=== PATIENT | male | born 1945 | race Caucasian/White ===

== ENCOUNTER 2016-05-02 12:00 | Inpatient (IN) | payer MEDICARE ==
[2016-05-02] VITALS (9 sets, daily range): BP systolic 64–161; BP diastolic 45–69; PULSE 74–92; RESP 16–20; TEMP 95.7–98.9; O2SAT 94–98
[~2016-05-02] VITALS: Ht 170.2 cm; Wt 126.5 kg
[~2016-05-02 12:00] MED LIST: AMIT100T6 PO; ASPI1TAB69 PO; ATOR1TAB18 PO; BACT800T5 PO; BUME2TAB PO; CHOL50006; COZA50TA PO; DIGO0.25 PO; FENO1TAB76 PO; FINA5TAB2 PO; INSU100V2 SQ; ISOS60TA PO; LEVEMIR SC; LINA145C PO; MILN50 PO; NITR1SUB3 SL; NUCY50TA9 PO; OMEG1000 PO; OMEP20CA5 PO; PILO5TAB3 PO; PLAV75TA29 PO; PREG100 PO; RANO500 PO; TAB-TAB PO; TAMS5CAP PO; TOPR25TA PO; TRAM50TA PO; TRIL135C PO; ZOLP10TA3 PO
[2016-05-02] MEDS ORDERED: KETOROLAC TROMETHAMINE 30 MG/ML (IVP) VIAL IVP ONE (12:45)
[2016-05-02] MEDS ORDERED: CLINDAMYCIN INJ 900 MG in SODIUM CHLORIDE 0.9% INJ 100 ML IV ONE (12:45)
--- NOTE | 2016-05-02 12:46 | PD ---
HPI Chief Complaint: Skin Problem Time Seen by Provider: 12:22 Travel History International Travel<30 days: No Contact w/Intl Traveler<30days: No Traveled to known affect area: No History of Present Illness HPI 70yo M with IDDM, HTN, CAD presents to the ED with c/o worsening redness, edema and pain in left lower extremity. Pt was seen at [facility] on 04/26/16 for left leg cellulitis and discharged with bactrim. Pt states he has been taking bactrim as prescribed but symptoms are worsening. Denies any fever, chest pain , sob, n/v, abdominal pain, new weakness or numbness. 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) Blood Disorders: Yes (BRUISING WHERE INSULIN GIVEN, BLOOD IN URINE, FT BLEEDING & NOT ABLE TO STO) Heart Rhythm Problems: No Cancer: No Cardiovascular Problems: Yes High Cholesterol: Yes Chest Pain: Yes Congestive Heart Failure: Yes COPD: No Cerebrovascular Accident: No Coronary Artery Disease: Yes Diabetes: Yes Diminished Hearing: No Endocrine: Yes GERD: No Glaucoma: Yes (POSITIVE FOR HARDIK CONE DISEASE) Genitourinary: No Headaches: No Hepatitis: No Hiatal Hernia: No Hypertension: Yes Immune Disorder: Yes Implanted Vascular Access Dvce: Yes Kidney Stones: No Musculoskeletal: No Neurologic: Yes (NEUROPATHY) Psychiatric: No Reproductive: No Respiratory: No Migraines: No Myocardial Infarction: Yes (1995) Renal Failure: Yes Seizures: No Sleep Apnea: No Thyroid Disease: No Ulcer: No PNEUMOCCOCAL Vaccine (Year): 1 Past Surgical History Abdominal Surgery: Yes (right inquinal hernia repair) Appendectomy: No Body Medical Devices: LOOP RECORDER, SPINAL CORD STIMULATOR Cholecystectomy: No Coronary Stent: Yes (X5. LAST 2006.) Ear Surgery: No Endocrine Surgery: No Eye Surgery: No Genitourinary Surgery: No Gynecologic Surgery: No Neurologic Surgery: Yes (SPINAL STIMULATOR IMPLANT) Oral Surgery: No Pacemaker: No Thoracic Surgery: No Other Surgery: Yes Social History Alcohol Use: Yes (rare) Tobacco Use: No Substance Use: No Allergies-Medications (Allergen,Severity, Reaction): Coded Allergies: Tigan (Verified Allergy, Severe, anaphylactic, 05/02/16) Reported Meds & Prescriptions Reported Meds & Active Scripts Active Bactrim DS (Sulfamethoxazole-Trimethoprim) 800-160 Mg Tab 1 Tab PO BID Pilocarpine 5 Mg Tab 5 Mg PO TID Reported Sisi Dahl Pen Inj (Insulin Glargine) 300 Unit/Ml Pen 100 Units SQ HS Humalog Inj (Insulin Human Lispro) 1,000 Unit/10 Ml Vial 1-9 Units SQ ACHS Max dose at bedtime:( )units; sugars< 70,(0)units; sugars 150-199,(1)unit; sugars 200-249,(3)units; sugars 250-299,(5)units; sugars 300-349,(7)units; sugars more than 349,(9)units. Nucynta (Tapentadol) 50 Mg Tab 50 Mg PO 1100.1500 Nucynta ER (Tapentadol) 100 Mg Sandip 100 Mg PO DAILY Nucynta ER (Tapentadol) 50 Mg Sandip 50 Mg PO HS Tramadol ER 24 HR (Tramadol HCl) 100 Mg Sandip 100 Mg PO DAILY Savella (Milnacipran) 50 Mg Tab 50 Mg PO BID Omeprazole 20 Mg Tab 20 Mg PO DAILY Lyrica (Pregabalin) 100 Mg Cap 100 Mg PO TID Losartan (Losartan Potassium) 50 Mg Tab 50 Mg PO DAILY Fish Oil + D3 (Fish Oil-Cholecalciferol) 1,200-1,000 Mg-Unit Cap 1 Cap PO DAILY Ranexa ER 12 HR (Ranolazine) 500 Mg Tab 500 Mg PO BID Isosorbide Mononitrate ER (Isosorbide Mononitrate) 60 Mg Tab 60 Mg PO DAILY Plavix (Clopidogrel Bisulfate) 75 Mg Tab 75 Mg PO DAILY Atorvastatin (Atorvastatin Calcium) 80 Mg Tab 80 Mg PO HS Aspirin 81 Mg Tabdr 81 Mg PO BID Vitamin D (Cholecalciferol) 5,000 Unit Tab Tramadol (Tramadol HCl) 50 Mg Tab 50 Mg PO BID PRN Toprol XL (Metoprolol Succinate) 25 Mg Tab 50 Mg PO HS Nucynta (Tapentadol) 50 Mg Tab 50 Mg PO BID PRN Flomax (Tamsulosin HCl) 0.4 Mg Cap 0.4 Mg PO BID Savella (Milnacipran) 50 Mg Tab 50 Mg PO BID Nitroglycerin SL (Nitroglycerin) 0.4 Mg Subl 0.4 Mg SL DIRECTED PRN ONE TABLET UNDER THE TONGUE NEEDED FOR CHEST PAIN, MAY REPEAT EVERY FIVE MINUTES FOR A TOTAL OF 3 DOSES OR CALL 911 IF NO RELIEF Linzess (Linaclotide) 145 Mcg Cap 145 Mcg PO DAILY Finasteride 5 Mg Tab 5 Mg PO DAILY Do not crush. Bumetanide 2 Mg Tab 2 Mg PO BID Review of Systems Except as stated in HPI: all other systems reviewed are Neg Physical Exam Narrative GENERAL: 70yo M not in distress. SKIN: Warm and dry. HEAD: Atraumatic. Normocephalic. NECK: Trachea midline. No JVD. CARDIOVASCULAR: Regular rate and rhythm. No murmur appreciated. RESPIRATORY: No accessory muscle use. Clear to auscultation. Breath sounds equal bilaterally. GASTROINTESTINAL: Abdomen soft, non-tender, nondistended. No rebound tenderness or guarding. MUSCULOSKELETAL: LLE: +Erythema dorsum of foot and ankle. +TTP up to mid tib/ fib. +Edema that is worst than right side. Pt has peripheral neuropathy and decreased sensation in bilateral legs that is not new. No ulcers. No drainage or fluctuance. NEUROLOGICAL: Awake and alert. No obvious cranial nerve deficits. Motor grossly within normal limits. Normal speech. PSYCHIATRIC: Appropriate mood and affect; insight and judgment normal. Data Data Last Documented VS Vital Signs Date Time Temp Pulse Resp B/P Pulse Ox O2 Delivery O2 Flow Rate FiO2 05/02/16 12:40 88 18 113/63 98 Room Air 05/02/16 12:39 98.2 Orders Basic Metabolic Panel (Bmp) (05/02/16 12:38) Complete Blood Count With Diff (05/02/16 12:38) Blood Culture (05/02/16 12:38) Iv Access Insert/Monitor (05/02/16 12:38) Ketorolac Inj (Toradol Inj) (05/02/16 12:45) Clindamycin Inj (Cleocin Inj) (05/02/16 12:45) Lactic Acid Sepsis Protocol (05/02/16 12:38) Foot, Limited (2vws) (05/02/16 ) Tibia/Fibula (Ap/Lat) (05/02/16 ) Westergren Sedimentation Rate (05/02/16 12:38) C-Reactive Protein (Crp) (05/02/16 12:38) Us Leg Venous Doppler (05/02/16 ) Admit Order (Ed Use Only) (05/02/16 14:33) Labs Laboratory Tests Test 05/02/16 13:00 White Blood Count 4.6 TH/MM3 Red Blood Count 4.37 MIL/MM3 Hemoglobin 13.2 GM/DL Hematocrit 39.0 % Mean Corpuscular Volume 89.4 FL Mean Corpuscular Hemoglobin 30.2 PG Mean Corpuscular Hemoglobin 33.8 % Concent Red Cell Distribution Width 13.5 % Platelet Count 320 TH/MM3 Mean Platelet Volume 8.6 FL Neutrophils (%) (Auto) 54.5 % Lymphocytes (%) (Auto) 29.6 % Monocytes (%) (Auto) 10.1 % Eosinophils (%) (Auto) 4.3 % Basophils (%) (Auto) 1.5 % Neutrophils # (Auto) 2.4 TH/MM3 Lymphocytes # (Auto) 1.4 TH/MM3 Monocytes # (Auto) 0.5 TH/MM3 Eosinophils # (Auto) 0.2 TH/MM3 Basophils # (Auto) 0.1 TH/MM3 CBC Comment DIFF FINAL Differential Comment Erythrocyte Sedimentation Rate 45 mm/hr Sodium Level 139 MEQ/L Potassium Level 4.0 MEQ/L Chloride Level 102 MEQ/L Carbon Dioxide Level 29.1 MEQ/L Anion Gap 8 MEQ/L Blood Urea Nitrogen 32 MG/DL Creatinine 1.60 MG/DL Estimat Glomerular Filtration 43 ML/MIN Rate Random Glucose 108 MG/DL Lactic Acid Level 1.4 mmol/L Calcium Level 8.9 MG/DL C-Reactive Protein LESS THAN 0.29 MG/DL MDM Medical Decision Making Medical Screen Exam Complete: Yes Emergency Medical Condition: Yes Differential Diagnosis Cellulitis that failed outpatient treatment vs. DVT vs. osteomyelitis Narrative Course 70yo M with left leg cellulitis that failed outpatient treatment. Labs reviewed , no leukocytosis but elevated ESR. lactic acid 1.4. Elevated BUN/creatinine, mildly elevated from baseline. Blood glucose 108. Xray left foot showed nonspecific soft tissue swelling. Xray left tib/fib sowed mild primary degenerative changes of knee joint. US lower lower ext sowed no DVT. Discussed with Dr. Martinez who accepted the patient. I went to evaluate the pt since blood pressure reading was low. Pt states that is his baseline and he is not complaining of any symptoms. Pt has normal mental status with normal HR. Diagnosis Primary Impression: Cellulitis of foot Admitting Information Admitting Physician Requests: Admit Tayla Frank DO May 02, 2016 12:46
[2016-05-02 13:18] LABS: AUTOMATED NEUTROPHIL # 2.4 TH/MM3 (1.8-7.7); BASOPHIL # 0.1 TH/MM3 (0-0.2); BASOPHIL % 1.5 % (0.0-2.0); EOSINOPHIL # 0.2 TH/MM3 (0-0.4); EOSINOPHIL % 4.3 % (0.0-4.0); HEMO FLAGS DIFF FINAL; LYMPH % 29.6 % (9.0-44.0); LYMPHOCYTE # 1.4 TH/MM3 (1.0-4.8); MEAN CELL VOLUME 89.4 FL (80.0-100.0); MEAN CORPUSCULAR HEMOGLOBIN 30.2 PG (27.0-34.0); MEAN CORPUSCULAR HGB CONC 33.8 % (32.0-36.0); MONO % 10.1 % (0.0-8.0); NEUT % 54.5 % (16.0-70.0); PLATELET COUNT 320 TH/MM3 (150-450); RED BLOOD COUNT 4.37 MIL/MM3 (4.50-5.90); RED CELL DISTRIBUTION WIDTH 13.5 % (11.6-17.2); WHITE BLOOD COUNT 4.6 TH/MM3 (4.0-11.0)
[2016-05-02 13:28] LABS: CHLORIDE 102 MEQ/L (98-107); SODIUM (NA) 139 MEQ/L (136-145)
[2016-05-02 13:31] LABS: ANION GAP 8 MEQ/L (5-15); BICARBONATE 29.1 MEQ/L (21.0-32.0)
[2016-05-02 13:32] LABS: BLOOD UREA NITROGEN 32 MG/DL (7-18)
[2016-05-02 13:35] LABS: GLOMERULAR FILTRATION RATE 43 ML/MIN (>89)
--- NOTE | 2016-05-02 13:50 | RADHPO ---
EXAM DATE/TIME: 05/02/2016 13:10 [facility] COMPARISON: No previous studies available for comparison. EXTERNAL COMPARISON : [facility], US LEG, BILATERAL VENOUS DOPPLER, September 30, 2011[facility], US LEG, BILA TERAL VENOUS DOPPLER, December 24, 2013. INDICATIONS : Left leg pain. MEDICAL HISTORY : Myocardial infarction. Hypercholesterolemia. Hypertension. Congestive heart failure. Coronary tanya ry disease. Anticoagulant therapy. Diabetes. Renal disease. GERD. SURGICAL HISTORY : Spinal stimulator implant. Coronary stent. Right inguinal hernia repair. Carpal tunnel release. ENCOUNTER: Initial ACUITY: 1 day PAIN SCORE: 2/10 LOCATION: Left leg. TECHNIQUE: Venous ultrasound of the leg was performed from the inguinal ligament to the proximal calf. Real-capo e, color Doppler and spectral tracing, compression and augmentation techniques were used. FINDINGS: There is normal compressibility of the deep venous system from the inguinal region to the proximal ca lf. No echogenic clot is seen in the lumen of the common femoral, femoral, popliteal, and posterior tibial veins. There is a normal response of the venous system to proximal and distal augmentation an d respiration. CONCLUSION: No evidence of DVT. Ry Yang MD on May 02, 2016 at 13:48 Board Certified Radiologist. This report was verified electronically.
--- NOTE | 2016-05-02 14:01 | RADHPO ---
EXAM DATE/TIME: 05/02/2016 13:44 [facility] COMPARISON: No previous studies available for comparison. INDICATIONS : Left lower leg swelling, redness, and pain, no known injury MEDICAL HISTORY : None. SURGICAL HISTORY : None. ENCOUNTER: Initial ACUITY: 1 week PAIN SCORE: 5/10 LOCATION: Left lower leg FINDINGS: Two view examination of the left tibia demonstrates no evidence of fracture or dislocation. Bony min eralization is normal. The soft tissue structures are intact. There some mild degenerative changes a t the knee joint. CONCLUSION: Mild primary degenerative changes of the knee joint. Otherwise, unremarkable exam of the tibia and fi bula. Ry Yang MD on May 02, 2016 at 13:59 Board Certified Radiologist. This report was verified electronically.
--- NOTE | 2016-05-02 14:02 | RADHPO ---
EXAM DATE/TIME: 05/02/2016 13:49 [facility] COMPARISON: No previous studies available for comparison. INDICATIONS : Left foot swelling, redness, pain, no known injury MEDICAL HISTORY : None. SURGICAL HISTORY : None. ENCOUNTER: Initial ACUITY: 1 week PAIN SCORE: 5/10 LOCATION: Left foot FINDINGS: Two view examination of the left foot demonstrates no dislocation, or fracture. There is diffuse sof t tissue swelling around the foot. The calcaneus is intact. Bony mineralization is normal. There are some primary degenerative changes involving the foot. There is a small heel spur. No radiopaque fore ign bodies. CONCLUSION: 1. Nonspecific soft tissue swelling around the foot. 2. Primary degenerative type changes. 3. Heel spur. Ry Yang MD on May 02, 2016 at 13:59 Board Certified Radiologist. This report was verified electronically.
[2016-05-02] MEDS ORDERED: OMEP20TA PO (14:07)
[2016-05-02] MEDS ORDERED: LYRI100C PO (14:07)
[2016-05-02] MEDS ORDERED: TAPE50TA2 PO (14:07)
[2016-05-02] MEDS ORDERED: FISHCAP4 PO (14:07)
[2016-05-02] MEDS ORDERED: TAPE100T PO (14:07)
[2016-05-02] MEDS ORDERED: TRAM-462 PO (14:07)
[2016-05-02] MEDS ORDERED: NUCY50TA9 PO (14:07)
[2016-05-02] MEDS ORDERED: MILN50 PO (14:07)
[2016-05-02] MEDS ORDERED: HUMALOG SQ (14:07)
[2016-05-02] MEDS ORDERED: LOSA50TA PO (14:07)
[2016-05-02] MEDS ORDERED: INSU1.2I SQ (14:07)
[2016-05-02] MEDS ORDERED: SODIUM CHLOR 0.9% 1000 ML INJ 1,000 ML IV SCH (15:30)
[2016-05-02] MEDS ORDERED: NALOXONE HCL 0.4 MG/ML AMP IV PRN (16:30)
[2016-05-02] MEDS ORDERED: ACETAMINOPHEN 325 MG TAB PO PRN (16:30)
[2016-05-02] MEDS ORDERED: GLUCAGON 1 MG/ML VIAL OTHER PRN (16:30)
[2016-05-02] MEDS ORDERED: ONDANSETRON HCL 4 MG/2 ML VIAL IVP PRN (16:30)
[2016-05-02] MEDS ORDERED: DEXTROSE 50% IN WATER 50 ML VIAL(D50) IV PUSH PRN (16:30)
--- NOTE | 2016-05-02 16:58 | HHI.HP ---
cc: Marky Osullivan MD HPI Service [facility] Primary Care Physician Marky Osullivan MD Admission Diagnosis Cellulitis that failed outpatient treatment Diagnoses: (1) Cellulitis of foot Diagnosis: Principal (2) Failure of outpatient treatment Diagnosis: Principal Chief Complaint: redness, swelling Travel History International Travel<30 Days: No Contact w/Intl Traveler <30 Da: No Traveled to Known Affected Are: No History of Present Illness 70-year-old male with insulin-dependent diabetes, CAD, CHF, hyperlipidemia, hypertension, CKD, and neuropathy is admitted for cellulitis of the left lower extremity with failed outpatient treatment. The patient states redness and swelling started one week ago. He states he went to an urgent care on Tuesday and was prescribed Bactrim twice a day with which he was compliant taking it every day until today. He states his daughter prescribed him Augmentin on Tuesday. He states the redness has worsened extending to the ankle. Patient is noted to have scabbed wound over the legs and arms and he states he has dry skin which he scratches. He does admit to some yellow drainage from a small wound to the left ankle and states there is another one below it. He denies any fevers or chills. Denies any chest pain, shortness of breath, abdominal pain, nausea, vomiting, or diarrhea. Review of Systems Constitutional: DENIES: Fever, Chills Eyes: DENIES: Blurred vision Ears, nose, mouth, throat: DENIES: Throat pain, Ear Pain, Running Nose Respiratory: DENIES: Cough, Shortness of breath Cardiovascular: COMPLAINS OF: Lower Extremity Edema, DENIES: Chest pain Gastrointestinal: DENIES: Abdominal pain, Black stools, Bloody stools, Constipation, Diarrhea, Nausea, Vomiting Genitourinary: DENIES: Hematuria, Dysuria Neurologic: DENIES: Headache Except as stated in HPI: all other systems reviewed are Neg SKIN: redness Past Family Social History Past Medical History CAD, [place] in 1995 and 2000 Hyperlipidemia Hypertension Diabetes Diabetic neuropathy kristel and cone disease CKD BPH Past Surgical History Coronary artery stents 5, last placed in 2007 Loop recorder Spinal cord stimulator Right inguinal hernia repair Lumbar spine surgery by Dr. Herbert regarding 2 discs Bilateral cataract surgery 2 years ago Tonsillectomy Reported Medications Bactrim DS (Sulfamethoxazole-Trimethoprim) 800-160 Mg Tab 1 Tab PO BID Pilocarpine 5 Mg Tab 5 Mg PO TID Reported Sisi Diazloananni Pen Inj (Insulin Glargine) 300 Unit/Ml Pen 100 Units SQ HS Humalog Inj (Insulin Human Lispro) 1,000 Unit/10 Ml Vial 1-9 Units SQ ACHS Max dose at bedtime:( )units; sugars< 70,(0)units; sugars 150-199,(1)unit; sugars 200-249,(3)units; sugars 250-299,(5)units; sugars 300-349,(7)units; sugars more than 349,(9)units. Nucynta (Tapentadol) 50 Mg Tab 50 Mg PO 1100.1500 Nucynta ER (Tapentadol) 100 Mg Sandip 100 Mg PO DAILY Nucynta ER (Tapentadol) 50 Mg Sandip 50 Mg PO HS Tramadol ER 24 HR (Tramadol HCl) 100 Mg Sandip 100 Mg PO DAILY Savella (Milnacipran) 50 Mg Tab 50 Mg PO BID Omeprazole 20 Mg Tab 20 Mg PO DAILY Lyrica (Pregabalin) 100 Mg Cap 100 Mg PO TID Losartan (Losartan Potassium) 50 Mg Tab 50 Mg PO DAILY Fish Oil + D3 (Fish Oil-Cholecalciferol) 1,200-1,000 Mg-Unit Cap 1 Cap PO DAILY Ranexa ER 12 HR (Ranolazine) 500 Mg Tab 500 Mg PO BID Isosorbide Mononitrate ER (Isosorbide Mononitrate) 60 Mg Tab 60 Mg PO DAILY Plavix (Clopidogrel Bisulfate) 75 Mg Tab 75 Mg PO DAILY Atorvastatin (Atorvastatin Calcium) 80 Mg Tab 80 Mg PO HS Aspirin 81 Mg Tabdr 81 Mg PO BID Vitamin D (Cholecalciferol) 5,000 Unit Tab Tramadol (Tramadol HCl) 50 Mg Tab 50 Mg PO BID PRN Toprol XL (Metoprolol Succinate) 25 Mg Tab 50 Mg PO HS Nucynta (Tapentadol) 50 Mg Tab 50 Mg PO BID PRN Flomax (Tamsulosin HCl) 0.4 Mg Cap 0.4 Mg PO BID Savella (Milnacipran) 50 Mg Tab 50 Mg PO BID Nitroglycerin SL (Nitroglycerin) 0.4 Mg Subl 0.4 Mg SL DIRECTED PRN ONE TABLET UNDER THE TONGUE NEEDED FOR CHEST PAIN, MAY REPEAT EVERY FIVE MINUTES FOR A TOTAL OF 3 DOSES OR CALL 911 IF NO RELIEF Linzess (Linaclotide) 145 Mcg Cap 145 Mcg PO DAILY Finasteride 5 Mg Tab 5 Mg PO DAILY Do not crush. Bumetanide 2 Mg Tab 2 Mg PO BID Allergies: Coded Allergies: Tigan (Verified Allergy, Severe, anaphylactic, 05/02/16) Family History Father: at age 78 due to stroke; insulin-dependent diabetic. Mother: Healthy, still living at 91. She lives with patient. Social History Quit smoking 30 years ago. Prior to this smoked 1/2-1 ppd; started smoking at the age of 22. Occasional alcohol use. Denies illicit drug use. Physical Exam Vital Signs Vital Signs Date Time Temp Pulse Resp B/P Pulse Ox O2 Delivery O2 Flow Rate FiO2 05/02/16 15:27 77 18 97/69 95 Room Air 05/02/16 15:12 77 18 78/45 95 Room Air 05/02/16 14:55 80 18 64/45 94 Room Air 05/02/16 14:49 18 05/02/16 12:40 88 18 113/63 98 Room Air 05/02/16 12:39 98.2 88 18 113/63 98 Room Air 05/02/16 12:10 97.9 92 18 85/50 96 Physical Exam GENERAL: This is a very pleasant well-nourished, well-developed patient, in no apparent distress. SKIN: Scabbed lesions to the legs and right arm. There is a yellow crusted lesion measuring only a few millimeters to the left ankle, but no active drainage. Warm erythema to the dorsal left foot and L ankle. No evidence of abscess. No lymphangitis evident. No ulcerations to the plantar left foot. Dry skin over the dorsal left foot. HEAD: Atraumatic. Normocephalic. EYES: No scleral icterus. No injection or drainage. CARDIOVASCULAR: Regular rate and rhythm without murmurs, gallops, or rubs. RESPIRATORY: Clear to auscultation. Breath sounds equal bilaterally. No wheezes , rales, or rhonchi. GASTROINTESTINAL: Abdomen soft, non-tender, distended. MUSCULOSKELETAL: Edema of the right foot. Pitting edema of the left leg and foot. Capillary refill normal in digits of left foot. Mild tenderness to palpation of the left ankle. NEUROLOGICAL: Awake and alert. Motor grossly within normal limits. Normal speech. PSYCHIATRIC: Normal mood and affect. Laboratory Laboratory Tests Test 05/02/16 13:00 White Blood Count 4.6 Red Blood Count 4.37 Hemoglobin 13.2 Hematocrit 39.0 Mean Corpuscular Volume 89.4 Mean Corpuscular Hemoglobin 30.2 Mean Corpuscular Hemoglobin 33.8 Concent Red Cell Distribution Width 13.5 Platelet Count 320 Mean Platelet Volume 8.6 Neutrophils (%) (Auto) 54.5 Lymphocytes (%) (Auto) 29.6 Monocytes (%) (Auto) 10.1 Eosinophils (%) (Auto) 4.3 Basophils (%) (Auto) 1.5 Neutrophils # (Auto) 2.4 Lymphocytes # (Auto) 1.4 Monocytes # (Auto) 0.5 Eosinophils # (Auto) 0.2 Basophils # (Auto) 0.1 CBC Comment DIFF FINAL Differential Comment Erythrocyte Sedimentation Rate 45 Sodium Level 139 Potassium Level 4.0 Chloride Level 102 Carbon Dioxide Level 29.1 Anion Gap 8 Blood Urea Nitrogen 32 Creatinine 1.60 Estimat Glomerular Filtration 43 Rate Random Glucose 108 Lactic Acid Level 1.4 Calcium Level 8.9 C-Reactive Protein LESS THAN 0.29 Date/Time Procedure Status Source Growth 05/02/16 13:05 Aerobic Blood Culture Received Blood Peripheral Pending 05/02/16 13:05 Anaerobic Blood Culture Received Blood Peripheral Pending Result Diagram: 05/02/16 1300 05/02/16 1300 Imaging Last Impressions Tibia/Fibula X-Ray 05/02/16 0000 Signed Impressions: Service Date/Time: Monday, May 02, 2016 13:44 - CONCLUSION: Mild primary degenerative changes of the knee joint. Otherwise, unremarkable exam of the tibia and fibula. Ry Yang MD Lower Extremity Ultrasound 05/02/16 0000 Signed Impressions: Service Date/Time: Monday, May 02, 2016 13:10 - CONCLUSION: No evidence of DVT. Ry Yang MD Foot X-Ray 05/02/16 0000 Signed Impressions: Service Date/Time: Monday, May 02, 2016 13:49 - CONCLUSION: 1. Nonspecific soft tissue swelling around the foot. 2. Primary degenerative type changes. 3. Heel spur. Ry Yang MD Assessment and Plan Assessment and Plan 70-year-old male with: LLE cellulitis: Failed outpatient treatment with Bactrim, Augmentin. Patient is a diabetic. No evidence of sepsis. Normal WBC. -Vancomycin with pharmacy consult and Zosyn IV -Leg elevation -Monitor clinically CKD Stage 3: BUN/Cr 32/1.6. Cr stable upon review of prior labs. -Monitor Diabetes: Glucose 108. -Continue home glargine dose -Bedside Accu-checks and SSI -Adjust as needed Hypotension: chronic. MAP was low initially but improved. D/c IVF as apparently patient has an autonomic issue. -Hold metoprolol, losartan, Imdur, Ranexa. Can resume once BP improves. -Hold Flomax for now. Chronic medical conditions include hyperlipidemia, CAD, CHF, neuropathy, BPH: Continue home medications unless otherwise indicated above. DVT prevention: Avoid SCDs due to leg swelling. Patient on Plavix so will avoid oral anticoagulation due to increased risk of bleeding. Discussed Condition With Dr. Martinez Attending Statement The exam, history, and the medical decision-making described in the above note were completed with the assistance of the mid-level provider. I reviewed and agree with the findings presented. I attest that I had a [id number] encounter with the patient on the same day, and personally performed and documented my assessment and findings in the medical record. Sahara Ellis May 02, 2016 16:58 Renee Martinez MD May 04, 2016 19:32
[2016-05-02] MEDS ORDERED: VANCOMYCIN INJ 1,000 MG in SODIUM CHLOR 0.9% 250 ML INJ 250 ML IV SCH (17:15)
[2016-05-02] MEDS ORDERED: Vancomycin Consult Pharmacy 1 EA OTHER SCH (17:15)
[2016-05-02] MEDS ORDERED: traMADol HCL 50 MG TAB PO PRN (18:00)
[2016-05-02] MEDS: PIPERACIL-TAZO 4.5 GM PREMIX 100 ML IV SCH (18:32)
[2016-05-02] MEDS: PREGABALIN 100 MG CAP PO SCH (18:46)
[2016-05-02] MEDS: BUMETANIDE 1 MG TAB PO SCH (18:46)
[2016-05-02] MEDS ORDERED: VANCOMYCIN INJ 2,000 MG in SODIUM CHLORID 0.9% 500 ML INJ 500 ML IV SCH (20:00)
[2016-05-02] MEDS ORDERED: INSULIN GLARGINE 100 UNIT SQ SCH (21:00)
[2016-05-02] MEDS ORDERED: TAPENTADOL 50 MG PO SCH (21:00)
[2016-05-02] MEDS ORDERED: MILNACIPRAN 50 MG PO SCH (21:00)
[2016-05-02] MEDS ORDERED: ATORVASTATIN 40 MG TAB PO SCH (21:00)
[2016-05-02] MEDS: SODIUM CHLORIDE 0.9% FLUSH 5 ML FLUSH FLUSH SCH (21:40)
[2016-05-02] MEDS: ASPIRIN EC 81 MG TABEC PO SCH (21:45)
[2016-05-02] MEDS: INSULIN ASPART SUPPLEMENTAL SCALE SQ SCH (21:45)
[2016-05-03] VITALS: BP 122/86; PULSE 90; RESP 20; TEMP 97.2; O2SAT 94
[2016-05-03] MEDS: PIPERACIL-TAZO 4.5 GM PREMIX 100 ML IV SCH ×3 (00:39→11:48)
[2016-05-03] MEDS: SODIUM CHLORIDE 0.9% FLUSH 5 ML FLUSH FLUSH PRN ×2 (00:39→06:50)
[2016-05-03 06:48] LABS: AUTOMATED NEUTROPHIL # 4.5 TH/MM3 (1.8-7.7); BASOPHIL # 0.1 TH/MM3 (0-0.2); BASOPHIL % 0.8 % (0.0-2.0); EOSINOPHIL # 0.2 TH/MM3 (0-0.4); EOSINOPHIL % 3.4 % (0.0-4.0); HEMATOCRIT 39.5 % (39.0-51.0); HEMO FLAGS DIFF FINAL; LYMPH % 23.6 % (9.0-44.0); LYMPHOCYTE # 1.7 TH/MM3 (1.0-4.8); MEAN CORPUSCULAR HEMOGLOBIN 30.7 PG (27.0-34.0); MEAN CORPUSCULAR HGB CONC 34.1 % (32.0-36.0); MONO % 7.8 % (0.0-8.0); NEUT % 64.4 % (16.0-70.0); PLATELET COUNT 271 TH/MM3 (150-450); RED BLOOD COUNT 4.38 MIL/MM3 (4.50-5.90); RED CELL DISTRIBUTION WIDTH 13.7 % (11.6-17.2); WHITE BLOOD COUNT 7.1 TH/MM3 (4.0-11.0)
[2016-05-03] MEDS: INSULIN ASPART SUPPLEMENTAL SCALE SQ SCH ×3 (06:51→16:00)
[2016-05-03 06:57] LABS: POTASSIUM 3.7 MEQ/L (3.5-5.1)
[2016-05-03 07:02] LABS: BICARBONATE 28.8 MEQ/L (21.0-32.0)
[2016-05-03 08:00] VITALS: BP 143/74; PULSE 93; RESP 16; TEMP 97.5; O2SAT 98
[2016-05-03] MEDS ORDERED: PANTOPRAZOLE SOD 20 MG DELAYED RELEASE TAB PO SCH (09:00)
[2016-05-03] MEDS ORDERED: FINASTERIDE 5 MG TAB PO SCH (09:00)
[2016-05-03] MEDS ORDERED: TRAMADOL 100 MG PO SCH ×2 (09:00)
[2016-05-03] MEDS ORDERED: TAPENTADOL 100 MG PO SCH ×2 (09:00)
[2016-05-03] MEDS ORDERED: LINACLOTIDE 145 MCG PO SCH (09:00)
[2016-05-03] MEDS ORDERED: PNEUMOCOCCAL POLYVALENT INJ 25 MCG/0.5 ML SYR IM ONE (09:00)
[2016-05-03] MEDS ORDERED: CLOPIDOGREL 75 MG TAB PO SCH (09:00)
[2016-05-03] MEDS: PREGABALIN 100 MG CAP PO SCH ×2 (10:07→11:48)
[2016-05-03] MEDS: BUMETANIDE 1 MG TAB PO SCH (10:07)
[2016-05-03] MEDS: SODIUM CHLORIDE 0.9% FLUSH 5 ML FLUSH FLUSH SCH (10:08)
[2016-05-03] MEDS: ASPIRIN EC 81 MG TABEC PO SCH (10:08)
[2016-05-03] MEDS ORDERED: TAPENTADOL 50 MG PO SCH (11:00)
[2016-05-03] MEDS: TAPENTADOL 50 MG PO SCH ×2 (11:40→15:00)
[2016-05-03 12:00] VITALS: BP 174/99; PULSE 88; RESP 16; TEMP 97.4; O2SAT 97
--- NOTE | 2016-05-03 14:08 | HHI.PR ---
Subjective Remarks Mr. Rivera denies any ankle pain, redness, or fever. He states he has swelling but that has been an intermittent problem. He says he is supposed to wear MIRANDA hose but does not wear them. He would like to go home today if possible. Objective Vitals Vital Signs Date Time Temp Pulse Resp B/P Pulse Ox O2 Delivery O2 Flow Rate FiO2 05/03/16 08:00 97.5 93 16 143/74 98 05/03/16 00:00 97.2 90 20 122/86 94 05/02/16 21:30 98.9 78 20 136/69 99 05/02/16 21:30 95.7 82 20 161/66 96 05/02/16 20:25 20 05/02/16 19:05 74 20 132/65 98 05/02/16 19:00 20 05/02/16 18:48 80 16 117/63 97 Room Air 05/02/16 15:27 77 18 97/69 95 Room Air 05/02/16 15:12 77 18 78/45 95 Room Air 05/02/16 14:55 80 18 64/45 94 Room Air 05/02/16 14:49 18 I/O 05/02/16 05/02/16 05/02/16 05/03/16 05/03/16 05/03/16 07:00 15:00 23:00 07:00 15:00 23:00 Intake Total 350 ml 1500 ml 440 ml Output Total 1650 ml Balance 350 ml 1500 ml -1210 ml Intake Oral 250 ml 900 ml 240 ml IV Total 100 ml 600 ml 200 ml Output Urine Total 1650 ml # Voids 3 # Bowel Movements 0 Result Diagram: 05/03/16 0600 05/03/16 0600 Objective Remarks GENERAL: Well-nourished, well-developed male patient. SKIN: Warm and dry. HEAD: Normocephalic. EYES: No scleral icterus. No injection or drainage. NECK: Supple, trachea midline. No JVD or lymphadenopathy. CARDIOVASCULAR: Regular rate and rhythm without murmurs, gallops, or rubs. RESPIRATORY: Breath sounds equal bilaterally. No accessory muscle use. GASTROINTESTINAL: Abdomen soft, non-tender, nondistended. EXTREMITIES: 1+ pitting pedal edema bilaterally. No erythema or warmth to the left ankle or foot. He does have superficial scratches on the lower extremity which she is unsure how he acquired. NEUROLOGICAL: Awake, alert, and oriented x 3. Non-focal. A/P Problem List: (1) Cellulitis of foot ICD Code: L03.119 Status: Acute (2) Failure of outpatient treatment ICD Code: Z78.9 Status: Acute Assessment and Plan -Cellulitis versus venous stasis dermatitis of the left lower extremity. Appears resolved today. He was treated with a course of Levaquin and Augmentin as an outpatient. He is not compliant with his MIRANDA hose. I encouraged him to try to be compliant with the MIRANDA hose and explained how controlling the edema can help prevent infections as well as the inflammation that comes from venous stasis dermatitis. We'll change him to clindamycin by mouth, apply MIRANDA hose. He has no fevers or leukocytosis, CRP not elevated. Therefore I think he can be discharged home with outpatient follow-up. Haylee Parmar MD May 03, 2016 14:08
[2016-05-03] MEDS ORDERED: CLIN150 PO (14:12)
[2016-05-03] MEDS ORDERED: CLINDAMYCIN 150 MG CAP PO SCH (18:00)
[2016-05-05] MEDS ORDERED: PHARMACY ORDERED LAB XX ONE (19:45)
[2016-07-26] MEDS ORDERED: PILO5TAB3 PO (15:21)
[2016-08-25] MEDS ORDERED: TAMS5CAP PO (10:08)
[2016-08-25] MEDS ORDERED: FINA5TAB2 PO (10:08)
== END 2016-05-03 17:50 | disposition home or self-care (01) | DRG 603 ==
LOC: PHED 12:00 → PHEDA 14:34 → PH3B 21:22
PROVIDERS: ADMIT Family Medicine; ATTEND Family Medicine
DX: L03.116 Cellulitis of left lower limb (principal); E11.22 Type 2 diabetes mellitus with diabetic chronic kidney disease; I95.9 Hypotension, unspecified; E11.40 Type 2 diabetes mellitus with diabetic neuropathy, unspecified; N18.3 Chronic kidney disease, stage 3 (moderate); I50.9 Heart failure, unspecified; N40.0 Benign prostatic hyperplasia without lower urinary tract symptoms; I25.10 Atherosclerotic heart disease of native coronary artery without angina pectoris; E78.5 Hyperlipidemia, unspecified; I95.1 Orthostatic hypotension; I12.9 Hypertensive chronic kidney disease with stage 1 through stage 4 chronic kidney disease, or unspecified chronic kidney disease; I25.2 Old myocardial infarction; H40.89 Other specified glaucoma; I87.2 Venous insufficiency (chronic) (peripheral); Z79.4 Long term (current) use of insulin; Z87.891 Personal history of nicotine dependence; Z91.19 Patient's noncompliance with other medical treatment and regimen; Z95.5 Presence of coronary angioplasty implant and graft
CPT/HCPCS: 73590; 73620; 80048; 82948; 83605; 85025; 85652; 86140; 87040; 93971; 96365; 96375; J1815; J1885; J2543; J3370; J7030; J7040

== ENCOUNTER → 2016-06-15 | Outpatient (CLI) | payer MEDICARE ==
[~2016-06-15] MED LIST changes: -AMIT100T6 PO; +CLIN150 PO; -COZA50TA PO; -DIGO0.25 PO; -FENO1TAB76 PO; +FISHCAP4 PO; +HUMALOG SQ; +INSU1.2I SQ; -INSU100V2 SQ; -LEVEMIR SC; +LOSA50TA PO; +LYRI100C PO; -OMEG1000 PO; -OMEP20CA5 PO; +OMEP20TA PO; -PREG100 PO; -TAB-TAB PO; +TAPE100T PO; +TAPE50TA2 PO; +TRAM-462 PO; -TRIL135C PO; -ZOLP10TA3 PO
[2016-06-15 09:13] LABS: AUTOMATED NEUTROPHIL # 4.4 TH/MM3 (1.8-7.7); BASOPHIL % 0.6 % (0.0-2.0); EOSINOPHIL # 0.3 TH/MM3 (0-0.4); EOSINOPHIL % 3.6 % (0.0-4.0); HEMATOCRIT 40.7 % (39.0-51.0); HEMO FLAGS DIFF FINAL; LYMPH % 25.6 % (9.0-44.0); LYMPHOCYTE # 1.9 TH/MM3 (1.0-4.8); MEAN CELL VOLUME 91.4 FL (80.0-100.0); MEAN CORPUSCULAR HEMOGLOBIN 31.4 PG (27.0-34.0); MEAN CORPUSCULAR HGB CONC 34.3 % (32.0-36.0); MONO % 9.9 % (0.0-8.0); NEUT % 60.3 % (16.0-70.0); PLATELET COUNT 174 TH/MM3 (150-450); RED BLOOD COUNT 4.45 MIL/MM3 (4.50-5.90); RED CELL DISTRIBUTION WIDTH 14.5 % (11.6-17.2); WHITE BLOOD COUNT 7.3 TH/MM3 (4.0-11.0)
[2016-06-15 09:39] LABS: ALKALINE PHOSPHATASE 87 U/L (45-117); ALT (GPT) 41 U/L (12-78); ANION GAP 7 MEQ/L (5-15); AST (GOT) 29 U/L (15-37); BICARBONATE 31.7 MEQ/L (21.0-32.0); BLOOD UREA NITROGEN 30 MG/DL (7-18); CHLORIDE 96 MEQ/L (98-107); GLOMERULAR FILTRATION RATE 51 ML/MIN (>89); HDL CHOLESTEROL 60.2 MG/DL (40.0-60.0); INDIRECT BILIRUBIN 0.7 MG/DL (0.0-0.8); LDL CHOLESTEROL 60 MG/DL (0-99); MAGNESIUM 1.9 MG/DL (1.5-2.5); SODIUM (NA) 135 MEQ/L (136-145); TOTAL BILIRUBIN ADULT 0.9 MG/DL (0.2-1.0)
[2016-06-15 16:11] LABS: HEMOGLOBIN A1b 1.1 %; HEMOGLOBIN Ao 82.1 %; HEMOGLOBIN F 1.2 %; HEMOGLOBIN LA1C 2.6 %; HEMOGLOBIN P3 4.7 %
== END ==
LOC: PLAB 06:42
PROVIDERS: ATTEND Internal Medicine Nephrology
DX: N25.81 Secondary hyperparathyroidism of renal origin (principal); E78.5 Hyperlipidemia, unspecified; N18.3 Chronic kidney disease, stage 3 (moderate); E11.22 Type 2 diabetes mellitus with diabetic chronic kidney disease; Z79.899 Other long term (current) drug therapy
CPT/HCPCS: 36415; 80061; 80069; 80076; 82306; 83036; 83735; 83970; 85025

== ENCOUNTER 2017-02-18 19:21 | Inpatient (IN) | payer MEDICARE ==
[2017-02-18] VITALS (7 sets, daily range): BP systolic 103–192; BP diastolic 69–86; PULSE 88–97; RESP 18; TEMP 98.4; O2SAT 92–99
[~2017-02-18] VITALS: Ht 172.7 cm; Wt 128.4 kg
[~2017-02-18 19:21] MED LIST changes: -ATOR1TAB18 PO; +ATOR80TA45 PO; -BACT800T5 PO; -CLIN150 PO; +NUCY100T9 PO; +NUCY50TA PO; +NUCY50TA10 PO; -NUCY50TA9 PO; -OMEP20TA PO; +OMEP20TA93 PO; -PILO5TAB3 PO; -TAPE100T PO; -TAPE50TA2 PO
[2017-02-18] MEDS ORDERED: ASPIRIN 81 MG CHEW TAB CHEW ONE (21:00)
[2017-02-18] MEDS ORDERED: SODIUM CHLORIDE 0.9% FLUSH 10 ML FLUSH IVF PRN (21:00)
[2017-02-18] MEDS ORDERED: NITROGLYCERIN 2% OINT 1 GM PACKET TOPICAL ONE (21:00)
[2017-02-18] MEDS ORDERED: NITROGLYCERIN 0.4 MG SL 25 TABS/BTL SL ONE (21:00)
[2017-02-18 22:10] LABS: AUTOMATED NEUTROPHIL # 6.8 TH/MM3 (1.8-7.7); BASOPHIL % 0.5 % (0.0-2.0); EOSINOPHIL % 0.1 % (0.0-4.0); HEMATOCRIT 44.2 % (39.0-51.0); LYMPH % 14.6 % (9.0-44.0); LYMPHOCYTE # 1.2 TH/MM3 (1.0-4.8); MEAN CELL VOLUME 89.6 FL (80.0-100.0); MEAN CORPUSCULAR HEMOGLOBIN 29.4 PG (27.0-34.0); MEAN CORPUSCULAR HGB CONC 32.8 % (32.0-36.0); MONO % 5.8 % (0.0-8.0); PLATELET COUNT 190 TH/MM3 (150-450); RED BLOOD COUNT 4.93 MIL/MM3 (4.50-5.90); WHITE BLOOD COUNT 8.4 TH/MM3 (4.0-11.0)
[2017-02-18 22:12] LABS: HEMO FLAGS DIFF FINAL
[2017-02-18 22:16] LABS: CHLORIDE 99 MEQ/L (98-107); SODIUM (NA) 135 MEQ/L (136-145)
--- NOTE | 2017-02-18 22:18 | RADRPT ---
EXAM DATE/TIME: 02/18/2017 21:28 [facility] COMPARISON: No previous studies available for comparison. INDICATIONS : Patient states chest pain and shortness of breath. MEDICAL HISTORY : Myocardial infarction. Hypercholesterolemia. Hypertension. Congestive heart SURGICAL HISTORY : Spinal stimulator implant. Coronary stent. Right inguinal hernia repair.loop recorder carpal tunnel s urgery ENCOUNTER: Initial ACUITY: 1 day PAIN SCORE: 5/10 LOCATION: Bilateral upper chest FINDINGS: A single view of the chest demonstrates mild basilar atelectasis. Mild cardiomegaly. The loop recorde r left hemithorax. No pneumothorax or significant effusion. CONCLUSION: 1. Mild basilar atelectasis. Mild cardiomegaly. Loop recorder left hemithorax. Keagan Peralta MD on February 18, 2017 at 22:14 Board Certified Radiologist. This report was verified electronically.
[2017-02-18 22:20] LABS: ANION GAP 7 MEQ/L (5-15); APTT (PATIENT) 25.5 SEC (24.3-30.1); BICARBONATE 29.1 MEQ/L (21.0-32.0); MAGNESIUM 1.7 MG/DL (1.5-2.5); PROTHROMBIN TIME - PATIENT 10.5 SEC (9.8-11.6)
[2017-02-18 22:21] LABS: BLOOD UREA NITROGEN 25 MG/DL (7-18)
[2017-02-18 22:23] LABS: ALT (GPT) 28 U/L (12-78); AST (GOT) 17 U/L (15-37)
[2017-02-18 22:24] LABS: GLOMERULAR FILTRATION RATE 66 ML/MIN (>89)
[2017-02-18 22:25] LABS: TOTAL BILIRUBIN ADULT 0.5 MG/DL (0.2-1.0)
[2017-02-18 22:26] LABS: ALKALINE PHOSPHATASE 90 U/L (45-117); CREATINE KINASE 135 U/L (39-308)
[2017-02-18 22:38] LABS: CKMB 5.8 NG/ML (0.5-3.6)
[2017-02-18] MEDS ORDERED: DULO1CAP3 PO (22:52)
[2017-02-18] MEDS ORDERED: ASPI81TA81 PO (22:52)
[2017-02-18] MEDS ORDERED: PILO5TAB3 PO (22:52)
[2017-02-18] MEDS ORDERED: CHOL1CAP2 PO (22:52)
[2017-02-18] MEDS ORDERED: D31000CA3 PO (22:52)
[2017-02-18] MEDS ORDERED: ACETAMINOPHEN 325 MG TAB PO PRN (23:15)
[2017-02-18] MEDS ORDERED: MAGNESIUM HYDROXIDE SUSP 30 ML CUP PO PRN (23:15)
[2017-02-18] MEDS ORDERED: ACETAMINOPHEN/HYDROcodone 325 MG/5 MG TAB PO PRN (23:15)
[2017-02-18] MEDS ORDERED: HEPARIN SODIUM - IV 10,000 UNITS/10 ML VIAL IV ONE (23:15)
[2017-02-18] MEDS ORDERED: SENNOSIDES 8.6 MG TAB PO PRN (23:15)
[2017-02-18] MEDS ORDERED: ONDANSETRON HCL 4 MG/2 ML VIAL IVP PRN (23:15)
[2017-02-18] MEDS ORDERED: MORPHINE SULFATE 4 MG/ML INJ IV PUSH PRN (23:15)
[2017-02-18] MEDS ORDERED: SODIUM CHLORIDE 0.9% FLUSH 10 ML FLUSH IV FLUSH PRN (23:15)
[2017-02-18] MEDS ORDERED: BISACODYL 10 MG SUPP RECTAL PRN (23:15)
[2017-02-18] MEDS ORDERED: LACTULOSE SYRUP 20 GM/30 ML CUP PO PRN (23:15)
--- NOTE | 2017-02-18 23:19 | RADRPT ---
EXAM DATE/TIME: 02/18/2017 22:56 [place] COMPARISON: US LEG LEFT VENOUS DOPPLER, May 02, 2016, 13:10. INDICATIONS : Left leg swelling. MEDICAL HISTORY : Myocardial infarction. Congestive heart failure. Hypercholesterolemia. Glaucoma. Autonomic neuropa thy & peripheral . Coronary artery disease. Chest pain. HTN. Dyspnea. Stage III renal disease. Diabet es. Anticoagulant therapy, Plavix & Aspirin 81mg. SURGICAL HISTORY : Coronary artery stent. Cataract extraction. Spinal stimulator implant. Right inguinal hernia repai r. Bilateral carpel tunnel release. ENCOUNTER: Subsequent ACUITY: 1 day PAIN SCORE: 0/10 LOCATION: Left leg. TECHNIQUE: Venous ultrasound of the leg was performed from the inguinal ligament to the proximal calf. Real-capo e, color Doppler and spectral tracing, compression and augmentation techniques were used. FINDINGS: There is normal compressibility of the deep venous system from the inguinal region to the proximal ca lf. No echogenic clot is seen in the lumen of the common femoral, femoral, popliteal, and posterior tibial veins. There is a normal response of the venous system to proximal and distal augmentation an d respiration. CONCLUSION: No DVT is identified in the left lower extremity. Ashwin Stanley MD on February 18, 2017 at 23:17 Board Certified Radiologist. This report was verified electronically.
--- NOTE | 2017-02-18 23:21 | PD ---
HPI Chief Complaint: Cardiac Complaint Time Seen by Provider: 20:53 Travel History International Travel<30 days: No Contact w/Intl Traveler<30days: No Traveled to known affect area: No History of Present Illness HPI patient is a 71-year-old male with a history of coronary artery disease and metabolic syndrome presents emergency department for evaluation of sharp midsternal chest pain without radiation, intermittently started 2 days ago is been gradually getting worse. He states he was started on steroids for a dermatitis his left upper extremity wonders if this has anything to do with it. He states his sugars have also been mildly elevated. Also states when the pain comes on it makes him nauseous and dizzy. He also states she's been fairly sweaty when he has the pain. His last catheter was some years ago. He has been followed by Dr. Turner as well as [facility]. He states took nitroglycerin at home and this relieved his pain. States symptoms are currently mild, intermittent. Context as above, associated signs symptoms as above. Is secondary complaint of some leg swelling his left lower extremity, states he never had any blood clots denies any recent histories, no history of surgery on his lower leg. 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) Blood Disorders: Yes (BRUISING WHERE INSULIN GIVEN, BLOOD IN URINE, FT BLEEDING & NOT ABLE TO STO) Heart Rhythm Problems: No Cancer: No Cardiovascular Problems: Yes High Cholesterol: Yes Chest Pain: Yes Congestive Heart Failure: Yes COPD: No Cerebrovascular Accident: No Coronary Artery Disease: Yes Diabetes: Yes Patient Takes Glucophage: No Diminished Hearing: No Endocrine: Yes GERD: No Glaucoma: Yes (POSITIVE FOR HARDIK CONE DISEASE) Genitourinary: No Headaches: No Hepatitis: No Hiatal Hernia: No Hypertension: Yes Immune Disorder: Yes Implanted Vascular Access Dvce: Yes Kidney Stones: No Musculoskeletal: Yes Neurologic: Yes (NEUROPATHY) Psychiatric: No Reproductive: No Respiratory: No Migraines: No Myocardial Infarction: Yes (1995) Renal Failure: Yes Seizures: No Sleep Apnea: No Thyroid Disease: No Ulcer: No PNEUMOCCOCAL Vaccine (Year): 1 ?: Not Past Surgical History Abdominal Surgery: Yes (right inquinal hernia repair) Appendectomy: No Body Medical Devices: LOOP RECORDER, SPINAL CORD STIMULATOR Cholecystectomy: No Coronary Stent: Yes (X5. LAST 2006.) Ear Surgery: No Endocrine Surgery: No Eye Surgery: No Genitourinary Surgery: No Gynecologic Surgery: No Neurologic Surgery: Yes (SPINAL STIMULATOR IMPLANT) Oral Surgery: No Pacemaker: No Thoracic Surgery: No Other Surgery: Yes Social History Alcohol Use: Yes (daily) Tobacco Use: No Substance Use: No Allergies-Medications (Allergen,Severity, Reaction): Coded Allergies: trimethobenzamide (Verified Allergy, Severe, anaphylactic, 02/18/17) Reported Meds & Prescriptions Reported Meds & Active Scripts Active Flomax (Tamsulosin HCl) 0.4 Mg Cap 0.4 Mg PO DAILY Finasteride 5 Mg Tab 5 Mg PO DAILY Do not crush. Reported Vitamin D-3 (Cholecalciferol) 1,000 Unit Cap 5,000 Units PO DAILY Aspir-81 (Aspirin) 81 Mg Tabdr 81 Mg PO BID Fenofibric Acid Dr (Choline Fenofibrate DR) 135 mg Capdr 135 Mg PO DAILY Duloxetine DR (Duloxetine HCl) 60 Mg Capdr 60 Mg PO DAILY Pilocarpine 5 Mg Tab 5 Mg PO Q8HR Sisi Solostar Pen Inj (Insulin Glargine) 300 Unit/Ml Pen 100 Units SQ HS Humalog Inj (Insulin Human Lispro) 1,000 Unit/10 Ml Vial 1-9 Units SQ ACHS Max dose at bedtime:( )units; sugars< 70,(0)units; sugars 150-199,(1)unit; sugars 200-249,(3)units; sugars 250-299,(5)units; sugars 300-349,(7)units; sugars more than 349,(9)units. Nucynta (Tapentadol) 50 Mg Tab 50 Mg PO 1100.1500 Nucynta ER (Tapentadol) 100 Mg Sandip 100 Mg PO DAILY Nucynta ER (Tapentadol) 50 Mg Sandip 50 Mg PO HS Tramadol ER 24 HR (Tramadol HCl) 100 Mg Sandip 100 Mg PO DAILY Omeprazole 20 Mg Tab 20 Mg PO DAILY Lyrica (Pregabalin) 100 Mg Cap 100 Mg PO TID Losartan (Losartan Potassium) 50 Mg Tab 50 Mg PO DAILY Fish Oil + D3 (Fish Oil-Cholecalciferol) 1,200-1,000 Mg-Unit Cap 1 Cap PO DAILY Ranexa ER 12 HR (Ranolazine) 500 Mg Tab 500 Mg PO BID Isosorbide Mononitrate ER (Isosorbide Mononitrate) 60 Mg Tab 60 Mg PO DAILY Plavix (Clopidogrel Bisulfate) 75 Mg Tab 75 Mg PO DAILY Atorvastatin (Atorvastatin Calcium) 80 Mg Tab 80 Mg PO HS Aspirin 81 Mg Tabdr 81 Mg PO BID Vitamin D (Cholecalciferol) 5,000 Unit Tab Tramadol (Tramadol HCl) 50 Mg Tab 50 Mg PO BID PRN Toprol XL (Metoprolol Succinate) 25 Mg Tab 50 Mg PO HS Nucynta (Tapentadol) 50 Mg Tab 50 Mg PO BID PRN Savella (Milnacipran) 50 Mg Tab 50 Mg PO BID Nitroglycerin SL (Nitroglycerin) 0.4 Mg Subl 0.4 Mg SL DIRECTED PRN ONE TABLET UNDER THE TONGUE NEEDED FOR CHEST PAIN, MAY REPEAT EVERY FIVE MINUTES FOR A TOTAL OF 3 DOSES OR CALL 911 IF NO RELIEF Linzess (Linaclotide) 145 Mcg Cap 145 Mcg PO DAILY Bumetanide 2 Mg Tab 2 Mg PO BID Review of Systems Except as stated in HPI: all other systems reviewed are Neg Physical Exam Narrative GENERAL: Well-developed, morbidly obese male in no obvious distress. SKIN: Focused skin assessment warm/dry. HEAD: Atraumatic. Normocephalic. EYES: Pupils equal and round. No scleral icterus. No injection or drainage. ENT: No nasal bleeding or discharge. Mucous membranes pink and moist. NECK: Trachea midline. No JVD. CARDIOVASCULAR: Regular rate and rhythm. No murmur appreciated. 2+ bilateral equal pulses in all 4 extremities. RESPIRATORY: No accessory muscle use. Clear to auscultation. Breath sounds equal bilaterally. GASTROINTESTINAL: Abdomen soft, non-tender, nondistended. Hepatic and splenic margins not palpable. MUSCULOSKELETAL: No obvious deformities. No clubbing. No cyanosis. No edema. NEUROLOGICAL: Awake and alert. No obvious cranial nerve deficits. Motor grossly within normal limits. Normal speech. PSYCHIATRIC: Appropriate mood and affect; insight and judgment normal. Data Data Last Documented VS Vital Signs Date Time Temp Pulse Resp B/P (MAP) Pulse Ox O2 Delivery O2 Flow Rate FiO2 02/18/17 22:28 90 18 114/86 (95) 95 Room Air 02/18/17 19:44 98.4 Orders Orders Electrocardiogram (02/18/17 20:56) Ckmb (Isoenzyme) Profile (02/18/17 20:56) Complete Blood Count With Diff (02/18/17 20:56) Comprehensive Metabolic Panel (02/18/17 20:56) Magnesium (Mg) (02/18/17 20:56) Prothrombin Time / Inr (Pt) (02/18/17 20:56) Act Partial Throm Time (Ptt) (02/18/17 20:56) Troponin I (02/18/17 20:56) Lipase (02/18/17 20:56) Chest, Single Ap (02/18/17 20:56) Ecg Monitoring (02/18/17 20:56) Iv Access Insert/Monitor (02/18/17 20:56) Oximetry (02/18/17 20:56) Oxygen Administration (02/18/17 20:56) Sodium Chloride 0.9% Flush (Ns Flush) (02/18/17 21:00) Nitroglycerin 2% Oint (Nitroglycerin 2% (02/18/17 21:00) Nitroglycerin Sl (Nitrostat Sl) (02/18/17 21:00) Aspirin Chew (Aspirin Chew) (02/18/17 21:00) Us Leg Venous Doppler (02/18/17 ) CKMB (02/18/17 21:55) CKMB% (02/18/17 21:55) Admit To Inpatient (02/18/17 ) Vital Signs (Adult) Q4H (02/18/17 23:08) Activity Oob With Assistance (02/18/17 23:08) Core Winder / Telemetry .CONTINUOUS (02/18/17 23:08) Intake + Output CHUY.QSHIFT (02/18/17 23:08) Diet Npo (02/19/17 Breakfast) Sodium Chlor 0.9% 1000 Ml Inj (Ns 1000 M (02/18/17 23:08) Sodium Chloride 0.9% Flush (Ns Flush) (02/18/17 23:15) Sodium Chloride 0.9% Flush (Ns Flush) (02/19/17 09:00) Ondansetron Inj (Zofran Inj) (02/18/17 23:15) Comprehensive Metabolic Panel (02/19/17 10:00) Complete Blood Count With Diff (02/19/17 10:00) Troponin I (02/19/17 04:00) Troponin I (02/19/17 10:00) Acetaminophen (Tylenol) (02/18/17 23:15) Acetamin-Hydrocod 325-5 Mg ([place] 5-325 (02/18/17 23:15) Morphine Inj (Morphine Inj) (02/18/17 23:15) Docusate Sodium-Senna (Laurie-Colace) (02/19/17 09:00) Magnesium Hydroxide Liq (Milk Of Magnesi (02/18/17 23:15) Sennosides (Senokot) (02/18/17 23:15) Bisacodyl Supp (Dulcolax Supp) (02/18/17 23:15) Lactulose Liq (Lactulose Liq) (02/18/17 23:15) Inpatient Certification (02/18/17 ) Admit Order (Ed Use Only) (02/18/17 ) Heparin Inj (Heparin Inj) (02/18/17 23:15) Heparin Inj (Heparin Inj) (02/19/17 05:15) Heparin Inj (Heparin Inj) (02/19/17 05:15) Heparin-D5w 25,000 U/250 Ml (Heparin-D5w (02/18/17 23:15) Cbc No Diff, Includes Plts (02/21/17 06:00) Act Partial Throm Time (Ptt) (02/19/17 06:15) Occult Blood (Hemoccult) Stool (02/18/17 23:15) Labs Laboratory Tests Test 02/18/17 21:55 White Blood Count 8.4 TH/MM3 Red Blood Count 4.93 MIL/MM3 Hemoglobin 14.5 GM/DL Hematocrit 44.2 % Mean Corpuscular Volume 89.6 FL Mean Corpuscular Hemoglobin 29.4 PG Mean Corpuscular Hemoglobin Concent 32.8 % Red Cell Distribution Width 14.0 % Platelet Count 190 TH/MM3 Mean Platelet Volume 8.9 FL Neutrophils (%) (Auto) 79.0 % Lymphocytes (%) (Auto) 14.6 % Monocytes (%) (Auto) 5.8 % Eosinophils (%) (Auto) 0.1 % Basophils (%) (Auto) 0.5 % Neutrophils # (Auto) 6.8 TH/MM3 Lymphocytes # (Auto) 1.2 TH/MM3 Monocytes # (Auto) 0.5 TH/MM3 Eosinophils # (Auto) 0.0 TH/MM3 Basophils # (Auto) 0.0 TH/MM3 CBC Comment DIFF FINAL Differential Comment Prothrombin Time 10.5 SEC Prothromb Time International Ratio 1.0 RATIO Activated Partial Thromboplast Time 25.5 SEC Blood Urea Nitrogen 25 MG/DL Creatinine 1.10 MG/DL Random Glucose 199 MG/DL Total Protein 7.3 GM/DL Albumin 3.3 GM/DL Calcium Level 8.8 MG/DL Magnesium Level 1.7 MG/DL Alkaline Phosphatase 90 U/L Aspartate Amino Transf (AST/SGOT) 17 U/L Alanine Aminotransferase (ALT/SGPT) 28 U/L Total Bilirubin 0.5 MG/DL Sodium Level 135 MEQ/L Potassium Level 4.0 MEQ/L Chloride Level 99 MEQ/L Carbon Dioxide Level 29.1 MEQ/L Anion Gap 7 MEQ/L Estimat Glomerular Filtration Rate 66 ML/MIN Total Creatine Kinase 135 U/L Creatine Kinase MB 5.8 NG/ML Troponin I 0.08 NG/ML Lipase 92 U/L MDM Medical Decision Making Medical Screen Exam Complete: Yes Emergency Medical Condition: Yes Differential Diagnosis ACS, AMI, dissection unlikely, DVT. Narrative Course patient is a 71 year old male presents to the er with some fairly typical descriptors for acs, has history of cad, stents. bp and chest discomfort relieved by nitroglycerine. tropnin equivocal at 0.08. with his hpi and rosk factors has indications for heparin. 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 Discussed with trent who agrees. Diagnosis Primary Impression: Acute coronary syndrome Additional Impressions: Left leg swelling Elevated blood pressure reading Admitting Information Admitting Physician Requests: Admit Condition: Stable Cirilo Simmons MD Feb 18, 2017 23:21
[2017-02-18] MEDS: SODIUM CHLOR 0.9% 1000 ML INJ 1,000 ML IV SCH (23:49)
[2017-02-18] MEDS: HEPARIN-D5W 25,000 U/250 ML 250 ML IV PRN (23:54)
[2017-02-19] VITALS (23 sets, daily range): BP systolic 133–164; BP diastolic 74–93; PULSE 86–118; RESP 18–20; TEMP 97–98.1; O2SAT 95–100
[2017-02-19] MEDS ORDERED: HEPARIN SODIUM - IV 10,000 UNITS/10 ML VIAL IV PRN ×2 (05:15)
--- NOTE | 2017-02-19 06:07 | HHI.HP ---
[facility] Service [facility] Primary Care Physician Marky Osullivan MD Admission Diagnosis Acute Coronary Syndrome Diagnoses: (1) Acute coronary syndrome Chief Complaint: Dizziness and chest pain Travel History International Travel<30 Days: No Contact w/Intl Traveler <30 Da: No Traveled to Known Affected Are: No History of Present Illness Mr. Rivera is a 71 y/o male with a history of coronary artery disease status post cardiac stenting 5 with last one placed in 2006, hyperlipidemia, hypertension, diabetes mellitus, diabetic neuropathy, chronic kidney disease, and BPH who presented to the emergency room in [place] on 02/18/2017 for evaluation of 2 days of dizziness and left-sided chest discomfort. On initial evaluation, his cardiac enzymes were elevated with CK-MB at 5.8 and troponin I was 0.08. The case was discussed between the patient's solar energy systems designer Dr. Turner and the ER physician and the decision was made to transfer the patient to [facility] for further evaluation and management. The patient is seen in his hospital room. He reports that he started having dizziness on night 02/17/2017. Accompanying this dizziness was left- sided sharp chest pain similar to what he experienced in 2006 prior to stent placement. He took nitroglycerin and it helped a little bit. However, the chest pain has persisted and has pretty much never gone fully away. When it was at its worst, it was about a 7 out of 10 and was accompanied by shortness of breath, diaphoresis, and indigestion. He denies accompanying nausea or vomiting or palpitations. He is on a heparin drip currently. The nurse called to report francine blood in patient's urine. The patient has seen Dr. Stewart in the past for hematuria and was diagnosed with BPH and placed on medications for this. He denies any dysuria and reports that he has not had any hematuria and nearly one year. Review of Systems Except as stated in HPI: all other systems reviewed are Neg Past Family Social History Past Medical History Coronary artery disease with 5 stents placed with the last one placed in 2006 Hyperlipidemia Hypertension Diabetes mellitus Diabetic neuropathy Tomasz and cone disease Chronic kidney disease BPH Denies any history of COPD or asthma, liver disease, DVT, PE, stroke, seizure, thyroid disease, or cancer. . Past Surgical History Malik artery disease with stent placement 5 Loop recorder Spinal cord stimulator Right inguinal hernia repair Lumbar spine surgery Bilateral cataract surgery Tonsillectomy Cystoscopy by Dr. Stewart . Reported Medications . Reported Meds & Active Scripts Active Flomax (Tamsulosin HCl) 0.4 Mg Cap 0.4 Mg PO DAILY Finasteride 5 Mg Tab 5 Mg PO DAILY Do not crush. Reported Vitamin D-3 (Cholecalciferol) 1,000 Unit Cap 5,000 Units PO DAILY Aspir-81 (Aspirin) 81 Mg Tabdr 81 Mg PO BID Fenofibric Acid Dr (Choline Fenofibrate DR) 135 mg Capdr 135 Mg PO DAILY Duloxetine DR (Duloxetine HCl) 60 Mg Capdr 60 Mg PO DAILY Pilocarpine 5 Mg Tab 5 Mg PO Q8HR [place] Solostar Pen Inj (Insulin Glargine) 300 Unit/Ml Pen 100 Units SQ HS Humalog Inj (Insulin Human Lispro) 1,000 Unit/10 Ml Vial 1-9 Units SQ ACHS Max dose at bedtime:( )units; sugars< 70,(0)units; sugars 150-199,(1)unit; sugars 200-249,(3)units; sugars 250-299,(5)units; sugars 300-349,(7)units; sugars more than 349,(9)units. Nucynta (Tapentadol) 50 Mg Tab 50 Mg PO 1100.1500 Nucynta ER (Tapentadol) 100 Mg Sandip 100 Mg PO DAILY Nucynta ER (Tapentadol) 50 Mg Sandip 50 Mg PO HS Tramadol ER 24 HR (Tramadol HCl) 100 Mg Sandip 100 Mg PO DAILY Omeprazole 20 Mg Tab 20 Mg PO DAILY Lyrica (Pregabalin) 100 Mg Cap 100 Mg PO TID Losartan (Losartan Potassium) 50 Mg Tab 50 Mg PO DAILY Fish Oil + D3 (Fish Oil-Cholecalciferol) 1,200-1,000 Mg-Unit Cap 1 Cap PO DAILY Ranexa ER 12 HR (Ranolazine) 500 Mg Tab 500 Mg PO BID Isosorbide Mononitrate ER (Isosorbide Mononitrate) 60 Mg Tab 60 Mg PO DAILY Plavix (Clopidogrel Bisulfate) 75 Mg Tab 75 Mg PO DAILY Atorvastatin (Atorvastatin Calcium) 80 Mg Tab 80 Mg PO HS Aspirin 81 Mg Tabdr 81 Mg PO BID Vitamin D (Cholecalciferol) 5,000 Unit Tab Tramadol (Tramadol HCl) 50 Mg Tab 50 Mg PO BID PRN Toprol XL (Metoprolol Succinate) 25 Mg Tab 50 Mg PO HS Nucynta (Tapentadol) 50 Mg Tab 50 Mg PO BID PRN Savella (Milnacipran) 50 Mg Tab 50 Mg PO BID Nitroglycerin SL (Nitroglycerin) 0.4 Mg Subl 0.4 Mg SL DIRECTED PRN ONE TABLET UNDER THE TONGUE NEEDED FOR CHEST PAIN, MAY REPEAT EVERY FIVE MINUTES FOR A TOTAL OF 3 DOSES OR CALL 911 IF NO RELIEF Linzess (Linaclotide) 145 Mcg Cap 145 Mcg PO DAILY Bumetanide 2 Mg Tab 2 Mg PO BID Allergies: Coded Allergies: trimethobenzamide (Verified Allergy, Severe, anaphylactic, 02/18/17) Active Ordered Medications Current Medications Sodium Chloride (NS Flush) 2 ml UNSCH PRN IVF FLUSH AFTER USING IV ACCESS; Start 02/18/17 at 21:00; Stop 02/18/17 at 23:28; Status DC Nitroglycerin (Nitroglycerin 2% Oint) 1 inch ONCE ONCE TOPICAL Last administered on 02/18/17 22:11; Start 02/18/17 at 21:00; Stop 02/18/17 at 21:09 ; Status DC Nitroglycerin (Nitrostat Sl) 0.4 mg ONCE ONCE SL Last administered on 22:11; Start 02/18/17 at 21:00; Stop 02/18/17 at 21:09; Status DC Aspirin (Aspirin Chew) 324 mg ONCE ONCE CHEW Last administered on 02/18/17 22 :11; Start 02/18/17 at 21:00; Stop 02/18/17 at 21:09; Status DC Sodium Chloride 1,000 ml @ 100 mls/hr Q10H IV Last administered on 02/18/17 23:49; Start 02/18/17 at 23:08 Sodium Chloride (NS Flush) 2 ml UNSCH PRN IV FLUSH FLUSH AFTER USING IV ACCESS ; Start 02/18/17 at 23:15 Sodium Chloride (NS Flush) 2 ml BID IV FLUSH ; Start 02/19/17 at 09:00 Ondansetron HCl (Zofran Inj) 4 mg Q6H PRN IVP NAUSEA OR VOMITING; Start at 23:15 Acetaminophen (Tylenol) 650 mg Q6H PRN PO FEVER/PAIN SCALE 1 TO 2; Start at 23:15 Acetaminophen/ Hydrocodone Bitart ([place] 5-325 Mg) 1 tab Q4H PRN PO PAIN SCALE 3 TO 5; Start 02/18/17 at 23:15 Morphine Sulfate (Morphine Inj) 2 mg Q3H PRN IV PUSH Pain 6-10; Start 02/18/17 at 23:15 Senna/Docusate Sodium (Laurie-Colace) 1 tab BID PO ; Start 02/19/17 at 09:00 Magnesium Hydroxide (Milk Of Magnesia Liq) 30 ml Q12H PRN PO Mild constipation ; Start 02/18/17 at 23:15 Sennosides (Senokot) 17.2 mg Q12H PRN PO Moderate constipation; Start 02/18/17 at 23:15 Bisacodyl (Dulcolax Supp) 10 mg DAILY PRN RECTAL SEVERE CONSITIPATION; Start 02/18/17 at 23:15 Lactulose (Lactulose Liq) 30 ml DAILY PRN PO SEVERE CONSITIPATION; Start at 23:15 Heparin Sodium (Porcine) (Heparin Inj) 5,000 units ONCE ONCE IV Last administered on 02/18/17t 23:49; Start 02/18/17 at 23:15; Stop 02/18/17 at 23:18 ; Status DC Heparin Sodium (Porcine) (Heparin Inj) 5,000 units UNSCH PRN IV APTT LESS THAN 25; Start 02/19/17 at 05:15 Heparin Sodium (Porcine) (Heparin Inj) 2,500 units UNSCH PRN IV APTT 25 TO 39; Start 02/19/17 at 05:15 Heparin Sodium/ Dextrose 250 ml @ 10 mls/hr TITRATE PRN IV Coagulation Management Last administered on 02/18/17t 23:54; Start 02/18/17 at 23:15 . Family History Mother is healthy and alive at age 96 Father at age 78 secondary to CVA and also had diabetes mellitus . Social History Tobacco smoked 1/2-1 pack per day for about 10 years, quit 40 years ago. Alcohol: Occasional Illicit drugs: Denies . Physical Exam Vital Signs Vital Signs Date Time Temp Pulse Resp B/P (MAP) Pulse Ox O2 Delivery O2 Flow Rate FiO2 02/19/17 03:42 92 18 138/87 (104) 98 02/19/17 02:40 88 18 151/81 (104) 95 Room Air 02/19/17 01:44 96 Room Air 02/19/17 01:40 92 18 142/82 (102) 96 Room Air 02/19/17 00:40 94 18 164/79 (107) Room Air 02/18/17 23:40 90 18 140/77 (98) 99 Room Air 02/18/17 22:28 90 18 114/86 (95) 95 Room Air 02/18/17 22:23 94 18 103/77 (86) 94 Room Air 02/18/17 22:16 18 02/18/17 22:00 88 18 131/73 (92) 98 Room Air 02/18/17 21:20 98 02/18/17 20:59 89 18 97 Room Air 02/18/17 20:59 89 18 176/86 (116) 97 Room Air 02/18/17 19:44 98.4 97 18 192/69 (110) 92 Physical Exam GENERAL: This is a morbidly obese male patient with a generally jacquie complexion , in no apparent distress. SKIN: Cool and dry. Multiple scratches noted on lower extremities. HEAD: Atraumatic. Normocephalic. EYES: No scleral icterus. No injection or drainage. ENT: Nose without bleeding, purulent drainage. NECK: Trachea midline. No JVD. CARDIOVASCULAR: Regular rate and rhythm without murmurs, gallops, or rubs. +2 ankle edema on left and +1 ankle edema on right. RESPIRATORY: Clear to auscultation. Breath sounds equal bilaterally. No wheezes , rales, or rhonchi. GASTROINTESTINAL: Abdomen obese with normally active bowel sounds, soft, non- tender, nondistended. No guarding. MUSCULOSKELETAL: Extremities without clubbing, cyanosis. No calf tenderness. NEUROLOGICAL: Awake and alert. Motor and sensory grossly within normal limits. Normal speech. . Laboratory Laboratory Tests Test 02/18/17 21:55 02/19/17 05:02 02/19/17 05:30 White Blood Count 8.4 Red Blood Count 4.93 Hemoglobin 14.5 Hematocrit 44.2 Mean Corpuscular Volume 89.6 Mean Corpuscular Hemoglobin 29.4 Mean Corpuscular Hemoglobin Concent 32.8 Red Cell Distribution Width 14.0 Platelet Count 190 Mean Platelet Volume 8.9 Neutrophils (%) (Auto) 79.0 Lymphocytes (%) (Auto) 14.6 Monocytes (%) (Auto) 5.8 Eosinophils (%) (Auto) 0.1 Basophils (%) (Auto) 0.5 Neutrophils # (Auto) 6.8 Lymphocytes # (Auto) 1.2 Monocytes # (Auto) 0.5 Eosinophils # (Auto) 0.0 Basophils # (Auto) 0.0 CBC Comment DIFF FINAL Differential Comment Prothrombin Time 10.5 Prothromb Time International Ratio 1.0 Activated Partial Thromboplast Time 25.5 Blood Urea Nitrogen 25 Creatinine 1.10 Random Glucose 199 Total Protein 7.3 Albumin 3.3 Calcium Level 8.8 Magnesium Level 1.7 Alkaline Phosphatase 90 Aspartate Amino Transf (AST/SGOT) 17 Alanine Aminotransferase (ALT/SGPT) 28 Total Bilirubin 0.5 Sodium Level 135 Potassium Level 4.0 Chloride Level 99 Carbon Dioxide Level 29.1 Anion Gap 7 Estimat Glomerular Filtration Rate 66 Total Creatine Kinase 135 Creatine Kinase MB 5.8 Troponin I 0.08 Lipase 92 Result Diagram: 02/18/17215402/18/172154 Imaging Last Impressions Chest X-Ray 02/18/172055 Signed Impressions: Service Date/Time: Saturday, February 18, 2017 21:28 - CONCLUSION: 1. Mild basilar atelectasis. Mild cardiomegaly. Loop recorder left hemithorax. Keagan Peralta MD Lower Extremity Ultrasound 02/18/17 0000 Signed Impressions: Service Date/Time: Saturday, February 18, 2017 22:56 - CONCLUSION: No DVT is identified in the left lower extremity. Ashwin Stanley MD Capcurryi VTE Risk Assessment Caprini VTE Risk Assessment: Mod/High Risk (score >= 2) Caprini Risk Assessment Model Point Value = 1 Point Value = 2 Point Value = 3 Point Value = 5 Age 41-60 Minor surgery BMI > 25 kg/m2 Swollen legs Varicose veins or History of unexplained or recurrent spontaneous Oral contraceptives or hormone replacement Sepsis (< 1 month) Serious lung disease, including pneumonia (< 1 month) Abnormal pulmonary function Acute myocardial infarction Congestive heart failure (< 1 month) History of inflammatory bowel disease Medical patient at bed rest Age 61-74 Arthroscopic surgery Major open surgery (> 45 min) Laparoscopic surgery (> 45 min) Malignancy Confined to bed (> 72 hours) Immobilizing plaster cast Central venous access Age >= 75 History of VTE Family history of VTE Factor V Leiden Prothrombin [id number] Lupus anticoagulant Anticardiolipin antibodies Elevated serum homocysteine Heparin-induced thrombocytopenia Other congenital or acquired thrombophilia Stroke (< 1 month) Elective arthroplasty Hip, pelvis, or leg fracture Acute spinal cord injury (< 1 month) Prophylaxis Regimen Total Risk Factor Score Risk Level Prophylaxis Regimen 0-1 Low Early ambulation 2 Moderate Order ONE of the following: *Sequential Compression Device (SCD) *Heparin 5000 units SQ BID 3-4 Higher Order ONE of the following medications: *Heparin 5000 units SQ TID *Enoxaparin/Lovenox 40 mg SQ daily (WT < 150 kg, CrCl > 30 mL/min) *Enoxaparin/Lovenox 30 mg SQ daily (WT < 150 kg, CrCl > 10-29 mL/min) *Enoxaparin/Lovenox 30 mg SQ BID (WT < 150 kg, CrCl > 30 mL/min) AND/OR *Sequential Compression Device (SCD) 5 or more Highest Order ONE of the following medications: *Heparin 5000 units SQ TID (Preferred with Epidurals) *Enoxaparin/Lovenox 40 mg SQ daily (WT < 150 kg, CrCl > 30 mL/min) *Enoxaparin/Lovenox 30 mg SQ daily (WT < 150 kg, CrCl > 10-29 mL/min) *Enoxaparin/Lovenox 30 mg SQ BID (WT < 150 kg, CrCl > 30 mL/min) AND *Sequential Compression Device (SCD) Assessment and Plan Problem List: (1) Acute coronary syndrome ICD Code: I24.9 - Acute ischemic heart disease, unspecified (2) Hematuria ICD Code: R31.9 - Hematuria, unspecified (3) 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 Rivera is a 71 y/o male with a history of coronary artery disease status post cardiac stenting 5 with last one placed in 2006, hyperlipidemia, hypertension, diabetes mellitus, diabetic neuropathy, chronic kidney disease, and BPH who presented to the emergency room in [place] on 02/18/2017 for evaluation of 2 days of dizziness and left-sided chest discomfort. On initial evaluation, his cardiac enzymes were elevated with CK-MB at 5.8 and troponin I was 0.08. The case was discussed between the patient's solar energy systems designer Dr. Turner and the ER physician and the decision was made to transfer the patient to [facility] for further evaluation and management. Symptoms consistent with acute coronary syndrome - Troponin I 0.08 and CKMB 5.8, awaiting repeat labs to trend - cardiology consulted - appreciate Dr. Turner's assistance - Heparin drip - Resume home Bumex, Plavix, Imdur, Cozaar, metoprolol, Ranexa Hematuria - uncertain etiology - patient has a history of hematuria with finding of BPH - will check stat H&H and monitor - consider consulting Dr. Stewart - resume home Flomax and Finasteride Type 2 Diabetes Mellitus - Resume home basal insulin - Accu-Cheks before meals and at bedtime with low-dose NovoLog sliding scale coverage - Hypoglycemia protocol - Monitor trends and blood glucose readings and adjust treatments as indicated Chronic kidney disease, stage III - BUN 25, creatinine 1.10, estimated GFR 66 - renal function appears somewhat improved from prior labs - Repeat labs in a.m. and follow trends in renal indices - Avoid nephrotoxins DVT prophylaxis - On heparin drip for now . Discussed Condition With Dr. Pretty, patient, RN . Physician Certification 2 Midnight Certification Type: Admission for Inpatient Services Order for Inpatient Services The services are ordered in accordance with Medicare regulations or non- Medicare payer requirements, as applicable. In the case of services not specified as inpatient-only, they are appropriately provided as inpatient services in accordance with the 2-midnight benchmark. Estimated LOS (days): 3 days is the estimated time the patient will need to remain in the hospital, assuming treatment plan goals are met and no additional complications. Post-Hospital Plan: Not yet determined Elaina Malagon Feb 19, 2017 06:07
[2017-02-19 06:12] LABS: BLOOD, URINE LARGE (NEG); COMMENT (UR) CULT NOT INDICATED; CULTURE IF INDICATED CULT NOT INDICATED; GLUCOSE,URINE NEG (NEG); KETONE, URINE NEG (NEG); MUCUS URINE FEW /lpf (OCC); NITRITE,URINE NEG (NEG); URINE COLOR LIGHT-RED (YELLW/STRAW)
[2017-02-19 06:15] LABS: APTT (PATIENT) 42.8 SEC (24.3-30.1)
[2017-02-19] MEDS ORDERED: traMADol HCL 50 MG TAB PO PRN (06:45)
[2017-02-19] MEDS ORDERED: GLUCAGON 1 MG/ML VIAL OTHER PRN (06:45)
[2017-02-19] MEDS ORDERED: DEXTROSE 50% IN WATER 50 ML VIAL(D50) IV PUSH PRN (06:45)
[2017-02-19 06:49] LABS: HEMATOCRIT 41.3 % (39.0-51.0); REVIEW FLAG FINAL
[2017-02-19] MEDS: INSULIN ASPART SUPPLEMENTAL SCALE SQ SCH ×4 (07:44→21:00)
[2017-02-19] MEDS: TAMSULOSIN HCL 0.4 MG CAP PO SCH (08:02)
[2017-02-19] MEDS: BUMETANIDE 1 MG TAB PO SCH ×2 (08:03→22:10)
[2017-02-19] MEDS: LOSARTAN 50 MG TAB PO SCH (08:03)
[2017-02-19] MEDS: RANOLAZINE 500 MG EXTENDED RELEASE TAB PO SCH ×2 (08:03→22:10)
[2017-02-19] MEDS: ISOSORBIDE MONONITRATE 60 MG TAB PO SCH (08:03)
[2017-02-19] MEDS: PANTOPRAZOLE SOD 20 MG DELAYED RELEASE TAB PO SCH (08:03)
[2017-02-19] MEDS: CLOPIDOGREL 75 MG TAB PO SCH (08:03)
[2017-02-19] MEDS: FINASTERIDE 5 MG TAB PO SCH (08:03)
[2017-02-19] MEDS: PREGABALIN 100 MG CAP PO SCH ×3 (08:04→17:40)
[2017-02-19] MEDS: DOCUSATE SODIUM 50 MG/SENNA 8.6 MG TAB PO SCH ×2 (08:04→22:10)
[2017-02-19] MEDS: SODIUM CHLORIDE 0.9% FLUSH 10 ML FLUSH IV FLUSH SCH ×2 (08:05→21:00)
[2017-02-19] MEDS: DULoxetine HCl DR 60 MG CAP PO SCH (08:05)
[2017-02-19] MEDS ORDERED: MILNACIPRAN 50 MG PO SCH (09:00)
[2017-02-19] MEDS: SODIUM CHLOR 0.9% 1000 ML INJ 1,000 ML IV SCH (09:08)
[2017-02-19] MEDS: FENOFIBRATE 145 MG TAB PO SCH (09:43)
[2017-02-19] MEDS ORDERED: [UNRECOGNIZED DRUG - OTHER] PO SCH (12:00)
[2017-02-19] MEDS ORDERED: TAPENTADOL PO SCH ×2 (12:00→21:00)
[2017-02-19 12:37] LABS: AUTOMATED NEUTROPHIL # 5.1 TH/MM3 (1.8-7.7); BASOPHIL % 0.4 % (0.0-2.0); EOSINOPHIL # 0.2 TH/MM3 (0-0.4); EOSINOPHIL % 1.8 % (0.0-4.0); HEMATOCRIT 44.4 % (39.0-51.0); HEMO FLAGS DIFF FINAL; LYMPH % 32.6 % (9.0-44.0); MEAN CELL VOLUME 90.3 FL (80.0-100.0); MEAN CORPUSCULAR HEMOGLOBIN 30.8 PG (27.0-34.0); MEAN CORPUSCULAR HGB CONC 34.1 % (32.0-36.0); MONO % 9.3 % (0.0-8.0); NEUT % 55.9 % (16.0-70.0); PLATELET COUNT 196 TH/MM3 (150-450); RED BLOOD COUNT 4.92 MIL/MM3 (4.50-5.90); RED CELL DISTRIBUTION WIDTH 14.7 % (11.6-17.2); WHITE BLOOD COUNT 9.2 TH/MM3 (4.0-11.0)
[2017-02-19 12:59] LABS: ALT (GPT) 25 U/L (12-78)
[2017-02-19 13:03] LABS: ALKALINE PHOSPHATASE 93 U/L (45-117); TOTAL BILIRUBIN ADULT 0.7 MG/DL (0.2-1.0)
[2017-02-19 13:05] LABS: ANION GAP 9 MEQ/L (5-15); AST (GOT) 24 U/L (15-37); BICARBONATE 31.5 MEQ/L (21.0-32.0); BLOOD UREA NITROGEN 25 MG/DL (7-18); CHLORIDE 98 MEQ/L (98-107); GLOMERULAR FILTRATION RATE 63 ML/MIN (>89); POTASSIUM 3.4 MEQ/L (3.5-5.1); SODIUM (NA) 138 MEQ/L (136-145)
[2017-02-19] MEDS: PILOCARPINE HCL 5 MG TAB PO SCH ×2 (14:14→22:10)
[2017-02-19 14:31] LABS: APTT (PATIENT) 37.8 SEC (24.3-30.1)
--- NOTE | 2017-02-19 16:47 | MB ---
cc: BENSON PARR MD, BARTON G. DO DATE OF CONSULTATION 02/19/17 IMPRESSION 1. Recurrent angina/unstable angina. 2. Known atherosclerotic heart disease, history of multiple stents, most recent cath 2006. The patient believe it was in [place]. 3. Diabetes. 4. Dyslipidemia. 5. Obesity. 6. Chronic renal failure, stage II mild 7. Prostatism. 8. Hematuria since the patient has been started on heparin drip. 9. Mild neuropathy. 10. Chronic back pain, lumbar radiculopathy RECOMMENDATION 1. Treat the patient as acute coronary syndrome. 2. We will schedule the patient for diagnostic cardiac catheterization. 3. He may need cystoscopy prior to discharge from the hospital. 4. Dual antiplatelet therapy. CLINICAL DATA Mr. Rivera is a 71-year-old male admitted to the hospital with chest pain. He states he has been feeling weak and had some mild dizziness for several days. He developed left-sided chest discomfort which is somewhat atypical, but he states it is reminiscent of his previous anginal symptoms prior to stenting. He states he has had a myocardial infarction in the remote past. He also states that he has been told that he had congestive heart failure. In the emergency room at the [facility] in [place], his troponin was 0.08. His EKG did not show any ST-T changes. He has risk factors of hypertension, diabetes, obesity, dyslipidemia, sedentary lifestyle, etc. He does not currently smoke. ALLERGIES TRIMETHOBENZAMIN MEDICATIONS At time of admission 1. Vitamins. 2. Aspirin 81 daily. 3. Fenofibrate 135 daily 4. Duloxetine 60 daily, 5. Pilocarpine 5 mg p.o. q.8 h 6. Fillister insulin Glargine Penand 100 units at bedtime 7. Humalog insulin Lispro sliding scale 8. 50 mg b.i.d. 9. Omeprazole 20 daily 10. Lyrica 100 t.i.d. 11. Losartan 50 daily, 12. Fish oil capsules 13. Ranexa 500 b.i.d. 14. Isosorbide mononitrate 60 daily, 15. Plavix 75 daily, 16. Atorvastatin 80 daily, 17. Toprol XL 25 in the morning, 50 in the evening, 18. Tramadol 50 b.i.d. 19. Cevela 50 mg b.i.d. 20. Sublingual nitroglycerin 21. 145 mcg daily 22. Bumetanide 2 mg b.i.d. REVIEW OF SYSTEMS He has no history of seizure, stroke or TIA. No history of asthma or bronchitis. I suspect the patient does have obstructive sleep apnea. It is unclear if he has ever had a sleep study. He denies a history of GI bleeding or peptic ulcer disease. There is no history of liver or gallbladder disease. There is a history of diabetic nephropathy. No history of DVT, but he states his left leg only swells. PAST SURGICAL HISTORY 1. Loop recorder 2. Multiple cardiac catheterizations 3. Spinal cord stimulator 4. Right inguinal herniorrhaphy 5. Lumbar spine surgery, 6. Cataract surgery, 7. Tonsillectomy 8. Cystoscopy. 9. He has had no trans____logical deficits amaurosis fugax. He has had no claudication symptoms. PHYSICAL EXAMINATION GENERAL: Alert, oriented male in no apparent distress. VITAL SIGNS: Appears to be in a regular rhythm, heart rate is 100, blood pressure 133/70. HEENT: Anicteric sclerae. Jugular venous pressures are normal. There are no bruits. He has a mass probably a lipoma in his left side of his face extending underneath the jaw. No carotid bruits are noted. LUNGS: He has clear lung bruce. HEART: Hyperdynamic circulation, regular rate and rhythm, 1/6 systolic ejection murmur. ABDOMEN: Soft, nontender. Exam very limited, no obvious masses noted. EXTREMITIES: He has 2+ edema care home up the garcia on his left leg with trophic changes of venostasis. CARDIOLOGY STUDIES 12-lead electrocardiogram - normal sinus rhythm, nonspecific ST-T changes. LABORATORY DATA Cardiac enzymes as noted above the minimally elevated 0.08-0.09, lytes 138, 3.4, 9832 with a BUN of 25, creatinine of 1.15, GFR 63. CK-MB 5.8 but total CPK not reported. DISCUSSION This is a 71-year-old male admitted via the [place] emergency room with atypical chest pain. He has minimal elevation in his troponins, no EKG changes. Recommendations are as noted above. We will increase the patient's beta miguelina at this point in time and the patient will be scheduled for cardiac catheterization. DO IRINEO Nicolas /3:59 PM /4:27 PM
[2017-02-19] MEDS: NITROGLYCERIN 2% OINT 1 GM PACKET TOPICAL SCH (17:40)
[2017-02-19] MEDS ORDERED: POTASSIUM CHLORIDE 10 MEQ CONTROLLED RELEASE TAB PO ONE (19:30)
[2017-02-19 20:59] LABS: APTT (PATIENT) 35.7 SEC (24.3-30.1)
[2017-02-19] MEDS: INSULIN DETEMIR 100 UNITS/ML VIAL SQ SCH (21:00)
[2017-02-19] MEDS ORDERED: METOPROLOL SUCCINATE 25 MG EXTENDED RELEASE TAB PO SCH (21:00)
[2017-02-19] MEDS ORDERED: [UNRECOGNIZED DRUG - OTHER] PO SCH (21:00)
[2017-02-19] MEDS: METOPROLOL TARTRATE 50 MG TAB PO SCH (22:10)
[2017-02-19] MEDS: ATORVASTATIN 80 MG TAB PO SCH (22:11)
[2017-02-19] MEDS: HEPARIN-D5W 25,000 U/250 ML 250 ML IV PRN (22:30)
[2017-02-20] VITALS (27 sets, daily range): BP systolic 98–146; BP diastolic 58–97; PULSE 84–112; RESP 18–20; TEMP 97.6–98.1; O2SAT 93–98
[2017-02-20 00:28] LABS: BLOOD, URINE LARGE (NEG); COMMENT (UR) CULT NOT INDICATED; CULTURE IF INDICATED CULT NOT INDICATED; GLUCOSE,URINE NEG (NEG); KETONE, URINE NEG (NEG); NITRITE,URINE NEG (NEG)
[2017-02-20] MEDS: NITROGLYCERIN 2% OINT 1 GM PACKET TOPICAL SCH ×4 (00:31→17:22)
[2017-02-20 00:35] LABS: URINE COLOR LIGHT-RED (YELLW/STRAW)
[2017-02-20] MEDS: PILOCARPINE HCL 5 MG TAB PO SCH ×3 (06:05→21:04)
[2017-02-20 07:29] LABS: APTT (PATIENT) 48.7 SEC (24.3-30.1)
[2017-02-20] MEDS: INSULIN ASPART SUPPLEMENTAL SCALE SQ SCH ×4 (08:00→21:00)
[2017-02-20] MEDS: DOCUSATE SODIUM 50 MG/SENNA 8.6 MG TAB PO SCH ×2 (08:48→21:04)
[2017-02-20] MEDS: ISOSORBIDE MONONITRATE 60 MG TAB PO SCH (08:48)
[2017-02-20] MEDS: METOPROLOL TARTRATE 50 MG TAB PO SCH ×2 (08:48→21:04)
[2017-02-20] MEDS: DULoxetine HCl DR 60 MG CAP PO SCH (08:49)
[2017-02-20] MEDS: CLOPIDOGREL 75 MG TAB PO SCH (08:49)
[2017-02-20] MEDS: LOSARTAN 50 MG TAB PO SCH (08:49)
[2017-02-20] MEDS: PREGABALIN 100 MG CAP PO SCH ×3 (08:50→17:22)
[2017-02-20] MEDS: RANOLAZINE 500 MG EXTENDED RELEASE TAB PO SCH ×2 (08:50→21:04)
[2017-02-20] MEDS: ASPIRIN EC 81 MG TABEC PO SCH (08:50)
[2017-02-20] MEDS: PANTOPRAZOLE SOD 20 MG DELAYED RELEASE TAB PO SCH (08:50)
[2017-02-20] MEDS: FINASTERIDE 5 MG TAB PO SCH (08:51)
[2017-02-20] MEDS: FENOFIBRATE 145 MG TAB PO SCH (08:51)
[2017-02-20] MEDS: SODIUM CHLORIDE 0.9% FLUSH 10 ML FLUSH IV FLUSH SCH ×2 (09:00→21:00)
[2017-02-20] MEDS: TAMSULOSIN HCL 0.4 MG CAP PO SCH (09:00)
[2017-02-20 09:01] LABS: BASOPHIL # 0.1 TH/MM3 (0-0.2); BASOPHIL % 0.7 % (0.0-2.0); EOSINOPHIL # 0.2 TH/MM3 (0-0.4); EOSINOPHIL % 1.8 % (0.0-4.0); HEMATOCRIT 49.2 % (39.0-51.0); HEMO FLAGS DIFF FINAL; LYMPH % 29.9 % (9.0-44.0); LYMPHOCYTE # 2.6 TH/MM3 (1.0-4.8); MEAN CELL VOLUME 90.8 FL (80.0-100.0); MEAN CORPUSCULAR HEMOGLOBIN 30.6 PG (27.0-34.0); MEAN CORPUSCULAR HGB CONC 33.7 % (32.0-36.0); MONO % 10.1 % (0.0-8.0); NEUT % 57.5 % (16.0-70.0); PLATELET COUNT 208 TH/MM3 (150-450); RED BLOOD COUNT 5.41 MIL/MM3 (4.50-5.90); WHITE BLOOD COUNT 8.7 TH/MM3 (4.0-11.0)
[2017-02-20 09:19] LABS: BICARBONATE 34.6 MEQ/L (21.0-32.0); POTASSIUM 3.6 MEQ/L (3.5-5.1)
[2017-02-20 09:22] LABS: HDL CHOLESTEROL 88.2 MG/DL (40.0-60.0)
[2017-02-20] MEDS: BUMETANIDE 1 MG TAB PO SCH ×2 (09:24→21:04)
--- NOTE | 2017-02-20 12:38 | HHI.PR ---
Subjective Remarks Pt has no chest pain since admission. Denies shortness of breath. States Dr. Osullivan is still his PCP but he hasn't seen him in awhile, would like to be seen by him. +hematuria still, H&H stable. Not sure if he had a cystoscopy with Dr. Stewart in the past. Objective Vitals Vital Signs Date Time Temp Pulse Resp B/P (MAP) Pulse Ox O2 Delivery O2 Flow Rate FiO2 02/20/17 10:00 18 02/20/17 05:00 88 02/20/17 04:00 88 02/20/17 03:36 98.1 90 18 146/97 (113) 98 02/20/17 03:00 84 02/20/17 02:00 94 02/20/17 01:00 84 02/20/17 00:00 90 02/19/17 23:00 100 02/19/17 23:00 97.0 86 18 152/91 (111) 97 02/19/17 22:00 118 02/19/17 21:00 118 02/19/17 20:00 114 02/19/17 20:00 97.0 104 18 146/85 (105) 99 02/19/17 19:00 97 02/19/17 17:00 102 02/19/17 16:47 97.7 97 18 151/85 (107) 100 02/19/17 16:07 109 02/19/17 14:00 98 02/19/17 13:00 96 I/O 02/19/17 02/19/17 02/19/17 02/20/17 02/20/17 02/20/17 07:00 15:00 23:00 07:00 15:00 23:00 Intake Total 1072 ml 480 ml Output Total 400 ml 200 ml 2035 ml Balance -400 ml 872 ml -1555 ml Intake Oral 300 ml 480 ml IV Total 772 ml Output Urine Total 400 ml 200 ml 2035 ml # Voids 1 # Bowel Movements 2 Result Diagram: 02/20/17 0800 02/20/17 0800 Objective Remarks GENERAL: Well-nourished, well-developed pleasant obese CM patient in NAD. SKIN: Warm and dry. HEAD: Normocephalic. EYES: No scleral icterus. No injection or drainage. NECK: Supple, trachea midline. No JVD or lymphadenopathy. CARDIOVASCULAR: Regular rate and rhythm without murmurs, gallops, or rubs. RESPIRATORY: Breath sounds equal and CTS bilaterally. No accessory muscle use. GASTROINTESTINAL: Abdomen soft, non-tender, nondistended. EXTREMITIES: No peripheral edema. NEUROLOGICAL: Awake, alert, and oriented x 3. Non-focal. 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 Rivera is a 71 y/o male with a history of coronary artery disease status post cardiac stenting 5 with last one placed in 2006, hyperlipidemia, hypertension, diabetes mellitus, diabetic neuropathy, chronic kidney disease, and BPH who presented to the emergency room in [place] on 02/18/2017 for evaluation of 2 days of dizziness and left-sided chest discomfort. On initial evaluation, his cardiac enzymes were elevated with CK-MB at 5.8 and troponin I was 0.08. The case was discussed between the patient's visiting nurse Dr. Turner and the ER physician and the decision was made to transfer the patient to [facility] for further evaluation and management. Symptoms consistent with acute coronary syndrome, patient with hx CAD and stents - Troponin max 0.09 - cardiology consulted - patient for [facility] in a.m. - Heparin drip -Cont home Bumex, Plavix, Imdur, Cozaar, metoprolol, Ranexa Hematuria - patient has a history of hematuria with finding of BPH one year ago seen by Dr. Stewart -likely due to BPH now recurrent due to heparin drip - will check stat H&H and monitor - consider consulting Dr. Stewart, versus discussing patient with him, H&H has been stable and this can likely be followed up as an outpatient - resume home Flomax and Finasteride Type 2 Diabetes Mellitus -Patient is on high dose of Levemir 100 units subcutaneous at bedtime which has been resumed Accu-Chek 150 today. -Continue Accu-Cheks before meals and at bedtime with low-dose NovoLog sliding scale coverage - Hypoglycemia protocol - Monitor trends and blood glucose readings and adjust treatments as indicated Chronic kidney disease, stage III - BUN 25, creatinine 1.10, estimated GFR 66 - renal function appears somewhat improved from prior labs - Repeat labs in a.m. and follow trends in renal indices - Avoid nephrotoxins DVT prophylaxis - On heparin drip for now This is a patient of Dr. Osullivan although he has not seen him in a while. I discussed with the [facility] service Dr. Aguilar who will assume the patient's care tomorrow with Dr. Mistry as attending. Problem Qualifiers (1) Chronic kidney disease: Qualified Codes: N18.2 - Chronic kidney disease, stage 2 (mild) Haylee Parmar MD Feb 20, 2017 12:38
[2017-02-20 15:24] LABS: APTT (PATIENT) 45.7 SEC (24.3-30.1)
[2017-02-20] MEDS: HEPARIN-D5W 25,000 U/250 ML 250 ML IV PRN ×2 (16:05→18:00)
[2017-02-20] MEDS: SODIUM CHLOR 0.45% 1000 ML INJ 1,000 ML IV SCH ×2 (20:00)
[2017-02-20] MEDS: INSULIN DETEMIR 100 UNITS/ML VIAL SQ SCH (21:00)
[2017-02-20] MEDS: ATORVASTATIN 80 MG TAB PO SCH (21:04)
--- NOTE | 2017-02-20 23:15 | EKG ---
Date Performed: 02/18/2017 Time Performed: 19:29:22 PTAGE: 71 years EKG: Sinus rhythm LOW QRS VOLTAGE IN PRECORDIAL LEADS ABNORMAL RHYTHM ECG PREVIOUS TRACING : 01/18/2015 06.38 Compared to prior tracing no significant change DOCTOR: Pancho Day Interpretating Date/Time 02/20/2017 23:15:10
[2017-02-21] VITALS (12 sets, daily range): BP systolic 106–139; BP diastolic 45–97; PULSE 76–97; RESP 16–20; TEMP 97.8–98.2; O2SAT 93–95
[2017-02-21] MEDS: NITROGLYCERIN 2% OINT 1 GM PACKET TOPICAL SCH ×2 (00:40→06:06)
[2017-02-21] MEDS: PILOCARPINE HCL 5 MG TAB PO SCH ×2 (06:06→13:20)
[2017-02-21 06:26] LABS: HEMATOCRIT 47.1 % (39.0-51.0); MEAN CELL VOLUME 91.1 FL (80.0-100.0); MEAN CORPUSCULAR HEMOGLOBIN 31.3 PG (27.0-34.0); MEAN CORPUSCULAR HGB CONC 34.3 % (32.0-36.0); PLATELET COUNT 196 TH/MM3 (150-450); RED BLOOD COUNT 5.18 MIL/MM3 (4.50-5.90); RED CELL DISTRIBUTION WIDTH 15.1 % (11.6-17.2); REVIEW FLAG FINAL; WHITE BLOOD COUNT 9.8 TH/MM3 (4.0-11.0)
[2017-02-21 06:42] LABS: APTT (PATIENT) 42.9 SEC (24.3-30.1)
[2017-02-21] MEDS: INSULIN ASPART SUPPLEMENTAL SCALE SQ SCH ×3 (07:44→17:00)
[2017-02-21] MEDS: ISOSORBIDE MONONITRATE 60 MG TAB PO SCH (07:45)
[2017-02-21] MEDS: BUMETANIDE 1 MG TAB PO SCH (07:45)
[2017-02-21] MEDS: PREGABALIN 100 MG CAP PO SCH ×3 (07:45→17:18)
[2017-02-21] MEDS: LOSARTAN 50 MG TAB PO SCH (07:45)
[2017-02-21] MEDS: TAMSULOSIN HCL 0.4 MG CAP PO SCH (07:45)
[2017-02-21] MEDS: CLOPIDOGREL 75 MG TAB PO SCH (07:46)
[2017-02-21] MEDS: METOPROLOL TARTRATE 50 MG TAB PO SCH (07:46)
[2017-02-21] MEDS: PANTOPRAZOLE SOD 20 MG DELAYED RELEASE TAB PO SCH (07:46)
[2017-02-21] MEDS: DULoxetine HCl DR 60 MG CAP PO SCH (07:46)
[2017-02-21] MEDS: DOCUSATE SODIUM 50 MG/SENNA 8.6 MG TAB PO SCH (07:47)
[2017-02-21] MEDS: FINASTERIDE 5 MG TAB PO SCH (07:47)
[2017-02-21] MEDS: ASPIRIN EC 81 MG TABEC PO SCH (07:47)
[2017-02-21] MEDS: FENOFIBRATE 145 MG TAB PO SCH (07:48)
[2017-02-21] MEDS: RANOLAZINE 500 MG EXTENDED RELEASE TAB PO SCH (07:48)
[2017-02-21] MEDS: SODIUM CHLORIDE 0.9% FLUSH 10 ML FLUSH IV FLUSH SCH (07:49)
--- NOTE | 2017-02-21 09:47 | PD.CARD.PN ---
Subjective Subjective Remarks The patient has some sharp cp when he takes a deep breath in. CP onset was acute. He currently has nitro paste. (Beatris Burris) Objective Medications Current Medications Medications (Trade) Dose Ordered Sig/Rafael Route Start Time Stop Time Status Last Admin (NS Flush) 2 ml UNSCH PRN IV FLUSH 02/18/17 23:15 (NS Flush) 2 ml BID IV FLUSH 02/19/17 09:00 02/20/17 21:00 (Zofran Inj) 4 mg Q6H PRN IVP 02/18/17 23:15 (Tylenol) 650 mg Q6H PRN PO 02/18/17 23:15 (Morphine Inj) 2 mg Q3H PRN IV PUSH 02/18/17 23:15 (Laurie-Colace) 1 tab BID PO 02/19/17 09:00 02/20/17 21:04 (Milk Of Magnesia Liq) 30 ml Q12H PRN PO 02/18/17 23:15 (Senokot) 17.2 mg Q12H PRN PO 02/18/17 23:15 (Dulcolax Supp) 10 mg DAILY PRN RECTAL 02/18/17 23:15 (Lactulose Liq) 30 ml DAILY PRN PO 02/18/17 23:15 (Heparin Inj) 5,000 units UNSCH PRN IV 02/19/17 05:15 (Heparin Inj) 2,500 units UNSCH PRN IV 02/19/17 05:15 02/19/17 22:30 Heparin Sodium/ Dextrose 250 ml @ 10 mls/hr TITRATE PRN IV 02/18/17 23:15 02/20/17 18:00 (Lipitor) 80 mg HS PO 02/19/17 21:00 02/20/17 21:04 (Bumetanide) 2 mg BID PO 02/19/17 09:00 02/21/17 07:45 (Plavix) 75 mg DAILY PO 02/19/17 09:00 02/21/17 07:46 (Cymbalta Dr) 60 mg DAILY PO 02/19/17 09:00 02/21/17 07:46 (Proscar) 5 mg DAILY PO 02/19/17 09:00 02/21/17 07:47 (Imdur) 60 mg DAILY PO 02/19/17 09:00 02/21/17 07:45 (Cozaar) 50 mg DAILY PO 02/19/17 09:00 02/21/17 07:45 (Salagen) 5 mg Q8HR PO 02/19/17 14:00 02/21/17 06:06 (Lyrica) 100 mg TID PO 02/19/17 09:00 02/21/17 07:45 (Ranexa) 500 mg BID PO 02/19/17 09:00 02/21/17 07:48 (Flomax) 0.4 mg DAILY PO 02/19/17 09:00 02/21/17 07:45 (Ultram) 50 mg BID PRN PO 02/19/17 06:45 (Tricor) 145 mg DAILY PO 02/19/17 09:00 02/21/17 07:48 (Levemir Inj) 100 units HS SQ 02/19/17 21:00 02/20/17 21:00 (Protonix) 20 mg DAILY PO 02/19/17 09:00 02/21/17 07:46 Patient Own Medication PT OWN MED: Nucynta ER (Tapenta... HS PO 02/19/17 21:00 Future Hold Patient Own Medication PT OWN MED: Nucynta ER (Tapenta... DAILY PO 02/19/17 12:00 Future Hold (D50w (Vial) Inj) 50 ml UNSCH PRN IV PUSH 02/19/17 06:45 (Glucagon Inj) 1 mg UNSCH PRN OTHER 02/19/17 06:45 (NovoLOG SUPPLEMENTAL SCALE) 1 ACHS SLIDING SCALE SQ 02/19/17 08:00 02/20/17 21:00 (Lopressor) 50 mg BID PO 02/19/17 21:00 02/21/17 07:46 (Ecotrin Ec) 81 mg DAILY PO 02/20/17 09:00 02/21/17 07:47 (Nitroglycerin 2% Oint) 1 inch Q6HR TOPICAL 02/19/17 18:00 02/21/17 06:06 Sodium Chloride 1,000 ml @ 50 mls/hr Q20H IV 02/20/17 00:00 02/20/17 20:00 Vital Signs / I&O Vital Signs Date Time Temp Pulse Resp B/P (MAP) Pulse Ox O2 Delivery O2 Flow Rate FiO2 02/21/17 06:29 79 02/21/17 05:00 76 02/21/17 04:38 97.8 80 18 139/97 (111) 95 02/21/17 04:00 76 02/21/17 03:00 77 02/21/17 02:00 84 02/21/17 01:00 84 02/21/17 00:00 94 02/20/17 23:00 98.1 104 18 98/58 (71) 93 02/20/17 23:00 95 02/20/17 22:00 96 02/20/17 21:00 94 02/20/17 20:00 96 02/20/17 20:00 97.6 103 18 130/93 (105) 94 02/20/17 19:00 95 02/20/17 18:00 102 02/20/17 17:00 96 02/20/17 16:00 92 02/20/17 15:28 97.9 94 18 123/80 (94) 96 02/20/17 15:00 88 02/20/17 14:06 18 02/20/17 14:00 96 02/20/17 13:00 86 02/20/17 12:00 90 02/20/17 11:23 97.8 84 19 136/78 (97) 96 02/20/17 11:00 88 02/20/17 10:00 100 I/O 02/20/17 02/20/17 02/20/17 02/21/17 02/21/17 02/21/17 07:00 15:00 23:00 07:00 15:00 23:00 Intake Total 480 ml 810 ml 400 ml Output Total 2035 ml 1100 ml 2485 ml Balance -1555 ml -290 ml -2085 ml Intake Oral 480 ml 560 ml 400 ml IV Total 250 ml Output Urine Total 2035 ml 1100 ml 2485 ml # Bowel Movements 2 Physical Exam GENERAL: Obese male, NAD SKIN: Warm and dry. HEAD: Normocephalic. EYES: No scleral icterus. No injection or drainage. NECK: Supple, trachea midline. CARDIOVASCULAR: Regular rate and rhythm without murmurs, gallops, or rubs. RESPIRATORY: Breath sounds equal bilaterally. No accessory muscle use. GASTROINTESTINAL: Abdomen soft, non-tender, nondistended. MUSCULOSKELETAL: No cyanosis BACK: Nontender without obvious deformity. Laboratory Laboratory Tests Test 02/20/17 15:00 02/21/17 05:38 Activated Partial Thromboplast Time 45.7 SEC 42.9 SEC White Blood Count 9.8 TH/MM3 Red Blood Count 5.18 MIL/MM3 Hemoglobin 16.2 GM/DL Hematocrit 47.1 % Mean Corpuscular Volume 91.1 FL Mean Corpuscular Hemoglobin 31.3 PG Mean Corpuscular Hemoglobin Concent 34.3 % Red Cell Distribution Width 15.1 % Platelet Count 196 TH/MM3 Mean Platelet Volume 9.6 FL Imaging Last 72 hours Impressions Chest X-Ray 02/18/172055 Signed Impressions: Service Date/Time: Saturday, February 18, 2017 21:28 - CONCLUSION: 1. Mild basilar atelectasis. Mild cardiomegaly. Loop recorder left hemithorax. Keagan Peralta MD (Beatris Burris) Assessment and Plan Assessment and Plan 1. Recurrent angina/chest pain. Seems pleuritic. left US negative. 2. History of non-surgical ASHD. Last cardiac cath 2013 at [facility]. 3. Diabetes with neuropathy 4. Dyslipidemia. 5. Obesity. 6. Chronic renal failure, stage II mild 7. Chronic back pain, lumbar radiculopathy PLAN: Had a long discussion with the patient and . The patient has had multiple cardiac caths. His last cardiac cath 2013 revealed non-surgical ASHD with recommendation for aggressive risk factor modification. At this point, we exclude PE. If CTA is negative we will complete complete outpatient ischemic workup. Remove nitro paste, increase Ranexa and stop Heparin. The patient was seen and evaluated by Dr Turner who completed face to face encounter, physical exam and participated in evaluation and management. (Beatris Burris) Assessment and Plan The exam, history, and the medical decision-making described in the above note were completed with the assistance of the mid-level provider. I reviewed and agree with the findings presented. I attest that I had a [id number] encounter with the patient on the same day, and personally performed and documented my assessment and findings in the medical record. Will continue medical w/u as o/p. Pt and agreeable and would like to hold off cath. (Jessica Turner MD) Beatris Burris Feb 21, 2017 09:47 Jessica Turner MD Feb 22, 2017 14:41
--- NOTE | 2017-02-21 10:24 | HHI.FPPN ---
Subjective Remarks Patient seen and examined this morning. Temperature 97.8, pulse 80, respiratory rate 18, blood pressure 139/97, pulse ox 95 on room air. Patient reports having some chest pain when he takes a deep breath. Shortness of breath worsens with activity however he feels fine with lying in bed. Plan to exclude PE, CTA to be completed. If the CTA is negative patient will complete outpatient ischemic workup. He agrees to the plan of care (Kvng Cormier MD, R3) Objective Vitals Vital Signs Date Time Temp Pulse Resp B/P (MAP) Pulse Ox O2 Delivery O2 Flow Rate FiO2 02/21/17 10:03 20 02/21/17 06:29 79 02/21/17 05:00 76 02/21/17 04:38 97.8 80 18 139/97 (111) 95 02/21/17 04:00 76 02/21/17 03:00 77 02/21/17 02:00 84 02/21/17 01:00 84 02/21/17 00:00 94 02/20/17 23:00 98.1 104 18 98/58 (71) 93 02/20/17 23:00 95 02/20/17 22:00 96 02/20/17 21:00 94 02/20/17 20:00 96 02/20/17 20:00 97.6 103 18 130/93 (105) 94 02/20/17 19:00 95 02/20/17 18:00 102 02/20/17 17:00 96 02/20/17 16:00 92 02/20/17 15:28 97.9 94 18 123/80 (94) 96 02/20/17 15:00 88 02/20/17 14:00 96 02/20/17 13:00 86 02/20/17 12:00 90 02/20/17 11:23 97.8 84 19 136/78 (97) 96 02/20/17 11:00 88 I/O 02/20/17 02/20/17 02/20/17 02/21/17 02/21/17 02/21/17 07:00 15:00 23:00 07:00 15:00 23:00 Intake Total 480 ml 810 ml 400 ml Output Total 2035 ml 1100 ml 2485 ml Balance -1555 ml -290 ml -2085 ml Intake Oral 480 ml 560 ml 400 ml IV Total 250 ml Output Urine Total 2035 ml 1100 ml 2485 ml # Bowel Movements 2 (Kvng Cormier MD, R3) Result Diagram: 02/21/17 0538 02/20/17 0800 Imaging Last Impressions Chest X-Ray 02/18/172055 Signed Impressions: Service Date/Time: Saturday, February 18, 2017 21:28 - CONCLUSION: 1. Mild basilar atelectasis. Mild cardiomegaly. Loop recorder left hemithorax. Keagan Peralta MD Lower Extremity Ultrasound 02/18/17 0000 Signed Impressions: Service Date/Time: Saturday, February 18, 2017 22:56 - CONCLUSION: No DVT is identified in the left lower extremity. Ashwin Stanley MD Objective Remarks GEN: Well-developed, well-nourished patient obese male. No acute distress. CV: Regular rate and rhythm without obvious murmurs LUNGS: Clear to auscultation bilaterally. Normal respiratory effort. No wheezes , rales, rhonchi. GI: Soft, nontender, nondistended. No palpable masses. Bowel sounds WNL. EXT: No edema. NEURO/PSYCH: Afocal. Awake, alert, and oriented x3. Appropriate insight and judgment. Medications and IVs Current Medications Medications (Trade) Dose Ordered Sig/Rafael Route Start Time Stop Time Status Last Admin (NS Flush) 2 ml UNSCH PRN IV FLUSH 02/18/17 23:15 (NS Flush) 2 ml BID IV FLUSH 02/19/17 09:00 02/20/17 21:00 (Zofran Inj) 4 mg Q6H PRN IVP 02/18/17 23:15 (Tylenol) 650 mg Q6H PRN PO 02/18/17 23:15 (Morphine Inj) 2 mg Q3H PRN IV PUSH 02/18/17 23:15 (Laurie-Colace) 1 tab BID PO 02/19/17 09:00 02/20/17 21:04 (Milk Of Magnesia Liq) 30 ml Q12H PRN PO 02/18/17 23:15 (Senokot) 17.2 mg Q12H PRN PO 02/18/17 23:15 (Dulcolax Supp) 10 mg DAILY PRN RECTAL 02/18/17 23:15 (Lactulose Liq) 30 ml DAILY PRN PO 02/18/17 23:15 (Lipitor) 80 mg HS PO 02/19/17 21:00 02/20/17 21:04 (Bumetanide) 2 mg BID PO 02/19/17 09:00 02/21/17 07:45 (Plavix) 75 mg DAILY PO 02/19/17 09:00 02/21/17 07:46 (Cymbalta Dr) 60 mg DAILY PO 02/19/17 09:00 02/21/17 07:46 (Proscar) 5 mg DAILY PO 02/19/17 09:00 02/21/17 07:47 (Imdur) 60 mg DAILY PO 02/19/17 09:00 02/21/17 07:45 (Cozaar) 50 mg DAILY PO 02/19/17 09:00 02/21/17 07:45 (Salagen) 5 mg Q8HR PO 02/19/17 14:00 02/21/17 06:06 (Lyrica) 100 mg TID PO 02/19/17 09:00 02/21/17 07:45 (Flomax) 0.4 mg DAILY PO 02/19/17 09:00 02/21/17 07:45 (Ultram) 50 mg BID PRN PO 02/19/17 06:45 (Tricor) 145 mg DAILY PO 02/19/17 09:00 02/21/17 07:48 (Levemir Inj) 100 units HS SQ 02/19/17 21:00 02/20/17 21:00 (Protonix) 20 mg DAILY PO 02/19/17 09:00 02/21/17 07:46 Patient Own Medication PT OWN MED: Nucynta ER (Tapenta... HS PO 02/19/17 21:00 Future Hold Patient Own Medication PT OWN MED: Nucynta ER (Tapenta... DAILY PO 02/19/17 12:00 Future Hold (D50w (Vial) Inj) 50 ml UNSCH PRN IV PUSH 02/19/17 06:45 (Glucagon Inj) 1 mg UNSCH PRN OTHER 02/19/17 06:45 (NovoLOG SUPPLEMENTAL SCALE) 1 ACHS SLIDING SCALE SQ 02/19/17 08:00 02/20/17 21:00 (Lopressor) 50 mg BID PO 02/19/17 21:00 02/21/17 07:46 (Ecotrin Ec) 81 mg DAILY PO 02/20/17 09:00 02/21/17 07:47 Sodium Chloride 1,000 ml @ 50 mls/hr Q20H IV 02/20/17 00:00 02/20/17 20:00 (Ranexa) 1,000 mg BID PO 02/21/17 21:00 (Kvng Cormier MD, R3) A/P Assessment and Plan Mr. Rivera is a 71 y/o male with a history of coronary artery disease status post cardiac stenting 5 with last one placed in 2006, hyperlipidemia, hypertension, diabetes mellitus, diabetic neuropathy, chronic kidney disease, and BPH who presented to the emergency room in [place] on 02/18/2017 for evaluation of 2 days of dizziness and left-sided chest discomfort. Admitted to [place] for chest pain workup and further evaluation. Symptoms consistent with acute coronary syndrome - Troponin I: 0.08, 0.09, 0.09 - CK-MB: 5.8 - cardiology consulted - appreciate Dr. Turner's assistance - Discontinue heparin drip - Resume home Bumex, Plavix, Imdur, Cozaar, metoprolol, Ranexa - CTA pending to rule out PE Hematuria - uncertain etiology - patient has a history of hematuria with finding of BPH - H&H is stable - To be followed by PCP with recommendations for urology referral - resume home Flomax and Finasteride Type 2 Diabetes Mellitus - Resume home basal insulin - Accu-Cheks before meals and at bedtime with low-dose NovoLog sliding scale coverage - Hypoglycemia protocol - Monitor trends and blood glucose readings and adjust treatments as indicated Chronic kidney disease, stage III - BUN 25, creatinine 1.10, estimated GFR 66 - renal function appears somewhat improved from prior labs - Repeat labs in a.m. and follow trends in renal indices - Avoid nephrotoxins DVT prophylaxis - SCDs at this time for possible procedure Discharge Planning Pending results of CTA. Workup to be completed as outpatient if PE is ruled out (Kvng Cormier MD, R3) Attending Attestation Patient seen and examined. Case reviewed and discussed with the resident team. Agree with plan of care as discussed with me and documented in the resident note. he has been pain free since he came in the hospital. 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
[2017-02-21] MEDS: SODIUM CHLOR 0.45% 1000 ML INJ 1,000 ML IV SCH (16:00)
[2017-02-21] MEDS ORDERED: IOHEXOL 350 MG/ML 10 ML VIAL (for RAD DIAG) IVCONTRAST ONE ×2 (16:47→17:05)
--- NOTE | 2017-02-21 17:29 | RADRPT ---
EXAM DATE/TIME: 02/21/2017 16:47 [facility] COMPARISON: No previous studies available for comparison. INDICATIONS : Chest pain on inspiratoin. IV CONTRAST: 76 cc Omnipaque 350 (iohexol) IV RADIATION DOSE: 23.19 CTDIvol (mGy) MEDICAL HISTORY : Cardiovascular disease. Hypertension. Renal failure, chronic. SURGICAL HISTORY : None. ENCOUNTER: Initial ACUITY: 1 day PAIN SCALE: 2/10 LOCATION: chest TECHNIQUE: Volumetric scanning of the chest was performed using a pulmonary embolism protocol MIP images were re constructed. Using automated exposure control and adjustment of the mA and/or kV according to patien t size, radiation dose was kept as low as reasonably achievable to obtain optimal diagnostic quality images. DICOM format image data is available electronically for review and comparison. Follow-up recommendations for detected pulmonary nodules are based at a minimum on nodule size and pa tient risk factors according to Fleischner Society Guidelines. FINDINGS: PULMONARY ARTERIES: No filling defects are seen in the pulmonary arteries through the segmental level. LUNGS: There is respiratory motion artifact bilaterally. The groundglass opacity in the lower lung zones cou ld be related to respiratory motion artifact or could represent a true lung abnormality. No pneumotho rax is present. PLEURAE: There is no pleural thickening or pleural effusion. MEDIASTINUM: Heart and great vessels demonstrate no acute finding. There is coronary artery calcification and athe rosclerotic disease of aorta. No lymphadenopathy is present. MUSCULOSKELETAL: There are degenerative changes of the thoracic spine. MISCELLANEOUS: The visualized upper abdominal organs demonstrate no acute abnormality. CONCLUSION: 1. No PE is identified. 2. Groundglass opacity at the lung bases which could be secondary to respiratory motion artifact but could represent a true lung abnormality such as edema. Ashwin Stanley MD on February 21, 2017 at 17:23 Board Certified Radiologist. This report was verified electronically.
[2017-02-21] MEDS ORDERED: RANO500 PO (18:14)
--- NOTE | 2017-02-21 18:18 | HHI.DCPOC ---
Discharge Care Plan Diagnosis: (1) Type II diabetes mellitus with peripheral circulatory disorder, uncontrolled (2) Ischemic heart disease (3) Acute on chronic combined systolic and diastolic CHF (congestive heart failure) (4) Acute coronary syndrome (5) Hematuria (6) Chronic kidney disease Goals to Promote Your Health * To prevent worsening of your condition and complications * To maintain your health at the optimal level Directions to Meet Your Goals Take your medications as prescribed Follow your dietary instruction Follow activity as directed Keep your appointments as scheduled Take your immunizations and boosters as scheduled If your symptoms worsen call your PCP, if no PCP go to Urgent Care Center or Emergency Room Smoking is Dangerous to Your Health. Avoid second hand smoke Call the 24-hour hour crisis hotline for domestic abuse at Kvng Cormier MD, R3 Feb 21, 2017 18:18
--- NOTE | 2017-02-21 18:19 | HHI.DS ---
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 Diagnosis: Secondary ICD Codes: E11.43 - Type 2 diabetes mellitus with diabetic autonomic (poly) neuropathy Status: Chronic (4) Chronic kidney disease Diagnosis: Secondary ICD Codes: N18.9 - Chronic kidney disease, unspecified (5) Hematuria Diagnosis: Secondary ICD Codes: R31.9 - Hematuria, unspecified Status: Acute CBC/BMP: 02/21/17 0538 02/20/17 0800 Significant Findings Laboratory Tests Test 02/18/17 21:55 02/19/17 05:02 02/19/17 05:30 02/19/17 06:35 Neutrophils (%) (Auto) 79.0 % (16.0-70.0) Blood Urea Nitrogen 25 MG/DL (7-18) Random Glucose 199 MG/DL (74-106) Albumin 3.3 GM/DL (3.4-5.0) Sodium Level 135 MEQ/L (136-145) Estimat Glomerular Filtration Rate 66 ML/MIN (>89) Creatine Kinase MB 5.8 NG/ML (0.5-3.6) Troponin I 0.08 NG/ML (0.02-0.05) 0.09 NG/ML (0.02-0.05) Activated Partial Thromboplast Time 42.8 SEC (24.3-30.1) Urine Color LIGHT-RED (YELLW/STRAW) Urine Protein 30 mg/dL (NEG-TRACE) Urine Occult Blood LARGE (NEG) Urine Leukocyte Esterase SMALL (NEG) Urine Mucus FEW /lpf (OCC) Test 02/19/17 12:09 02/19/17 14:10 02/19/17 20:35 02/19/17 22:14 Monocytes (%) (Auto) 9.3 % (0.0-8.0) Blood Urea Nitrogen 25 MG/DL (7-18) Random Glucose 163 MG/DL (74-106) Potassium Level 3.4 MEQ/L (3.5-5.1) Estimat Glomerular Filtration Rate 63 ML/MIN (>89) Troponin I 0.09 NG/ML (0.02-0.05) Activated Partial Thromboplast Time 37.8 SEC (24.3-30.1) 35.7 SEC (24.3-30.1) Urine Color LIGHT-RED (YELLW/STRAW) Urine Protein 30 mg/dL (NEG-TRACE) Urine Occult Blood LARGE (NEG) Urine Leukocyte Esterase SMALL (NEG) Urine WBC 8 /hpf (0-5) Test 02/20/17 06:30 02/20/17 08:00 02/20/17 15:00 02/21/17 05:38 Activated Partial Thromboplast Time 48.7 SEC (24.3-30.1) 45.7 SEC (24.3-30.1) 42.9 SEC (24.3-30.1) Monocytes (%) (Auto) 10.1 % (0.0-8.0) Blood Urea Nitrogen 27 MG/DL (7-18) Random Glucose 140 MG/DL (74-106) Chloride Level 95 MEQ/L (98-107) Carbon Dioxide Level 34.6 MEQ/L (21.0-32.0) Estimat Glomerular Filtration Rate 62 ML/MIN (>89) HDL Cholesterol 88.2 MG/DL (40.0-60.0) PE at Discharge GEN: Well-developed, well-nourished patient obese male. No acute distress. CV: Regular rate and rhythm without obvious murmurs LUNGS: Clear to auscultation bilaterally. Normal respiratory effort. No wheezes , rales, rhonchi. GI: Soft, nontender, nondistended. No palpable masses. Bowel sounds WNL. EXT: No edema. NEURO/PSYCH: Afocal. Awake, alert, and oriented x3. Appropriate insight and judgment. Hospital Course Patient was admitted on 02/18/17 for chest pain rule out. He was evaluated by cardiology who determined not to perform a cardiac catheterization. PE was ruled out with CTA. And he will continue coronary artery disease workup as an outpatient to optimize his treatments. He is discharged on 02/21/17 and stable at that time. Pt Condition on Discharge: Stable Discharge Instructions DIET: Follow Instructions for: Heart Healthy Diet Activities you can perform: Regular-No Restrictions Follow up Referrals: Cardiology - 2-3 Days with Jessica Turner MD PCP Follow-up - 1 Week with Marky Osullivan MD New Medications: Ranolazine ER 12 HR (Ranexa ER 12 HR) 500 Mg Tab 1000 MG PO BID, #60 TAB Continued Medications: Aspirin (Aspirin) 81 Mg Tabdr 81 MG PO BID, #90 TAB Atorvastatin (Atorvastatin) 80 Mg Tab 80 MG PO HS for Cholesterol Management, #90 TAB 0 Refills Bumetanide (Bumetanide) 2 Mg Tab 2 MG PO BID, #180 TAB 0 Refills Cholecalciferol (Vitamin D) 5,000 Unit Tab Cholecalciferol (Vitamin D-3) 1,000 Unit Cap 5000 UNITS PO DAILY Choline Fenofibrate DR (Fenofibric Acid Dr) 135 mg Capdr 135 MG PO DAILY, #30 CAP 0 Refills Clopidogrel (Plavix) 75 Mg Tab 75 MG PO DAILY for Blood Clot Prevention, #90 TAB [address] (Duloxetine DR) 60 Mg Capdr 60 MG PO DAILY, #30 CAP 0 Refills Finasteride (Finasteride) 5 Mg Tab 5 MG PO DAILY for Manage Prostate Problems, #90 TAB 3 Refills Do not crush. Fish Oil-Cholecalciferol (Fish Oil + D3) 1,200-1,000 Mg-Unit Cap 1 CAP PO DAILY for Nutritional Supplement, #30 CAP 0 Refills Insulin Glargine Inj (Toujeo Solostar Pen Inj) 300 Unit/Ml Pen 100 UNITS SQ HS for Blood Sugar Management, PEN 0 Refills Insulin Lispro (Human) Inj (Humalog Inj) 1,000 Unit/10 Ml Vial 1-9 UNITS SQ ACHS for Blood Sugar Management, #1 VIAL 0 Refills Max dose at bedtime:( )units; sugars< 70,(0)units; sugars 150-199,(1)unit; sugars 200-249,(3)units; sugars 250-299,(5)units; sugars 300-349,(7)units; sugars more than 349,(9)units. Isosorbide Mononitrate ER (Isosorbide Mononitrate ER) 60 Mg Tab 60 MG PO DAILY for Prevent Chest Pain, #90 TAB 0 Refills Linaclotide (Linzess) 145 Mcg Cap 145 MCG PO DAILY, #90 CAP 0 Refills Losartan (Losartan) 50 Mg Tab 50 MG PO DAILY for Blood Pressure Management, #30 TAB 0 Refills Metoprolol Succinate ER 24 HR (Toprol XL) 25 Mg Tab 50 MG PO HS, #180 TAB 0 Refills Milnacipran (Savella) 50 Mg Tab 50 MG PO BID for Fibromyalgia, #180 TAB 0 Refills Nitroglycerin SL (Nitroglycerin SL) 0.4 Mg Subl 0.4 MG SL DIRECTED PRN for CHEST PAIN, #100 TAB.SL 0 Refills ONE TABLET UNDER THE TONGUE NEEDED FOR CHEST PAIN, MAY REPEAT EVERY FIVE MINUTES FOR A TOTAL OF 3 DOSES OR CALL 911 IF NO RELIEF Omeprazole (Omeprazole) 20 Mg Tab 20 MG PO DAILY, #30 TAB 0 Refills Pilocarpine (Pilocarpine) 5 Mg Tab 5 MG PO Q8HR for Dry Mouth, #90 TAB 0 Refills Pregabalin (Lyrica) 100 Mg Cap 100 MG PO TID, #90 CAP 0 Refills Tamsulosin (Flomax) 0.4 Mg Cap 0.4 MG PO DAILY for Manage Prostate Problems, #90 CAP 3 Refills Tapentadol (Nucynta) 50 Mg Tab 50 MG PO BID PRN for PAIN, #30 TAB 0 Refills Tapentadol ER (Nucynta ER) 50 Mg Sandip 50 MG PO HS for Pain Management, TAB 0 Refills Tapentadol ER (Nucynta ER) 100 Mg Sandip 100 MG PO DAILY for Pain Management, TAB 0 Refills Tapentadol (Nucynta) 50 Mg Tab 50 MG PO 1100.1500 for PAIN, TAB 0 Refills Tramadol (Tramadol) 50 Mg Tab 50 MG PO BID PRN for PAIN, #180 TAB 0 Refills Tramadol ER 24 HR (Tramadol ER 24 HR) 100 Mg Sandip 100 MG PO DAILY for Pain Management, #30 TAB 0 Refills Discontinued Medications: Aspirin DR (Aspir-81) 81 Mg Tabdr 81 MG PO BID Ranolazine ER 12 HR (Ranexa ER 12 HR) 500 Mg Tab 500 MG PO BID for Chest Pain, #60 TAB 0 Refills Kvng Cormier MD, R3 Feb 21, 2017 18:19
[2017-02-21] MEDS ORDERED: RANOLAZINE 500 MG EXTENDED RELEASE TAB PO SCH (21:00)
[2017-02-22] MEDS ORDERED: IOHEXOL 350 MG/ML 10 ML VIAL (for RAD DIAG) IVCONTRAST ONE (09:55)
== END 2017-02-21 19:06 | disposition home or self-care (01) | DRG 303 ==
LOC: PHED 19:21 → PHEDA 23:18 → HCIS 02-19 04:20
PROVIDERS: ADMIT Family Medicine; ATTEND Family Medicine
DX: I25.2 Old myocardial infarction (principal); I13.0 Hypertensive heart and chronic kidney disease with heart failure and stage 1 through stage 4 chronic kidney disease, or unspecified chronic kidney disease; E11.21 Type 2 diabetes mellitus with diabetic nephropathy; I50.22 Chronic systolic (congestive) heart failure; I25.110 Atherosclerotic heart disease of native coronary artery with unstable angina pectoris; Z68.41 Body mass index [BMI] 40.0-44.9, adult; E11.42 Type 2 diabetes mellitus with diabetic polyneuropathy; E88.81 Metabolic syndrome and other insulin resistance; H40.9 Unspecified glaucoma; E66.9 Obesity, unspecified; E78.5 Hyperlipidemia, unspecified; M54.16 Radiculopathy, lumbar region; N40.0 Benign prostatic hyperplasia without lower urinary tract symptoms; N18.3 Chronic kidney disease, stage 3 (moderate); R31.9 Hematuria, unspecified; E11.22 Type 2 diabetes mellitus with diabetic chronic kidney disease; E11.43 Type 2 diabetes mellitus with diabetic autonomic (poly)neuropathy; E11.51 Type 2 diabetes mellitus with diabetic peripheral angiopathy without gangrene; M79.7 Fibromyalgia; Z79.4 Long term (current) use of insulin; Z95.5 Presence of coronary angioplasty implant and graft
CPT/HCPCS: 71010; 71275; 76937; 80048; 80053; 80061; 81001; 82550; 82552; 82948; 83690; 83735; 84484; 85014; 85018; 85025; 85027; 85610; 85730; 86141; 93005; 93971; J1644; J1815; J7030; Q9967

== ENCOUNTER 2017-03-01 13:36 | Emergency (ER) | payer MEDICARE ==
[~2017-03-01] VITALS: Ht 172.7 cm; Wt 78.0 kg
[~2017-03-01 13:36] MED LIST changes: +CHOL1CAP2 PO; +D31000CA3 PO; +DULO1CAP3 PO; +PILO5TAB3 PO
[2017-03-01 13:45] VITALS: BP 126/65; PULSE 86; RESP 18; TEMP 98; O2SAT 98
[2017-03-01 14:00] VITALS: BP 92/51; RESP 18
[2017-03-01] MEDS ORDERED: ONDANSETRON HCL 4 MG/2 ML VIAL IVP ONE (14:00)
[2017-03-01] MEDS ORDERED: MECLIZINE HCL 25 MG TAB PO ONE (14:00)
[2017-03-01] MEDS ORDERED: SODIUM CHLORIDE 0.9% FLUSH 10 ML FLUSH IVF PRN (14:00)
[2017-03-01 16:02] VITALS: BP 150/70; PULSE 82; RESP 16; TEMP 98.4; O2SAT 98
--- NOTE | 2017-03-01 16:06 | RADRPT ---
EXAM DATE/TIME: 03/01/2017 15:26 [place] COMPARISON: No previous studies available for comparison. INDICATIONS : Dizziness. Fell and hit back of head. RADIATION DOSE: 50.72 CTDIvol (mGy) MEDICAL HISTORY : Cardiovascular disease. Renal failure, chronic. Diabetes mellitus type 2.Hypertension. SURGICAL HISTORY : None. ENCOUNTER: Initial ACUITY: 1 day PAIN SCALE: 5/10 LOCATION: cranial TECHNIQUE: Multiple contiguous axial images were obtained of the head. Using automated exposure control and adj ustment of the mA and/or kV according to patient size, radiation dose was kept as low as reasonably a chievable to obtain optimal diagnostic quality images. DICOM format image data is available electro nically for review and comparison. FINDINGS: CEREBRUM: [id number] diffuse cerebral atrophy. The ventricles are normal for degree of atrophy. No evide nce of midline shift, mass lesion, hemorrhage or acute infarction. No extra-axial fluid collections are seen. POSTERIOR FOSSA: The cerebellum and brainstem are intact. The 4th ventricle is midline. The cerebellopontine angle i s unremarkable. EXTRACRANIAL: The visualized portion of the orbits is intact. SKULL: The calvaria is intact. No evidence of skull fracture. CONCLUSION: 1. Senescent changes without acute intracranial abnormality. Bill Del Real MD on March 01, 2017 at 16:02 Board Certified Radiologist. This report was verified electronically.
[2017-03-01 16:13] VITALS: BP 164/85; PULSE 85; RESP 18; O2SAT 94
[2017-03-01 16:19] LABS: BASOPHIL % 0.4 % (0.0-2.0); EOSINOPHIL # 0.2 TH/MM3 (0-0.4); EOSINOPHIL % 1.8 % (0.0-4.0); HEMATOCRIT 40.9 % (39.0-51.0); HEMOGLOBIN 13.9 GM/DL (13.0-17.0); LYMPH % 12.5 % (9.0-44.0); LYMPHOCYTE # 1.3 TH/MM3 (1.0-4.8); MEAN CELL VOLUME 90.6 FL (80.0-100.0); MEAN CORPUSCULAR HEMOGLOBIN 30.8 PG (27.0-34.0); MEAN CORPUSCULAR HGB CONC 34.1 % (32.0-36.0); MEAN PLATELET VOLUME 9.7 FL (7.0-11.0); MONO % 8.8 % (0.0-8.0); MONOCYTE # 0.9 TH/MM3 (0-0.9); NEUT % 76.5 % (16.0-70.0); PLATELET COUNT 161 TH/MM3 (150-450); RED BLOOD COUNT 4.52 MIL/MM3 (4.50-5.90); RED CELL DISTRIBUTION WIDTH 14.8 % (11.6-17.2); WHITE BLOOD COUNT 10.5 TH/MM3 (4.0-11.0)
--- NOTE | 2017-03-01 16:33 | PD ---
HPI Chief Complaint: Syncope/Near-Syncope Time Seen by Provider: 13:48 Travel History International Travel<30 days: No Contact w/Intl Traveler<30days: No Traveled to known affect area: No History of Present Illness HPI 71-year-old male with history of chronic vertigo, dizziness, and weakness. Patient states episode of vertigo this morning while ambulating in his kitchen. Patient fell bumping his right posterior head. He is brought in by angle excessive patient had secondary weakness in both arms. Patient denies headache, loss of consciousness, or neck pain. Patient denies chest pain, abdominal pain, nausea, vomiting, or other symptoms. Patient currently does not take medications for vertigo. He is allergic to trimethobenzamide. 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) Blood Disorders: Yes (BRUISING WHERE INSULIN GIVEN, BLOOD IN URINE, FT BLEEDING & NOT ABLE TO STO) Heart Rhythm Problems: No Cancer: No Cardiovascular Problems: Yes High Cholesterol: Yes Chest Pain: Yes Congestive Heart Failure: Yes COPD: No Cerebrovascular Accident: No Coronary Artery Disease: Yes Diabetes: Yes Patient Takes Glucophage: No Diminished Hearing: No Endocrine: Yes GERD: No Glaucoma: Yes (POSITIVE FOR HARDIK CONE DISEASE) Genitourinary: No Headaches: No Hepatitis: No Hiatal Hernia: No Hypertension: Yes Immune Disorder: Yes Implanted Vascular Access Dvce: Yes Kidney Stones: No Musculoskeletal: Yes Neurologic: Yes (NEUROPATHY) Psychiatric: No Reproductive: No Respiratory: No Migraines: No Myocardial Infarction: Yes (1995) Renal Failure: Yes Seizures: No Sleep Apnea: No Thyroid Disease: No Ulcer: No PNEUMOCCOCAL Vaccine (Year): 1 Past Surgical History Abdominal Surgery: Yes (right inquinal hernia repair) Appendectomy: No Body Medical Devices: LOOP RECORDER, SPINAL CORD STIMULATOR Cholecystectomy: No Coronary Stent: Yes (X5. LAST 2006.) Ear Surgery: No Endocrine Surgery: No Eye Surgery: No Genitourinary Surgery: No Gynecologic Surgery: No Neurologic Surgery: Yes (SPINAL STIMULATOR IMPLANT) Oral Surgery: No Pacemaker: No Thoracic Surgery: No Other Surgery: Yes Social History Alcohol Use: Yes (OCC) Tobacco Use: No Substance Use: No Allergies-Medications (Allergen,Severity, Reaction): Coded Allergies: trimethobenzamide (Verified Allergy, Severe, anaphylactic, 02/18/17) Reported Meds & Prescriptions Reported Meds & Active Scripts Active Ranexa ER 12 HR (Ranolazine) 500 Mg Tab 1,000 Mg PO BID Flomax (Tamsulosin HCl) 0.4 Mg Cap 0.4 Mg PO DAILY Finasteride 5 Mg Tab 5 Mg PO DAILY Do not crush. Reported Vitamin D-3 (Cholecalciferol) 1,000 Unit Cap 5,000 Units PO DAILY Fenofibric Acid Dr (Choline Fenofibrate DR) 135 mg Capdr 135 Mg PO DAILY Duloxetine DR (Duloxetine HCl) 60 Mg Capdr 60 Mg PO DAILY Pilocarpine 5 Mg Tab 5 Mg PO Q8HR [place] Solostar Pen Inj (Insulin Glargine) 300 Unit/Ml Pen 100 Units SQ HS Humalog Inj (Insulin Human Lispro) 1,000 Unit/10 Ml Vial 1-9 Units SQ ACHS Max dose at bedtime:( )units; sugars< 70,(0)units; sugars 150-199,(1)unit; sugars 200-249,(3)units; sugars 250-299,(5)units; sugars 300-349,(7)units; sugars more than 349,(9)units. Nucynta (Tapentadol) 50 Mg Tab 50 Mg PO 1100.1500 Nucynta ER (Tapentadol) 100 Mg Sandip 100 Mg PO DAILY Nucynta ER (Tapentadol) 50 Mg Sandip 50 Mg PO HS Tramadol ER 24 HR (Tramadol HCl) 100 Mg Sandip 100 Mg PO DAILY Omeprazole 20 Mg Tab 20 Mg PO DAILY Lyrica (Pregabalin) 100 Mg Cap 100 Mg PO TID Losartan (Losartan Potassium) 50 Mg Tab 50 Mg PO DAILY Fish Oil + D3 (Fish Oil-Cholecalciferol) 1,200-1,000 Mg-Unit Cap 1 Cap PO DAILY Isosorbide Mononitrate ER (Isosorbide Mononitrate) 60 Mg Tab 60 Mg PO DAILY Plavix (Clopidogrel Bisulfate) 75 Mg Tab 75 Mg PO DAILY Atorvastatin (Atorvastatin Calcium) 80 Mg Tab 80 Mg PO HS Aspirin 81 Mg Tabdr 81 Mg PO BID Vitamin D (Cholecalciferol) 5,000 Unit Tab Tramadol (Tramadol HCl) 50 Mg Tab 50 Mg PO BID PRN Toprol XL (Metoprolol Succinate) 25 Mg Tab 50 Mg PO HS Nucynta (Tapentadol) 50 Mg Tab 50 Mg PO BID PRN Savella (Milnacipran) 50 Mg Tab 50 Mg PO BID Nitroglycerin SL (Nitroglycerin) 0.4 Mg Subl 0.4 Mg SL DIRECTED PRN ONE TABLET UNDER THE TONGUE NEEDED FOR CHEST PAIN, MAY REPEAT EVERY FIVE MINUTES FOR A TOTAL OF 3 DOSES OR CALL 911 IF NO RELIEF Linzess (Linaclotide) 145 Mcg Cap 145 Mcg PO DAILY Bumetanide 2 Mg Tab 2 Mg PO BID Review of Systems Except as stated in HPI: all other systems reviewed are Neg General / Constitutional: No: Fever Eyes: No: Diploplia, Blurred Vision, Photophobia, Blind Spots, Visual changes, Blindness HENT: Positive: Vertigo, No: Headaches, Lightheadedness, Sore Throat, Rhinitis , Rhinorrhea, Congestion, Nosebleed, Neck Stiffness, Neck Pain, Gingival Bleeding, Dental Difficulties, Ear Discharge Cardiovascular: No: Chest Pain or Discomfort Respiratory: No: Shortness of Breath Gastrointestinal: No: Nausea, Vomiting, Diarrhea, Abdominal Pain Genitourinary: No: Dysuria Musculoskeletal: No: Pain Skin: No Rash Neurologic: No: Weakness Psychiatric: No: Depression Endocrine: No: Polydipsia Hematologic/Lymphatic: No: Easy Bruising Physical Exam Narrative GENERAL: Patient is alert and oriented in no obvious distress. SKIN: Warm and dry. Normal color. Normal turgor. No obvious acute trauma. HEAD: The patient has a small bump to the right posterior scalp which is mildly tender. Normocephalic. No open wounds or abrasions. EYES: Pupils equal and round. No scleral icterus. No injection or drainage. Patient has moderate left going rotary nystagmus with ocular motion. Patient is symptomatic with turning head to the left and right. ENT: No nasal bleeding or discharge. Mucous membranes pink and moist. Pharynx is clear. Airway is patent NECK: Trachea midline. No bony tenderness or step-off. Range of motion is full and nontender. No bruits appreciated. CARDIOVASCULAR: Regular rate and rhythm. No murmurs gallops or rubs. RESPIRATORY: No accessory muscle use. Clear to auscultation. Breath sounds equal bilaterally. GASTROINTESTINAL: Abdomen soft, non-tender, nondistended. Hepatic and splenic margins not palpable. MUSCULOSKELETAL: Extremities without clubbing, cyanosis, or edema. No obvious deformities. NEUROLOGICAL: Awake and alert. No obvious cranial nerve deficits. Motor grossly within normal limits. Five out of 5 muscle strength in the arms and legs. Normal speech. PSYCHIATRIC: Appropriate mood and affect; insight and judgment normal. Data Data Last Documented VS Vital Signs Date Time Temp Pulse Resp B/P (MAP) Pulse Ox O2 Delivery O2 Flow Rate FiO2 03/01/17 16:13 85 18 164/85 (111) 94 Room Air 03/01/17 16:02 98.4 Orders Orders Electrocardiogram (03/01/17 13:54) Complete Blood Count With Diff (03/01/17 13:54) Comprehensive Metabolic Panel (03/01/17 13:54) Magnesium (Mg) (03/01/17 13:54) B-Type Natriuretic Peptide (03/01/17 13:54) Ckmb (Isoenzyme) Profile (03/01/17 13:54) Troponin I (03/01/17 13:54) Act Partial Throm Time (Ptt) (03/01/17 13:54) Urinalysis - C+S If Indicated (03/01/17 13:54) Ct Brain W/O Iv Contrast(Rout) (03/01/17 13:54) Blood Glucose (03/01/17 13:54) Ecg Monitoring (03/01/17 13:54) Iv Access Insert/Monitor (03/01/17 13:54) Oximetry (03/01/17 13:54) Meclizine (Antivert) (03/01/17 14:00) Ondansetron Inj (Zofran Inj) (03/01/17 14:00) Sodium Chloride 0.9% Flush (Ns Flush) (03/01/17 14:00) Orthostatic Vital Signs (03/01/17 13:54) Vascular Access Team Consult/P PRN (03/01/17 15:34) Vascular Poc Ultrasound (03/01/17 ) CKMB (03/01/17 15:43) CKMB% (03/01/17 15:43) Labs Laboratory Tests Test 03/01/17 15:43 03/01/17 15:53 White Blood Count 10.5 TH/MM3 Red Blood Count 4.52 MIL/MM3 Hemoglobin 13.9 GM/DL Hematocrit 40.9 % Mean Corpuscular Volume 90.6 FL Mean Corpuscular Hemoglobin 30.8 PG Mean Corpuscular Hemoglobin Concent 34.1 % Red Cell Distribution Width 14.8 % Platelet Count 161 TH/MM3 Mean Platelet Volume 9.7 FL Neutrophils (%) (Auto) 76.5 % Lymphocytes (%) (Auto) 12.5 % Monocytes (%) (Auto) 8.8 % Eosinophils (%) (Auto) 1.8 % Basophils (%) (Auto) 0.4 % Neutrophils # (Auto) 8.0 TH/MM3 Lymphocytes # (Auto) 1.3 TH/MM3 Monocytes # (Auto) 0.9 TH/MM3 Eosinophils # (Auto) 0.2 TH/MM3 Basophils # (Auto) 0.0 TH/MM3 CBC Comment DIFF FINAL Differential Comment Activated Partial Thromboplast Time 26.3 SEC Blood Urea Nitrogen 31 MG/DL Creatinine 1.49 MG/DL Random Glucose 141 MG/DL Total Protein 7.2 GM/DL Albumin 3.3 GM/DL Calcium Level 8.6 MG/DL Magnesium Level 1.6 MG/DL Alkaline Phosphatase 89 U/L Aspartate Amino Transf (AST/SGOT) 18 U/L Alanine Aminotransferase (ALT/SGPT) 27 U/L Total Bilirubin 0.6 MG/DL Sodium Level 135 MEQ/L Potassium Level 4.7 MEQ/L Chloride Level 98 MEQ/L Carbon Dioxide Level 31.3 MEQ/L Anion Gap 6 MEQ/L Estimat Glomerular Filtration Rate 47 ML/MIN Total Creatine Kinase 114 U/L Creatine Kinase MB 4.7 NG/ML Troponin I LESS THAN 0.02 NG/ML B-Type Natriuretic Peptide 52 PG/ML Urine Color YELLOW Urine Turbidity CLEAR Urine pH 5.5 Urine Specific [place] 1.012 Urine Protein NEG mg/dL Urine Glucose (UA) NEG mg/dL Urine Ketones NEG mg/dL Urine Occult Blood NEG Urine Nitrite NEG Urine Bilirubin NEG Urine Urobilinogen LESS THAN 2.0 MG/DL Urine Leukocyte Esterase NEG Urine RBC 2 /hpf Urine WBC 1 /hpf Urine Squamous Epithelial Cells 1 /hpf Urine Hyaline Casts 16 /lpf Urine Mucus FEW /lpf Microscopic Urinalysis Comment CULT NOT INDICATED MDM Medical Decision Making Medical Screen Exam Complete: Yes Emergency Medical Condition: Yes Medical Record Reviewed: Yes Differential Diagnosis Near syncopal episode. Vertigo. Scalp contusion. Narrative Course Patient appears medically stable at time of exam. EKG shows normal sinus rhythm with first AV block without ST changes noted. This is reviewed with Dr. Robison. CT of the head is ordered. Labs ordered including cardiac panel, CBC, CMP, proBNP, and urinalysis. CBC is unremarkable. CMP is unremarkable. Troponin is normal. BMP is normal. Urinalysis is unremarkable. Patient is given 4 mg Zofran IV as well as 50 mg meclizine by mouth. Orthostatics are ordered. CT is negative for acute process per radiologist. Labs show normal CBC, CMP showed , coagulation studies normal, urinalysis shows Patient is reevaluated at 1600 hrs., and feels much improved. Orthostatics are normal. Patient is able to sit and stand without difficulty. Patient is able to ambulate with a walker without difficulty and wants to go home. Patient is felt to be stable for discharge. Patient is given meclizine 25 mg up to 3 times a day when necessary. #30. Patient is recommended to follow-up with his neurologist, and real time analyst as discussed. Patient should return if symptoms worsen as needed. Diagnosis Primary Impression: Vertigo Referrals: Valentin Ferrari MD Accounts Collector Patient Instructions: Benign Paroxysmal Positional Vertigo (ED), General Instructions Additional Instructions: Patient is felt to be stable for discharge. Patient is given meclizine 25 mg up to 3 times a day when necessary. #30. Patient is recommended to follow-up with his neurologist, and real time analyst as discussed. Patient should return if symptoms worsen as needed. Med/Other Pt SpecificInfo: Prescription(s) given Scripts Meclizine (Meclizine) 25 Mg Tab 25 MG PO TID Y for VERTIGO, #30 TAB 0 Refills Prov: Sang Robison MD 03/01/17 Disposition: DISCHARGE HOME Condition: Stable Cirilo Xiong Mar 01, 2017 16:33
[2017-03-01 16:39] LABS: BILIRUBIN, URINE NEG (NEG); BLOOD, URINE NEG (NEG); GLUCOSE,URINE NEG (NEG); HYALINE CAST, URINE 16 /lpf (RARE); KETONE, URINE NEG (NEG); MUCUS URINE FEW /lpf (OCC); NITRITE,URINE NEG (NEG); PH, URINE 5.5 (5.0-8.5); SQUAMOUS EPITHELIAL CELL URINE 1 /hpf (0-5); URINE COLOR YELLOW (YELLW/STRAW); URINE LEUKOCYTE ESTERASE NEG (NEG)
[2017-03-01 16:42] LABS: ALBUMIN 3.3 GM/DL (3.4-5.0); AST (GOT) 18 U/L (15-37); BICARBONATE 31.3 MEQ/L (21.0-32.0); BLOOD UREA NITROGEN 31 MG/DL (7-18); CALCIUM 8.6 MG/DL (8.5-10.1); CHLORIDE 98 MEQ/L (98-107); CREATININE 1.49 MG/DL (0.60-1.30); GLOMERULAR FILTRATION RATE 47 ML/MIN (>89); GLUCOSE,RANDOM 141 MG/DL (74-106); MAGNESIUM 1.6 MG/DL (1.5-2.5); SODIUM (NA) 135 MEQ/L (136-145)
[2017-03-01 16:43] LABS: ALT (GPT) 27 U/L (12-78)
[2017-03-01 16:47] LABS: ALKALINE PHOSPHATASE 89 U/L (45-117); TOTAL BILIRUBIN ADULT 0.6 MG/DL (0.2-1.0); TOTAL PROTEIN 7.2 GM/DL (6.4-8.2); TROPONIN I LESS THAN 0.02 NG/ML (0.02-0.05)
[2017-03-01] MEDS ORDERED: MECL-62 PO (17:05)
--- NOTE | 2017-03-02 15:54 | EKG ---
Date Performed: 03/01/2017 Time Performed: 14:22:35 PTAGE: 71 years EKG: Sinus rhythm WITH FIRST DEGREE AV BLOCK ABNORMAL QRS-T ANGLE ABNORMAL ECG PREVIOUS TRACING : 02/18/2017 19.29 DOCTOR: Gianluca Brown Interpretating Date/Time 03/02/2017 15:53:31
== END 2017-03-01 18:51 | disposition home or self-care (01) ==
LOC: NEPC 13:36
DX: R42 Dizziness and giddiness (principal); R53.1 Weakness; I44.0 Atrioventricular block, first degree; R94.31 Abnormal electrocardiogram [ECG] [EKG]; E11.40 Type 2 diabetes mellitus with diabetic neuropathy, unspecified; I11.0 Hypertensive heart disease with heart failure; I50.9 Heart failure, unspecified; I25.2 Old myocardial infarction; E78.00 Pure hypercholesterolemia, unspecified
CPT/HCPCS: 70450; 80053; 81001; 82550; 82552; 83735; 83880; 84484; 85025; 85730; 93005

== ENCOUNTER 2017-06-30 19:30 | Observation (INO) | payer MEDICARE ==
[~2017-06-30] VITALS: Ht 170.2 cm; Wt 129.0 kg
[~2017-06-30 19:30] MED LIST changes: +MECL-62 PO
[2017-06-30 19:55] VITALS: BP 133/73; PULSE 98; RESP 18; TEMP 98.5; O2SAT 95
--- NOTE | 2017-06-30 20:55 | PD ---
HPI Chief Complaint: Skin Problem Time Seen by Provider: 20:38 Travel History International Travel<30 days: No Contact w/Intl Traveler<30days: No Traveled to known affect area: No History of Present Illness HPI Patient is a 72-year-old male who presents to emergency room with complaints of right lower extremity cellulitis. Patient reports that he has history of peripheral neuropathy, patient reports that 2 weeks ago, his pain management doctor Dr. Flores injected lidocaine to help with his peripheral neuropathy. Patient reports that he noticed over the past week increased redness and swelling to his right lower extremity. Denies any obvious trauma/injury to his right lower extremity. His primary care doctor started him on Keflex on June, reports that he was seen by his umbrella tipper machine on June 27, 2017, who added Bactrim to his antibiotic regimen, reports that his cellulitis has worsened. Patient denies any fever or chills, Reports that tetanus is up to date. 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) Blood Disorders: Yes (BRUISING WHERE INSULIN GIVEN, BLOOD IN URINE, FT BLEEDING & NOT ABLE TO STO) Heart Rhythm Problems: No Cancer: No High Cholesterol: Yes Chest Pain: Yes Congestive Heart Failure: Yes COPD: No Cerebrovascular Accident: No Coronary Artery Disease: Yes Diabetes: Yes (ON INSULIN) Patient Takes Glucophage: No Diminished Hearing: No Endocrine: Yes GERD: No Genitourinary: No Headaches: No Hepatitis: No Hiatal Hernia: No Hypertension: Yes Immune Disorder: Yes Implanted Vascular Access Dvce: Yes Kidney Stones: No Musculoskeletal: Yes Neurologic: Yes (NEUROPATHY) Psychiatric: No Reproductive: No Respiratory: No Migraines: No Myocardial Infarction: Yes (1995) Renal Failure: Yes Seizures: No Sleep Apnea: No Thyroid Disease: No Ulcer: No Tetanus Vaccination: < 5 Years Influenza Vaccination: Yes PNEUMOCCOCAL Vaccine (Year): 1 Past Surgical History Abdominal Surgery: Yes (right inquinal hernia repair) Appendectomy: No Body Medical Devices: LOOP RECORDER, SPINAL CORD STIMULATOR Cholecystectomy: No Coronary Stent: Yes (X5. LAST 2006.) Ear Surgery: No Endocrine Surgery: No Eye Surgery: Yes (Bilat cataract surgery ) Genitourinary Surgery: No Gynecologic Surgery: No Neurologic Surgery: Yes (SPINAL STIMULATOR IMPLANT) Oral Surgery: No Pacemaker: No Thoracic Surgery: No Other Surgery: Yes (loop recorder ) Social History Alcohol Use: Yes (OCC) Tobacco Use: No Substance Use: No Allergies-Medications (Allergen,Severity, Reaction): Coded Allergies: trimethobenzamide (Verified Allergy, Severe, anaphylactic, 06/30/17) Reported Meds & Prescriptions Reported Meds & Active Scripts Active Meclizine (Meclizine HCl) 25 Mg Tab 25 Mg PO TID PRN Ranexa ER 12 HR (Ranolazine) 500 Mg Tab 1,000 Mg PO BID Finasteride 5 Mg Tab 5 Mg PO DAILY Do not crush. Reported Flomax (Tamsulosin HCl) 0.4 Mg Cap 0.4 Mg PO HS Duloxetine DR (Duloxetine HCl) 60 Mg Capdr 60 Mg PO HS Aspirin Low Dose (Aspirin) 81 Mg Chew 81 Mg CHEW BID Fenofibric Acid Dr (Choline Fenofibrate DR) 135 mg Capdr 135 Mg PO HS Pilocarpine 5 Mg Tab 5 Mg PO Q8HR [place] Solostar Pen Inj (Insulin Glargine) 300 Unit/Ml Pen 100 Units SQ HS Humalog Inj (Insulin Human Lispro) 1,000 Unit/10 Ml Vial 1-9 Units SQ ACHS Max dose at bedtime:( )units; sugars< 70,(0)units; sugars 150-199,(1)unit; sugars 200-249,(3)units; sugars 250-299,(5)units; sugars 300-349,(7)units; sugars more than 349,(9)units. Tramadol ER 24 HR (Tramadol HCl) 100 Mg Sandip 100 Mg PO HS Omeprazole 20 Mg Tab 20 Mg PO DAILY Lyrica (Pregabalin) 100 Mg Cap 100 Mg PO TID Losartan (Losartan Potassium) 50 Mg Tab 50 Mg PO DAILY Fish Oil + D3 (Fish Oil-Cholecalciferol) 1,200-1,000 Mg-Unit Cap 2 Cap PO BID Isosorbide Mononitrate ER (Isosorbide Mononitrate) 60 Mg Tab 60 Mg PO DAILY Plavix (Clopidogrel Bisulfate) 75 Mg Tab 75 Mg PO DAILY Atorvastatin (Atorvastatin Calcium) 80 Mg Tab 80 Mg PO HS Tramadol (Tramadol HCl) 50 Mg Tab 50 Mg PO BID PRN Toprol XL (Metoprolol Succinate) 25 Mg Tab 100 Mg PO HS Savella (Milnacipran) 50 Mg Tab 50 Mg PO BID Nitroglycerin SL (Nitroglycerin) 0.4 Mg Subl 0.4 Mg SL DIRECTED PRN ONE TABLET UNDER THE TONGUE NEEDED FOR CHEST PAIN, MAY REPEAT EVERY FIVE MINUTES FOR A TOTAL OF 3 DOSES OR CALL 911 IF NO RELIEF Linzess (Linaclotide) 145 Mcg Cap 145 Mcg PO DAILY Bumetanide 2 Mg Tab 2 Mg PO BID Review of Systems General / Constitutional: No: Fever, Chills Eyes: No: Visual changes HENT: No: Headaches Cardiovascular: No: Chest Pain or Discomfort Respiratory: No: Shortness of Breath Gastrointestinal: No: Abdominal Pain Genitourinary: No: Dysuria Musculoskeletal: No: Pain Skin: Positive Other (redness and erythema to right lower extremity), No Rash Neurologic: No: Weakness Psychiatric: No: Depression Endocrine: No: Polydipsia Hematologic/Lymphatic: No: Easy Bruising Physical Exam Narrative GENERAL: NAD SKIN: Focused skin assessment warm/dry. HEAD: Atraumatic. Normocephalic. EYES: Pupils equal and round. No scleral icterus. No injection or drainage. ENT: No nasal bleeding or discharge. Mucous membranes pink and moist. NECK: Trachea midline. No JVD. CARDIOVASCULAR: Regular rate and rhythm. No murmur appreciated. RESPIRATORY: No accessory muscle use. Clear to auscultation. Breath sounds equal bilaterally. GASTROINTESTINAL: Abdomen soft, non-tender, nondistended. Hepatic and splenic margins not palpable. MUSCULOSKELETAL: No obvious deformities. No clubbing. No cyanosis. +2 pitting edema to RLE, patient with circumferential cellulitis from knee to ankle, pulses intact, neurovascularly intact NEUROLOGICAL: Awake and alert. No obvious cranial nerve deficits. Motor grossly within normal limits. Normal speech. PSYCHIATRIC: Appropriate mood and affect; insight and judgment normal. Data Data Last Documented VS Vital Signs Date Time Temp Pulse Resp B/P (MAP) Pulse Ox O2 Delivery O2 Flow Rate FiO2 06/30/17 19:55 98.5 98 18 133/73 (93) 95 Orders Orders Blood Culture (06/30/17 20:48) Basic Metabolic Panel (Bmp) (06/30/17 20:48) Complete Blood Count With Diff (06/30/17 20:48) Iv Access Insert/Monitor (06/30/17 20:48) Ecg Monitoring (06/30/17 20:48) Oximetry (06/30/17 20:48) Vancomycin 1 Gm/200 Ml Inj (Vancomycin 1 (06/30/17 22:00) Vancomycin Inj (Vancomycin Inj) (06/30/17 23:00) Labs Laboratory Tests Test 06/30/17 21:00 White Blood Count 10.1 TH/MM3 Red Blood Count 4.49 MIL/MM3 Hemoglobin 13.3 GM/DL Hematocrit 40.4 % Mean Corpuscular Volume 90.1 FL Mean Corpuscular Hemoglobin 29.6 PG Mean Corpuscular Hemoglobin Concent 32.9 % Red Cell Distribution Width 13.6 % Platelet Count 248 TH/MM3 Mean Platelet Volume 8.6 FL Neutrophils (%) (Auto) 67.3 % Lymphocytes (%) (Auto) 21.3 % Monocytes (%) (Auto) 7.5 % Eosinophils (%) (Auto) 2.5 % Basophils (%) (Auto) 1.4 % Neutrophils # (Auto) 6.8 TH/MM3 Lymphocytes # (Auto) 2.2 TH/MM3 Monocytes # (Auto) 0.8 TH/MM3 Eosinophils # (Auto) 0.3 TH/MM3 Basophils # (Auto) 0.1 TH/MM3 CBC Comment DIFF FINAL Differential Comment Blood Urea Nitrogen 28 MG/DL Creatinine 1.30 MG/DL Random Glucose 132 MG/DL Calcium Level 9.0 MG/DL Sodium Level 132 MEQ/L Potassium Level 4.3 MEQ/L Chloride Level 96 MEQ/L Carbon Dioxide Level 28.5 MEQ/L Anion Gap 8 MEQ/L Estimat Glomerular Filtration Rate 55 ML/MIN MDM Medical Decision Making Medical Screen Exam Complete: Yes Emergency Medical Condition: Yes Medical Record Reviewed: Yes Interpretation(s) Vital Signs Date Time Temp Pulse Resp B/P (MAP) Pulse Ox O2 Delivery O2 Flow Rate FiO2 06/30/17 19:55 98.5 98 18 133/73 (93) 95 Differential Diagnosis Cellulitis Narrative Course 72-year-old male presents to emergency room with complaints of cellulitis, patient failed outpatient treatment with Keflex as well as Bactrim. Patient reports progressing redness and erythema to his right lower extremity from his knee to his ankle. Patient's tetanus is up-to-date. During the course of the patients emergency department visit, the patients history, examination, and differential diagnosis were reviewed with the patient. The patient was placed on a restaurant assistant manager with oximetry and frequent blood pressure monitoring. The patient had an IV access obtained and blood work sent for analysis. The patient was initially provided IV vancomycin. The patients laboratory studies were reviewed and remarkable for: CBC & BMP Diagram 06/30/17 21:00 Calcium Level 9.0 Patient require admission to the hospital for IV antibiotics for treatment of his cellulitis case reviewed with Jud CASTELLON who accepts pt to service Diagnosis Primary Impression: Cellulitis of right lower leg Admitting Information Admitting Physician Requests: Observation Anamika Issa DO Jun 30, 2017 20:55
[2017-06-30] MEDS ORDERED: ASPI81CH6 CHEW (20:57)
[2017-06-30] MEDS ORDERED: DULO1CAP3 PO (20:57)
[2017-06-30] MEDS ORDERED: TAMS5CAP PO (20:57)
[2017-06-30] MEDS ORDERED: VANCOMYCIN INJ 1,900 MG in SODIUM CHLORID 0.9% 500 ML INJ 500 ML IV ONE (21:00)
[2017-06-30 21:29] LABS: AUTOMATED NEUTROPHIL # 6.8 TH/MM3 (1.8-7.7); BASOPHIL # 0.1 TH/MM3 (0-0.2); BASOPHIL % 1.4 % (0.0-2.0); EOSINOPHIL # 0.3 TH/MM3 (0-0.4); EOSINOPHIL % 2.5 % (0.0-4.0); HEMATOCRIT 40.4 % (39.0-51.0); HEMOGLOBIN 13.3 GM/DL (13.0-17.0); LYMPH % 21.3 % (9.0-44.0); LYMPHOCYTE # 2.2 TH/MM3 (1.0-4.8); MEAN CELL VOLUME 90.1 FL (80.0-100.0); MEAN CORPUSCULAR HEMOGLOBIN 29.6 PG (27.0-34.0); MEAN CORPUSCULAR HGB CONC 32.9 % (32.0-36.0); MEAN PLATELET VOLUME 8.6 FL (7.0-11.0); MONO % 7.5 % (0.0-8.0); MONOCYTE # 0.8 TH/MM3 (0-0.9); NEUT % 67.3 % (16.0-70.0); PLATELET COUNT 248 TH/MM3 (150-450); RED BLOOD COUNT 4.49 MIL/MM3 (4.50-5.90); RED CELL DISTRIBUTION WIDTH 13.6 % (11.6-17.2); WHITE BLOOD COUNT 10.1 TH/MM3 (4.0-11.0)
[2017-06-30 21:41] LABS: BICARBONATE 28.5 MEQ/L (21.0-32.0)
[2017-06-30 21:45] LABS: CREATININE 1.3 MG/DL (0.60-1.30)
[2017-06-30] MEDS ORDERED: VANCOMYCIN 1 GM/200 ML PREMIX IV ONE (22:00)
[2017-06-30] MEDS ORDERED: VANCOMYCIN INJ 900 MG in SODIUM CHLOR 0.9% 250 ML INJ 250 ML IV ONE (23:00)
[2017-06-30 23:55] VITALS: BP 184/89; PULSE 99; RESP 18; TEMP 98.4; O2SAT 94
[2017-07-01 00:17] VITALS: BP 183/84; PULSE 99; RESP 22; TEMP 97.5; O2SAT 94
[2017-07-01] MEDS ORDERED: Vancomycin Consult Pharmacy 1 EA OTHER SCH (00:30)
[2017-07-01] MEDS ORDERED: ONDANSETRON HCL 4 MG/2 ML VIAL IVP PRN (00:45)
[2017-07-01] MEDS ORDERED: SODIUM CHLORIDE 0.9% FLUSH 10 ML FLUSH IV FLUSH PRN (00:45)
[2017-07-01] MEDS ORDERED: NALOXONE HCL 0.4 MG/ML AMP IV PUSH PRN (00:45)
[2017-07-01] MEDS ORDERED: DEXTROSE 50% IN WATER 50 ML VIAL(D50) IV PUSH PRN (00:45)
[2017-07-01] MEDS ORDERED: ACETAMINOPHEN 325 MG TAB PO PRN (00:45)
[2017-07-01] MEDS ORDERED: GLUCAGON 1 MG/ML VIAL OTHER PRN (00:45)
[2017-07-01] MEDS: PIPERACIL-TAZO 3.375 GM PREMIX 50 ML IV SCH ×5 (03:38→21:09)
[2017-07-01 06:35] LABS: AUTOMATED NEUTROPHIL # 5.6 TH/MM3 (1.8-7.7); BASOPHIL % 0.6 % (0.0-2.0); EOSINOPHIL # 0.2 TH/MM3 (0-0.4); EOSINOPHIL % 2.6 % (0.0-4.0); HEMATOCRIT 40.6 % (39.0-51.0); HEMOGLOBIN 13.1 GM/DL (13.0-17.0); LYMPH % 17.7 % (9.0-44.0); LYMPHOCYTE # 1.4 TH/MM3 (1.0-4.8); MEAN CELL VOLUME 91.7 FL (80.0-100.0); MEAN CORPUSCULAR HEMOGLOBIN 29.7 PG (27.0-34.0); MEAN CORPUSCULAR HGB CONC 32.4 % (32.0-36.0); MEAN PLATELET VOLUME 8.7 FL (7.0-11.0); MONO % 7.7 % (0.0-8.0); MONOCYTE # 0.6 TH/MM3 (0-0.9); NEUT % 71.4 % (16.0-70.0); PLATELET COUNT 234 TH/MM3 (150-450); RED BLOOD COUNT 4.43 MIL/MM3 (4.50-5.90); RED CELL DISTRIBUTION WIDTH 13.4 % (11.6-17.2); WHITE BLOOD COUNT 7.8 TH/MM3 (4.0-11.0)
[2017-07-01 06:40] LABS: BICARBONATE 28.2 MEQ/L (21.0-32.0)
[2017-07-01 06:44] LABS: CREATININE 1.1 MG/DL (0.60-1.30)
[2017-07-01] MEDS ORDERED: MECLIZINE HCL 25 MG TAB PO PRN (07:15)
[2017-07-01 08:00] VITALS: BP 168/85; PULSE 101; RESP 18; TEMP 97.3; O2SAT 98
[2017-07-01] MEDS: INSULIN ASPART SUPPLEMENTAL SCALE SQ SCH ×4 (08:30→21:17)
[2017-07-01] MEDS ORDERED: MILNACIPRAN 50 MG PO SCH (09:00)
[2017-07-01] MEDS ORDERED: LINACLOTIDE 145 MCG PO SCH (09:00)
[2017-07-01] MEDS: SODIUM CHLORIDE 0.9% FLUSH 10 ML FLUSH IV FLUSH SCH ×2 (09:00→21:00)
[2017-07-01] MEDS: FINASTERIDE 5 MG TAB PO SCH (09:29)
[2017-07-01] MEDS: RANOLAZINE 500 MG EXTENDED RELEASE TAB PO SCH ×2 (09:29→21:08)
[2017-07-01] MEDS: LOSARTAN 50 MG TAB PO SCH (09:29)
[2017-07-01] MEDS: ISOSORBIDE MONONITRATE 60 MG CR TAB (IMDUR) PO SCH (09:29)
[2017-07-01] MEDS: CLOPIDOGREL 75 MG TAB PO SCH (09:30)
[2017-07-01] MEDS: BUMETANIDE 1 MG TAB PO SCH ×2 (09:30→21:09)
[2017-07-01] MEDS: ASPIRIN 81 MG CHEW TAB CHEW SCH ×2 (09:31→21:09)
[2017-07-01] MEDS: PREGABALIN 100 MG CAP PO SCH ×3 (09:31→17:08)
[2017-07-01] MEDS: PANTOPRAZOLE SOD 20 MG DELAYED RELEASE TAB PO SCH (09:31)
--- NOTE | 2017-07-01 11:43 | HHI.HP ---
[facility] Service [facility] Primary Care Physician Marky Osullivan MD Admission Diagnosis Cellulitis of right lower extremity Diagnoses: Travel History International Travel<30 Days: No Contact w/Intl Traveler <30 Da: No Traveled to Known Affected Are: No History of Present Illness Mr. Rivera is a 72 year old male. He has a history of CAD and DM2. He came in the hospital after gradual development of a right lower extremity cellulitis. He said the redness erythema and pain have increased significantly over the past 2 days. There is some drainage at lateral aspect with a small wound which may be the source. No signs of abscess. He says he has had no notable fevers at home. Right now he has no other complaints. Review of Systems Constitutional: DENIES: Fatigue, Fever, Chills Eyes: DENIES: Diplopia, Eye inflammation, Eye pain Ears, nose, mouth, throat: DENIES: Hearing loss, Vertigo, Nasal discharge Respiratory: DENIES: Cough, Wheezing, Shortness of breath Cardiovascular: DENIES: Chest pain, Palpitations, Syncope Gastrointestinal: DENIES: Abdominal pain, Black stools, Bloody stools Musculoskeletal: COMPLAINS OF: Stiffness, Joint Swelling, DENIES: Joint pain Integumentary: COMPLAINS OF: Abnormal pigmentation, DENIES: Rash Hematologic/lymphatic: DENIES: Bruising, Lymphadenopathy Immunologic/allergic: DENIES: Eczema, Urticaria Neurologic: DENIES: Abnormal gait, Headache, Paresthesias Psychiatric: DENIES: Anxiety, Confusion, Hallucinations Past Family Social History Past Medical History Coronary artery disease with 5 stents placed with the last one placed in 2006 Hyperlipidemia Hypertension Diabetes mellitus Diabetic neuropathy Tomasz and cone disease Chronic kidney disease BPH Past Surgical History Coronary artery disease with stent placement 5 Loop recorder Spinal cord stimulator Right inguinal hernia repair Lumbar spine surgery Bilateral cataract surgery Tonsillectomy Cystoscopy by Dr. Stewart Reported Medications Reported Meds & Active Scripts Active Meclizine (Meclizine HCl) 25 Mg Tab 25 Mg PO TID PRN Ranexa ER 12 HR (Ranolazine) 500 Mg Tab 1,000 Mg PO BID Finasteride 5 Mg Tab 5 Mg PO DAILY Do not crush. Reported Flomax (Tamsulosin HCl) 0.4 Mg Cap 0.4 Mg PO HS Duloxetine DR (Duloxetine HCl) 60 Mg Capdr 60 Mg PO HS Aspirin Low Dose (Aspirin) 81 Mg Chew 81 Mg CHEW BID Vitamin D-3 (Cholecalciferol) 1,000 Unit Cap 5,000 Units PO DAILY Fenofibric Acid Dr (Choline Fenofibrate DR) 135 mg Capdr 135 Mg PO HS Pilocarpine 5 Mg Tab 5 Mg PO Q8HR Toluz marina Solostar Pen Inj (Insulin Glargine) 300 Unit/Ml Pen 100 Units SQ HS Humalog Inj (Insulin Human Lispro) 1,000 Unit/10 Ml Vial 1-9 Units SQ ACHS Max dose at bedtime:( )units; sugars< 70,(0)units; sugars 150-199,(1)unit; sugars 200-249,(3)units; sugars 250-299,(5)units; sugars 300-349,(7)units; sugars more than 349,(9)units. Tramadol ER 24 HR (Tramadol HCl) 100 Mg Sandip 100 Mg PO HS Omeprazole 20 Mg Tab 20 Mg PO DAILY Lyrica (Pregabalin) 100 Mg Cap 100 Mg PO TID Losartan (Losartan Potassium) 50 Mg Tab 50 Mg PO DAILY Fish Oil + D3 (Fish Oil-Cholecalciferol) 1,200-1,000 Mg-Unit Cap 2 Cap PO BID Isosorbide Mononitrate ER (Isosorbide Mononitrate) 60 Mg Tab 60 Mg PO DAILY Plavix (Clopidogrel Bisulfate) 75 Mg Tab 75 Mg PO DAILY Atorvastatin (Atorvastatin Calcium) 80 Mg Tab 80 Mg PO HS Tramadol (Tramadol HCl) 50 Mg Tab 50 Mg PO BID PRN Toprol XL (Metoprolol Succinate) 25 Mg Tab 100 Mg PO HS Savella (Milnacipran) 50 Mg Tab 50 Mg PO BID Nitroglycerin SL (Nitroglycerin) 0.4 Mg Subl 0.4 Mg SL DIRECTED PRN ONE TABLET UNDER THE TONGUE NEEDED FOR CHEST PAIN, MAY REPEAT EVERY FIVE MINUTES FOR A TOTAL OF 3 DOSES OR CALL 911 IF NO RELIEF Linzess (Linaclotide) 145 Mcg Cap 145 Mcg PO DAILY Bumetanide 2 Mg Tab 2 Mg PO BID Allergies: Coded Allergies: trimethobenzamide (Verified Allergy, Severe, anaphylactic, 06/30/17) Active Ordered Medications Administered Medications Medications (Trade) Dose Ordered Sig/Rafael Route PRN Reason Start Time Stop Time Status Last Admin Dose Admin Piperacillin Sod/ Tazobactam Sod 50 ml @ 100 mls/hr Q6H IV 07/01/17 02:00 07/01/17 08:32 Sodium Chloride (NS Flush) 2 ml BID IV FLUSH 07/01/17 09:00 07/01/17 09:00 Acetaminophen (Tylenol) 650 mg Q4H PRN PO TEMP > 100.4 07/01/17 00:45 07/01/17 08:32 Insulin Aspart (NovoLOG SUPPLEMENTAL SCALE) 1 ACHS SLIDING SCALE SQ 07/01/17 08:00 07/01/17 08:30 Aspirin (Aspirin Chew) 81 mg BID CHEW 07/01/17 09:00 07/01/17 09:31 Bumetanide (Bumetanide) 2 mg BID PO 07/01/17 09:00 07/01/17 09:30 Clopidogrel Bisulfate (Plavix) 75 mg DAILY PO 07/01/17 09:00 07/01/17 09:30 Finasteride (Proscar) 5 mg DAILY PO 07/01/17 09:00 07/01/17 09:29 Isosorbide Mononitrate (Imdur) 60 mg DAILY PO 07/01/17 09:00 07/01/17 09:29 Losartan Potassium (Cozaar) 50 mg DAILY PO 07/01/17 09:00 07/01/17 09:29 Pregabalin (Lyrica) 100 mg TID PO 07/01/17 09:00 07/01/17 09:31 Ranolazine (Ranexa) 1,000 mg BID PO 07/01/17 09:00 07/01/17 09:29 Pantoprazole Sodium (Protonix) 20 mg DAILY PO 07/01/17 09:00 07/01/17 09:31 Family History Mother is healthy and alive at age 96 Father at age 78 secondary to CVA and also had diabetes mellitus . Social History Tobacco smoked 1/2-1 pack per day for about 10 years, quit 40 years ago. Alcohol: Occasional Illicit drugs: Denies Physical Exam Vital Signs Vital Signs Date Time Temp Pulse Resp B/P (MAP) Pulse Ox O2 Delivery O2 Flow Rate FiO2 07/01/17 08:00 97.3 101 18 168/85 (112) 98 07/01/17 00:17 97.5 99 22 183/84 (117) 94 07/01/17 00:10 06/30/17 23:55 98.4 99 18 184/89 (120) 94 Room Air 06/30/17 19:55 98.5 98 18 133/73 (93) 95 Physical Exam GENERAL: NAD, A&Ox3 HEAD: Normocephalic. NECK: Supple, trachea midline. No lymphadenopathy. EYES: No scleral icterus. No injection or drainage. CARDIOVASCULAR: Regular rate and rhythm without murmurs, gallops, or rubs. RESPIRATORY: Breath sounds equal bilaterally. No accessory muscle use. GASTROINTESTINAL: Abdomen soft, non-tender, nondistended. MUSCULOSKELETAL: No cyanosis, or edema. Erythema starts below the knee down to the ankle, mild induration. 1 cm wound at the right lateral malleolus with drainage. Right Lower Extremity is warm to touch compared to the left. SKIN: Warm and dry. NEURO: No focal neurological deficitis. Laboratory Laboratory Tests Test 06/30/17 21:00 07/01/17 05:50 White Blood Count 10.1 7.8 Red Blood Count 4.49 4.43 Hemoglobin 13.3 13.1 Hematocrit 40.4 40.6 Mean Corpuscular Volume 90.1 91.7 Mean Corpuscular Hemoglobin 29.6 29.7 Mean Corpuscular Hemoglobin Concent 32.9 32.4 Red Cell Distribution Width 13.6 13.4 Platelet Count 248 234 Mean Platelet Volume 8.6 8.7 Neutrophils (%) (Auto) 67.3 71.4 Lymphocytes (%) (Auto) 21.3 17.7 Monocytes (%) (Auto) 7.5 7.7 Eosinophils (%) (Auto) 2.5 2.6 Basophils (%) (Auto) 1.4 0.6 Neutrophils # (Auto) 6.8 5.6 Lymphocytes # (Auto) 2.2 1.4 Monocytes # (Auto) 0.8 0.6 Eosinophils # (Auto) 0.3 0.2 Basophils # (Auto) 0.1 0.0 CBC Comment DIFF FINAL DIFF FINAL Differential Comment Blood Urea Nitrogen 28 22 Creatinine 1.30 1.10 Random Glucose 132 162 Calcium Level 9.0 9.0 Sodium Level 132 135 Potassium Level 4.3 3.9 Chloride Level 96 100 Carbon Dioxide Level 28.5 28.2 Anion Gap 8 7 Estimat Glomerular Filtration Rate 55 66 Date/Time Source Procedure Growth Status 06/30/17 21:05 Blood Peripheral Aerobic Blood Culture - Preliminary NO GROWTH IN 1 DAY Resulted 06/30/17 21:05 Blood Peripheral Anaerobic Blood Culture - Preliminary NO GROWTH IN 1 DAY Resulted 07/01/17 09:40 Wound Ankle Gram Stain Pending Received 07/01/17 09:40 Wound Ankle Wound Culture Pending Received Result Diagram: 07/01/17 0550 07/01/17 0550 Caprini VTE Risk Assessment Caprini VTE Risk Assessment: Mod/High Risk (score >= 2) Caprini Risk Assessment Model Point Value = 1 Point Value = 2 Point Value = 3 Point Value = 5 Age 41-60 Minor surgery BMI > 25 kg/m2 Swollen legs Varicose veins or History of unexplained or recurrent spontaneous Oral contraceptives or hormone replacement Sepsis (< 1 month) Serious lung disease, including pneumonia (< 1 month) Abnormal pulmonary function Acute myocardial infarction Congestive heart failure (< 1 month) History of inflammatory bowel disease Medical patient at bed rest Age 61-74 Arthroscopic surgery Major open surgery (> 45 min) Laparoscopic surgery (> 45 min) Malignancy Confined to bed (> 72 hours) Immobilizing plaster cast Central venous access Age >= 75 History of VTE Family history of VTE Factor V Leiden Prothrombin [id number] Lupus anticoagulant Anticardiolipin antibodies Elevated serum homocysteine Heparin-induced thrombocytopenia Other congenital or acquired thrombophilia Stroke (< 1 month) Elective arthroplasty Hip, pelvis, or leg fracture Acute spinal cord injury (< 1 month) Prophylaxis Regimen Total Risk Factor Score Risk Level Prophylaxis Regimen 0-1 Low Early ambulation 2 Moderate Order ONE of the following: *Sequential Compression Device (SCD) *Heparin 5000 units SQ BID 3-4 Higher Order ONE of the following medications: *Heparin 5000 units SQ TID *Enoxaparin/Lovenox 40 mg SQ daily (WT < 150 kg, CrCl > 30 mL/min) *Enoxaparin/Lovenox 30 mg SQ daily (WT < 150 kg, CrCl > 10-29 mL/min) *Enoxaparin/Lovenox 30 mg SQ BID (WT < 150 kg, CrCl > 30 mL/min) AND/OR *Sequential Compression Device (SCD) 5 or more Highest Order ONE of the following medications: *Heparin 5000 units SQ TID (Preferred with Epidurals) *Enoxaparin/Lovenox 40 mg SQ daily (WT < 150 kg, CrCl > 30 mL/min) *Enoxaparin/Lovenox 30 mg SQ daily (WT < 150 kg, CrCl > 10-29 mL/min) *Enoxaparin/Lovenox 30 mg SQ BID (WT < 150 kg, CrCl > 30 mL/min) AND *Sequential Compression Device (SCD) Assessment and Plan Problem List: (1) Type 2 diabetes mellitus with peripheral neuropathy ICD Code: E11.40 - Type 2 diabetes mellitus with peripheral neuropathy Status: Acute (2) Diabetic peripheral neuropathy associated with type 1 diabetes mellitus ICD Code: E10.42 - Diabetic peripheral neuropathy associated with type 1 diabetes mellitus Status: Acute (3) Cellulitis of right lower leg ICD Code: L03.115 - Cellulitis of right lower limb Status: Acute Assessment and Plan 72-year-old male admitted secondary to cellulitis Acute right lower extremity cellulitis Continue Zosyn Continue vancomycin Follow cultures Monitor for improvement Coronary artery disease Asymptomatic Follow clinically Hypertension Continue baseline treatment Follow blood pressures Adjust treatments as needed Hyperlipidemia Continue present treatment Follow as an outpatient Diabetic neuropathy Diabetes mellitus type 2 Follow blood sugars Insulin sliding scale Diabetic diet Chronic kidney disease BPH Follow renal function No change to baseline treatments DVT prophylaxis Loydx Jonathan Adamson MD Jul 01, 2017 11:43
[2017-07-01 12:00] VITALS: BP 137/82; PULSE 114; RESP 20; TEMP 96.4; O2SAT 96
[2017-07-01] MEDS: ENOXAPARIN SODIUM 40 MG/0.4 ML SYRINGE SQ SCH (12:32)
[2017-07-01] MEDS: VANCOMYCIN 1,500 MG/NS 500 ML IV SCH ×2 (15:13)
[2017-07-01 16:00] VITALS: BP 137/85; PULSE 81; RESP 16; TEMP 95.4; O2SAT 98
[2017-07-01 20:00] VITALS: BP 139/79; PULSE 112; RESP 20; TEMP 98.3; O2SAT 95
[2017-07-01] MEDS ORDERED: TAMSULOSIN HCL 0.4 MG CAP PO SCH (21:00)
[2017-07-01] MEDS ORDERED: ATORVASTATIN 40 MG TAB PO SCH (21:00)
[2017-07-01] MEDS ORDERED: DULoxetine HCl DR 60 MG CAP PO SCH (21:00)
[2017-07-01] MEDS ORDERED: FENOFIBRATE 145 MG TAB PO SCH (21:00)
[2017-07-01] MEDS ORDERED: METOPROLOL SUCCINATE 50 MG EXTENDED RELEASE TAB PO SCH (21:00)
[2017-07-02 00:18] VITALS: BP 127/76; PULSE 90; RESP 18; TEMP 98.3; O2SAT 96
[2017-07-02] MEDS: VANCOMYCIN 1,500 MG/NS 500 ML IV SCH ×2 (03:08)
[2017-07-02] MEDS: PIPERACIL-TAZO 3.375 GM PREMIX 50 ML IV SCH ×2 (03:08→08:00)
[2017-07-02 07:49] LABS: AUTOMATED NEUTROPHIL # 5.4 TH/MM3 (1.8-7.7); BASOPHIL % 0.4 % (0.0-2.0); EOSINOPHIL # 0.2 TH/MM3 (0-0.4); EOSINOPHIL % 2.7 % (0.0-4.0); HEMATOCRIT 42.3 % (39.0-51.0); HEMOGLOBIN 13.8 GM/DL (13.0-17.0); LYMPH % 18.9 % (9.0-44.0); LYMPHOCYTE # 1.4 TH/MM3 (1.0-4.8); MEAN CELL VOLUME 90.9 FL (80.0-100.0); MEAN CORPUSCULAR HEMOGLOBIN 29.6 PG (27.0-34.0); MEAN CORPUSCULAR HGB CONC 32.6 % (32.0-36.0); MEAN PLATELET VOLUME 8.4 FL (7.0-11.0); MONO % 7.7 % (0.0-8.0); MONOCYTE # 0.6 TH/MM3 (0-0.9); NEUT % 70.3 % (16.0-70.0); PLATELET COUNT 288 TH/MM3 (150-450); RED BLOOD COUNT 4.66 MIL/MM3 (4.50-5.90); RED CELL DISTRIBUTION WIDTH 13.7 % (11.6-17.2); WHITE BLOOD COUNT 7.6 TH/MM3 (4.0-11.0)
[2017-07-02 08:00] VITALS: BP 136/79; PULSE 93; RESP 18; TEMP 98.1; O2SAT 93
[2017-07-02] MEDS: INSULIN ASPART SUPPLEMENTAL SCALE SQ SCH ×2 (08:00→12:00)
[2017-07-02] MEDS: PREGABALIN 100 MG CAP PO SCH ×2 (08:32→12:21)
[2017-07-02] MEDS: ASPIRIN 81 MG CHEW TAB CHEW SCH (08:32)
[2017-07-02] MEDS: RANOLAZINE 500 MG EXTENDED RELEASE TAB PO SCH (08:32)
[2017-07-02] MEDS: PANTOPRAZOLE SOD 20 MG DELAYED RELEASE TAB PO SCH (08:33)
[2017-07-02] MEDS: BUMETANIDE 1 MG TAB PO SCH (08:33)
[2017-07-02] MEDS: LOSARTAN 50 MG TAB PO SCH (08:33)
[2017-07-02] MEDS: ISOSORBIDE MONONITRATE 60 MG CR TAB (IMDUR) PO SCH (08:33)
[2017-07-02] MEDS: CLOPIDOGREL 75 MG TAB PO SCH (08:33)
[2017-07-02] MEDS: FINASTERIDE 5 MG TAB PO SCH (08:33)
[2017-07-02] MEDS: SODIUM CHLORIDE 0.9% FLUSH 10 ML FLUSH IV FLUSH SCH (08:34)
[2017-07-02] MEDS ORDERED: INSULIN DETEMIR 100 UNITS/ML VIAL SQ SCH (10:00)
--- NOTE | 2017-07-02 11:08 | HHI.PR ---
Subjective Remarks Patient seen and examined today for follow-up on right lower extremity cellulitis. Patient indicates that it is improved. Swelling has gone down, no more drainage. Patient is eager to go home. Vital signs are stable, patient remains afebrile Objective Vitals Vital Signs Date Time Temp Pulse Resp B/P (MAP) Pulse Ox O2 Delivery O2 Flow Rate FiO2 07/02/17 08:00 98.1 93 18 136/79 (98) 93 07/02/17 04:00 07/02/17 04:00 07/02/17 00:18 98.3 90 18 127/76 (93) 96 07/01/17 20:00 98.3 112 20 139/79 (99) 95 07/01/17 16:00 95.4 81 16 137/85 (102) 98 07/01/17 12:00 96.4 114 20 137/82 (100) 96 I/O 07/01/17 07/01/17 07/01/17 07/02/17 07/02/17 07/02/17 07:00 15:00 23:00 07:00 15:00 23:00 Intake Total 679 ml 200 ml 515 ml 0 ml Output Total 1125 ml 1000 ml Balance -446 ml 200 ml 515 ml -1000 ml 0 ml Intake Oral 420 ml IV Total 259 ml 200 ml 515 ml 0 ml Output Urine Total 1125 ml 1000 ml # Voids 1 1 1 # Bowel Movements 0 1 Result Diagram: 07/02/17 0715 07/01/17 0550 Objective Remarks GENERAL: Well-developed, well-nourished, in no acute distress. alert and orientated HEENT: Head is normocephalic without any lesions or masses noted. Facial features are symmetric. Eyes: Extraocular muscles are intact. Conjunctivae were clear. NECK: Supple without any masses. Trachea midline no deviation. No JVD, CARDIAC: Regular rhythm, regular rate. S1/S2 are heard. No murmurs gallops or rubs. LUNGS: Clear to auscultation bilaterally. No wheeze, rhonchi or rales. No use of accessory muscles on inspiration or expiration. ABDOMEN: Soft, nontender. Nondistended. Bowel sounds heard in all 4 quadrants. No organomegaly or masses. Negative rebound, negative guarding EXTREMITIES: No edema, pulses are equal bilaterally. No cyanosis or clubbing NEUROLOGY: Mood and affect appear appropriate. Cranial nerves II through XII grossly intact. Moving all extremities, speech is clear RIGHT LOWER EXTREMITY: There is some mild erythema noted from mid tibia down to above the ankle. There are multiple excoriations with eschar. No edema appreciated. No drainage noted. Urinary Catheter: No Vascular Central Line Catheter: No A/P Assessment and Plan Right lower extremity cellulitis, improving Complicated by diabetes and diabetic neuropathy Patient is on vancomycin and Zosyn Blood cultures are negative for 1 day Gram stain shows no WBCs or organisms seen Patient indicates he does have orthotic shoes that was set up by his primary medical Dr. Elliot counseled and recommended to the patient that he should have a tar boiler with his history to follow him at least every 6 months. Diabetes Diabetic diet Accu-Cheks with sliding scale insulin Start Levemir 7 units twice daily Hypertension, hyper lipidemia, coronary disease Continue home medications Chronic kidney disease stage II Renal function appears stable Avoid nephrotoxic medication DVT prevention Subcutaneous Lovenox Discharge Planning Discharge home in stable condition Activity: Ad bessie. Diet: Diabetic diet Medication per medication reconciliation Follow-up with primary medical doctor in 1 week Kirby Williamson Jul 02, 2017 11:07
[2017-07-02] MEDS ORDERED: AUGM875T3 PO (11:14)
[2017-07-02] MEDS ORDERED: BACT800T5 PO (11:14)
--- NOTE | 2017-07-02 11:14 | HHI.DCPOC ---
Discharge Care Plan Diagnosis: (1) Cellulitis of right lower leg Goals to Promote Your Health * To prevent worsening of your condition and complications * To maintain your health at the optimal level Directions to Meet Your Goals Take your medications as prescribed Follow your dietary instruction Follow activity as directed Keep your appointments as scheduled Take your immunizations and boosters as scheduled If your symptoms worsen call your PCP, if no PCP go to Urgent Care Center or Emergency Room Smoking is Dangerous to Your Health. Avoid second hand smoke Call the 24-hour hour crisis hotline for domestic abuse at Kirby Williamson Jul 02, 2017 11:14
[2017-07-02 12:00] VITALS: BP 141/74; PULSE 87; RESP 16; TEMP 97.8; O2SAT 96
[2017-07-02] MEDS: ENOXAPARIN SODIUM 40 MG/0.4 ML SYRINGE SQ SCH (12:23)
[2017-07-02] MEDS ORDERED: PHARMACY ORDERED LAB ONE (13:45)
== END 2017-07-02 13:02 | disposition home or self-care (01) ==
LOC: PHED 19:30 → PHEDA 22:10 → PH3B 07-01 00:17
PROVIDERS: ADMIT Hospitalist; ATTEND Hospitalist
DX: L03.115 Cellulitis of right lower limb (principal); A49.02 Methicillin resistant Staphylococcus aureus infection, unspecified site; E11.40 Type 2 diabetes mellitus with diabetic neuropathy, unspecified; I13.0 Hypertensive heart and chronic kidney disease with heart failure and stage 1 through stage 4 chronic kidney disease, or unspecified chronic kidney disease; N18.2 Chronic kidney disease, stage 2 (mild); I50.9 Heart failure, unspecified; I25.10 Atherosclerotic heart disease of native coronary artery without angina pectoris; E78.5 Hyperlipidemia, unspecified; I25.2 Old myocardial infarction; N40.0 Benign prostatic hyperplasia without lower urinary tract symptoms; Z79.4 Long term (current) use of insulin; Z95.5 Presence of coronary angioplasty implant and graft; Z87.891 Personal history of nicotine dependence; Z82.3 Family history of stroke
CPT/HCPCS: 80048; 82948; 85025; 86403; 87040; 87070; 87186; 87205; 96365; 96366; 96368; 96372; 97162; 99285; G0378; G8987; G8988; J1650; J1815; J2543; J3370; J7040; J7050

== ENCOUNTER 2017-09-04 09:07 | Emergency (ER) | payer MEDICARE ==
[~2017-09-04] VITALS: Ht 172.7 cm; Wt 127.0 kg
[~2017-09-04 09:07] MED LIST changes: -ASPI1TAB69 PO; +ASPI81CH6 CHEW; +AUGM875T3 PO; +BACT800T5 PO; -CHOL50006; -NUCY100T9 PO; -NUCY50TA PO; -NUCY50TA10 PO
[2017-09-04 09:11] VITALS: BP 145/96; PULSE 82; RESP 18; TEMP 97.8; O2SAT 95
[2017-09-04] MEDS ORDERED: RANO500 PO (09:30)
[2017-09-04] MEDS ORDERED: BACT800T5 PO (10:08)
[2017-09-04] MEDS ORDERED: CEPH-460 PO (10:08)
--- NOTE | 2017-09-04 10:14 | PD ---
HPI Chief Complaint: Skin Problem Time Seen by Provider: 09:54 Travel History International Travel<30 days: No Contact w/Intl Traveler<30days: No Traveled to known affect area: No History of Present Illness HPI 72-year-old male here with abscess to the left lower abdominal wall present for 3-4 days. He has been applying warm compresses to the area and Bactroban ointment with minimal relief. He denies fever, chills, elevated blood sugars, abdominal pain. Symptom severity is moderate. He reports mild aching pain at the site of the abscess. 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) Blood Disorders: Yes (BRUISING WHERE INSULIN GIVEN, BLOOD IN URINE, FT BLEEDING & NOT ABLE TO STO) Heart Rhythm Problems: No Cancer: No Cardiovascular Problems: Yes High Cholesterol: Yes Chest Pain: Yes Congestive Heart Failure: Yes COPD: No Cerebrovascular Accident: No Coronary Artery Disease: Yes Diabetes: Yes Patient Takes Glucophage: No Diminished Hearing: No Endocrine: Yes GERD: Yes Genitourinary: No Headaches: No Hepatitis: No Hiatal Hernia: No Hypertension: Yes Immune Disorder: Yes Implanted Vascular Access Dvce: Yes Kidney Stones: No Musculoskeletal: Yes Neurologic: Yes (NEUROPATHY) Psychiatric: No Reproductive: No Respiratory: No Migraines: No Myocardial Infarction: Yes (1995) Renal Failure: Yes Seizures: No Sleep Apnea: No Thyroid Disease: No Ulcer: No Influenza Vaccination: Yes PNEUMOCCOCAL Vaccine (Year): 1 Past Surgical History Abdominal Surgery: Yes (right inquinal hernia repair) Appendectomy: No Body Medical Devices: LOOP RECORDER, SPINAL CORD STIMULATOR Cholecystectomy: No Coronary Stent: Yes (X5. LAST 2006.) Ear Surgery: No Endocrine Surgery: No Eye Surgery: Yes (Bilat cataract surgery ) Genitourinary Surgery: No Gynecologic Surgery: No Neurologic Surgery: Yes (SPINAL STIMULATOR IMPLANT) Oral Surgery: No Pacemaker: No Thoracic Surgery: No Other Surgery: Yes (loop recorder ) Social History Alcohol Use: Yes (OCC) Tobacco Use: No Substance Use: No Allergies-Medications (Allergen,Severity, Reaction): Coded Allergies: trimethobenzamide (Verified Allergy, Severe, anaphylactic, 09/04/17) Reported Meds & Prescriptions Reported Meds & Active Scripts Active Meclizine (Meclizine HCl) 25 Mg Tab 25 Mg PO TID PRN Finasteride 5 Mg Tab 5 Mg PO DAILY Do not crush. Reported Ranexa ER 12 HR (Ranolazine) 500 Mg Tab 500 Mg PO BID Flomax (Tamsulosin HCl) 0.4 Mg Cap 0.4 Mg PO HS Duloxetine DR (Duloxetine HCl) 60 Mg Capdr 60 Mg PO HS Aspirin Low Dose (Aspirin) 81 Mg Chew 81 Mg CHEW BID Vitamin D-3 (Cholecalciferol) 1,000 Unit Cap 5,000 Units PO DAILY Fenofibric Acid Dr (Choline Fenofibrate DR) 135 mg Capdr 135 Mg PO HS Pilocarpine 5 Mg Tab 5 Mg PO Q8HR Humalog Inj (Insulin Human Lispro) 1,000 Unit/10 Ml Vial 1-9 Units SQ ACHS Max dose at bedtime:( )units; sugars< 70,(0)units; sugars 150-199,(1)unit; sugars 200-249,(3)units; sugars 250-299,(5)units; sugars 300-349,(7)units; sugars more than 349,(9)units. Tramadol ER 24 HR (Tramadol HCl) 100 Mg Sandip 100 Mg PO HS Omeprazole 20 Mg Tab 20 Mg PO DAILY Lyrica (Pregabalin) 100 Mg Cap 100 Mg PO TID Losartan (Losartan Potassium) 50 Mg Tab 50 Mg PO DAILY Fish Oil + D3 (Fish Oil-Cholecalciferol) 1,200-1,000 Mg-Unit Cap 2 Cap PO BID Isosorbide Mononitrate ER (Isosorbide Mononitrate) 60 Mg Tab 60 Mg PO DAILY Plavix (Clopidogrel Bisulfate) 75 Mg Tab 75 Mg PO DAILY Atorvastatin (Atorvastatin Calcium) 80 Mg Tab 80 Mg PO HS Tramadol (Tramadol HCl) 50 Mg Tab 50 Mg PO BID Toprol XL (Metoprolol Succinate) 25 Mg Tab 100 Mg PO HS Savella (Milnacipran) 50 Mg Tab 50 Mg PO BID Nitroglycerin SL (Nitroglycerin) 0.4 Mg Subl 0.4 Mg SL DIRECTED PRN ONE TABLET UNDER THE TONGUE NEEDED FOR CHEST PAIN, MAY REPEAT EVERY FIVE MINUTES FOR A TOTAL OF 3 DOSES OR CALL 911 IF NO RELIEF Linzess (Linaclotide) 145 Mcg Cap 145 Mcg PO DAILY Bumetanide 2 Mg Tab 2 Mg PO BID Review of Systems Except as stated in HPI: all other systems reviewed are Neg General / Constitutional: No: Fever Eyes: No: Visual changes HENT: No: Headaches Cardiovascular: No: Chest Pain or Discomfort Respiratory: No: Shortness of Breath Gastrointestinal: No: Abdominal Pain Genitourinary: No: Dysuria Musculoskeletal: No: Pain Neurologic: No: Weakness Physical Exam Narrative GENERAL: Alert and well-appearing 72-year-old male SKIN: Erythematous and indurated area to the left lower abdominal wall. The area is indurated without fluctuance. Central excoriated skin with no drainage. No lymphangitis streaking. HEAD: Normocephalic. EYES:No injection or drainage. NECK: Supple, trachea midline. CARDIOVASCULAR: Regular rate and rhythm without murmurs, gallops, or rubs. RESPIRATORY: Breath sounds equal bilaterally. No accessory muscle use. GASTROINTESTINAL: Abdomen soft, non-tender, obese abdomen. MUSCULOSKELETAL: No cyanosis, or edema. BACK: No CVA tenderness. Data Data Last Documented VS Vital Signs Date Time Temp Pulse Resp B/P (MAP) Pulse Ox O2 Delivery O2 Flow Rate FiO2 09/04/17 09:11 97.8 82 18 145/96 (112) 95 MDM Medical Decision Making Medical Screen Exam Complete: Yes Emergency Medical Condition: Yes Interpretation(s) Afebrile. No tachycardia Differential Diagnosis Abscess, cellulitis, folliculitis Narrative Course 72-year-old male here early abscess versus cellulitis to the left lower abdominal wall. He is well-appearing. Afebrile. The area is indurated without fluctuance. Area was marked with a pen. He is to start on antibiotics , warm compresses, return in 2 days for recheck. Diagnosis Primary Impression: Cellulitis Qualified Codes: L03.311 - Cellulitis of abdominal wall Referrals: Primary Care Physician Additional Instructions: Antibiotics as directed. Warm compresses to the area several times per day. Follow-up with your primary doctor or return in 2 days for wound recheck. Return if he develop new or worsening symptoms as we discussed Scripts Cephalexin (Keflex) 500 Mg Cap 500 MG PO Q6H for Infection for 10 Days, #40 CAP 0 Refills Prov: Lore Bird KNOWLEDGE ARCHITECT 09/04/17 Sulfamethoxazole-Trimethoprim (Bactrim DS) 800-160 Mg Tab 1 TAB PO BID for Infection, #20 TAB 0 Refills Prov: Lore Bird 09/04/17 Disposition: 01 DISCHARGE HOME Condition: Stable Lore Bird Sep 04, 2017 10:14
== END 2017-09-04 10:49 | disposition home or self-care (01) ==
LOC: PHED 09:07
DX: L03.311 Cellulitis of abdominal wall (principal); I11.0 Hypertensive heart disease with heart failure; E11.9 Type 2 diabetes mellitus without complications; Z79.01 Long term (current) use of anticoagulants
CPT/HCPCS: 99283